=== PATIENT | male | born 1950 | race Caucasian/White ===

== ENCOUNTER 2017-08-06 08:04 | Day surgery (SDC) | payer MEDICARE, SELFPAY ==
[2017-08-06 08:20] VITALS: BP 118/75; PULSE 58; RESP 16; TEMP 36.1; O2SAT 99; BMI 25.1
--- NOTE | 2017-08-06 08:57 | PCM.HP.STD ---
Problem List (1) Colon cancer screening Status: Acute History of Present Illness Date of Admission: 08/06/17 The patient is a 67 year old M who presents for screening colonoscopy. Past Medical History Allergies No Known Allergies Allergy (Verified 07/30/17 11:16) Home Medications: Ambulatory Orders Medication Instructions Recorded Aspirin [Adult Low Dose Aspirin EC] 81 mg PO DAILY 03/15/15 Doxazosin Mesylate [Cardura] 1 mg PO QHS 03/15/15 Lisinopril [Zestril] 20 mg PO QHS 03/15/15 metoprolol succinate ER 25 mg 12.5 mg PO QHS 04/30/17 tablet,extended release 24 hr Smoking Status: Never smoker Tobacco Use: Non-smoker - *Family History Maternal History Items: No pertinent history Review of Systems Cardiovascular: Denies: Chest Pain, Chest Pressure, Chest Tightness, Palpitations Respiratory: Denies: Cough, Hemoptysis, Shortness of breath at rest, Shortness of breath upon exertion, Wheezing Gastrointestinal: Denies: Abdominal Pain, Constipation, Diarrhea, Hematemesis, Nausea, Melena, Vomiting VTE Information - Inpt Only VTE Present on Admission: No VTE Mechan Device Prophylaxis: None VTE Pharm Prophylaxis ordered?: No Reason prophylaxis not ordered:: Treatment Not Indicated Patient Problems: Active and Suspected Problems (Last Reviewed 04/30/17 @ 09:39 by Kylah Gallardo) Colon cancer screening (Acute) - Physical Exam Lungs: Clear to auscultation Cardiovascular: Regular rate, Regular Rhythm, No murmurs Abdomen: Bowel Sounds Present, Soft, Non Tender, Non-Distended Vital Signs Temp Pulse Resp BP Pulse Ox 97 F L 58 L 16 118/75 99 08/06/17 08:20 08/06/17 08:20 08/06/17 08:20 08/06/17 08:20 08/06/17 08:20 Oxygen Delivery Method Room Air Weight: 170 lb 3.15 oz Body Mass Index (BMI) 25.1 Assessment/Plan Active and Suspected Problems (Last Reviewed 04/30/17 @ 09:39 by Kylah Gallardo) Colon cancer screening (Acute) My plan is to perform a colonoscopy.
[2017-08-06 09:00] VITALS: BP 118/75; BP 96/41; PULSE 65; RESP 18; TEMP 36.3; O2SAT 96
--- NOTE | 2017-08-06 09:00 | OP.PCM_ITS ---
Problem List (1) Colon cancer screening Status: Acute Report of Operation Date of Procedure: 08/06/17 Pre-Operative Diagnosis: z12.11 screening colonoscopy Post-Operative Diagnosis: Same Surgery/Procedure Performed:: 43069 colonoscopy Type of Anesthesia:: MAC Anesthesiologist: Herbert Garg Description of Procedure: Patient was brought into the endoscopy suite. Placed on the left lateral decubitus position. Was given graded anesthesia. The scope was inserted into the rectum. The scope was directed through the sigmoid colon, descending colon , transverse colon, ascending colon, and into the cecum. Operative findings: 1. Cecum: Normal appearance no mass lesions normal ileocecal valve. 2. Ascending colon: Normal appearance no mass lesions. 3. Transverse colon: Normal appearance no mass lesions. 4. Descending colon: Normal appearance no mass lesions. 5. Sigmoid colon: Normal appearance no mass lesions a few scattered diverticuli were seen all small mouth. 6. Rectum: Normal appearance no mass lesions she had a moderate amount internal hemorrhoids identified. Scope was withdrawn digital rectal exam was performed showing no masses within the anus. Digital rectal exam was performed showing a smooth prostate with no nodules Patient had an excellent bowel prep the mucosal all look normal he has a stable colonoscopy and will not need to have a repeat colonoscopy for 10 years. - Admit VTE Documentation VTE Present on Admission: No VTE Mechan Device Prophylaxis: None VTE Pharm Prophylaxis ordered?: No Reason prophylaxis not ordered:: Treatment Not Indicated
[2017-08-06 09:05] VITALS: BP 118/75; BP 85/49; PULSE 63; RESP 18; O2SAT 94
[2017-08-06 09:10] VITALS: BP 118/75; BP 121/48; PULSE 65; RESP 18; O2SAT 98
[2017-08-06 09:15] VITALS: BP 103/56; BP 118/75; PULSE 62; RESP 18; TEMP 36.4; O2SAT 96
[2017-08-06 09:37] VITALS: BP 118/75
== END 2017-08-06 09:40 | disposition home or self-care (01) ==
LOC: EN 08:07 → AC 08:08
PROVIDERS: Family Provider Family Medicine; PCP Family Medicine; Visit Provider Surgery
PROC: 0DJD8ZZ Inspection of Lower Intestinal Tract, Via Natural or Artificial Opening Endoscopic (ICD-10-PCS; CPT 45378; principal; 2017-08-06 08:55)
DX: Z12.11 Encounter for screening for malignant neoplasm of colon (principal); K64.8 Other hemorrhoids; I10 Essential (primary) hypertension
CPT/HCPCS: G0121; J7120; J1610

== ENCOUNTER → 2017-09-08 13:05 | Outpatient (CLI) | payer MEDICARE, SELFPAY ==
--- NOTE | 2017-09-08 13:05 | DT_ITS ---
This patient was seen during an EMR downtime September 08, 2017 - September 15, 2017. This patient may have a combination of paper and electronic documentation or all paper documentation. All documentation is viewable within the e-chart portion of [employer] for each patient visit.
--- NOTE | 2017-09-10 14:56 | MRI_ITS ---
STUDY: MRI RIGHT KNEE REASON FOR EXAM: Medial knee pain, medial meniscal repair in 2013. TECHNIQUE: Standardized fat and water weighted pulse sequences were obtained in all 3 orthogonal planes. COMPARISON: MRI images 01/06/2015 and radiographs 03/08/2016. FINDINGS: There is a partial medial meniscectomy. There is a complex signal alteration of the posterior horn/posterior body of the medial meniscus (proton-density sagittal images 27-33; proton density coronal images 15-17), more suggestive of recurrent medial meniscal tear rather than scarring since there is a parameniscal cyst (T2 coronal images 13-17). There is peripheral subluxation of the medial meniscus. There is arthrosis of the medial femorotibial compartment with chondral thinning (T2 sagittal image 17). There is mild subchondral bone edema of the medial femoral condyle and tibial plateau (T2 coronal images 13-18), a stress phenomenon. Normal medial collateral ligamentous complex (MCL). Normal distal semimembranosus, gracilis and semitendinosus tendons. There is mild intrasubstance myxoid degeneration of the anterior horn of the lateral meniscus without discrete lateral meniscal tear. There is arthrosis of the lateral femorotibial compartment with partial-thickness chondral loss (T2 sagittal image 7). There is mild bone edema of the lateral femoral condyle and tibial plateau (T2 coronal images 15-18), a stress phenomenon. Normal proximal tibiofibular articulation. Normal lateral collateral (fibular) ligament. Normal popliteus tendon. Normal biceps femoris tendon. There is a chronic tear of the anterior cruciate ligament, likely a partial tear (T2 sagittal image 11; series 7 images 8, 9). Normal posterior cruciate ligament (PCL). Normal congruent patellofemoral articulation. There is mild arthrosis of the patellofemoral compartment with mild partial-thickness chondral loss (T2 sagittal image 11). Normal medial and lateral patellar retinaculum. Normal visualized quadriceps tendon. Normal patellar tendon. There is postoperative scarring in Hoffa's fat pad. There is a beotj-zt-jpkitrum sized joint effusion. There is a small popliteal cyst with mild extravasation of fluid (T2 sagittal images 15-22). The otherwise visualized osseous structures are unremarkable. MRI/Lower Ext Joint Only (Routine) IMPRESSION: Partial medial meniscectomy with signal alteration of the posterior horn/posterior body of the medial meniscus, more suggestive of recurrent medial meniscal tear rather than scarring since there is a parameniscal cyst. 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 Tricompartmental arthrosis. Mild subchondral bone edema of the medial and lateral femoral condyles, and medial and lateral tibial plateau, a stress phenomenon. Joint effusion. Small popliteal cyst with mild extravasation of fluid. Electronically Signed: Francois Downey MD at 9:26 EDT Tel , Service support ,
[2017-09-12 21:53] LABS: BUN 15 mg/dL (7-18); BUN/Creat Ratio 14.7 RATIO (10-20); Creatinine, Serum 1.02 mg/dL (0.70-1.30); EST Glomerular Filtration Rate 78 mL/min (>60); Est Glom Filt Rate - Afr Amer 95 mL/min (>60); Glucose 108 mg/dL (74-106)
[2017-09-12 21:54] LABS: ALB/GLOB Ratio 1.2 RATIO (0.9-2.4); AST(SGOT) 13 U/L (15-37); Alanine Aminotransfer ALT/SGPT 20 U/L (16-61); Albumin, Serum 3.5 g/dL (3.2-5.0); Alkaline Phosphatase 70 U/L (45-117); Anion Gap 8 (5-15); Calcium,Total 8.4 mg/dL (8.5-10.1); Chloride 107 mmol/L (98-107); Potassium 3.7 mmol/L (3.5-5.1); Protein, Total 6.5 g/dL (6.4-8.2); Sodium Level 140 mmol/L (136-145); Thyroid Stim Hormone (TSH) 0.95 uIU/mL (0.358-3.74)
[2017-09-12 22:01] LABS: International Normalized Ratio 1.1; Partial Thromboplast Time 29.2 Seconds (24.1-36.2); Prothrombin Time (Protime)PT. 13.8 SECONDS (11.7-14.9)
== END ==
PROVIDERS: Family Provider Family Medicine; PCP Family Medicine; Visit Provider Orthopaedic Surgery
DX: M23.91 Unspecified internal derangement of right knee (principal); R23.3 Spontaneous ecchymoses
CPT/HCPCS: 36415; 73721; 80053; 84443; 85610; 85730

== ENCOUNTER → 2017-09-23 09:42 | Outpatient (CLI) | payer MEDICARE, SELFPAY ==
[2017-09-23 10:44] LABS: Absolute Lymphocyte Count 1.94 X10^3/ul (0.83-4.51); Absolute Neutrophil Count 5.8 X10^3/uL (2.0-7.7); Basophil# 0.02 X10^3/uL; Basophil% 0.2 % (0-1); Eosinophil# 0.11 X10^3/uL; Eosinophils% 1.4 % (0-5); Lymphocyte # 1.94 X10^3/ul (4.0); Lymphocyte % 23.9 % (19-41); Mean Corp Hgb Conc 33.3 g/gl (32-36); Mean Corpuscular Hgb 31.4 pg (27.0-32.0); Mean Corpuscular Volume 94.3 fL (80-94); Mean Platelet Vol. 10.9 fl (6.2-12.0); Monocyte# 0.26 X10^3/uL; Monocyte% 3.2 % (0-10); Neutrophil # 5.79 X10^3/uL (2.7-7.7); Neutrophil % 71.2 % (47-70); Platelet Count 157 K/mm3 (150-450); RBC Distribution Width CV 13.1 % (11.6-14.6); RBC Distribution Width SD 45.2 fl (35.1-43.9); Red Blood Count 4.77 M/mm3 (4.6-6.2); White Blood Count 8.1 K/mm3 (4.4-11.0)
[2017-09-23 10:46] LABS: POSITIVE COUNT NO; POSITIVE DIFFERENTIAL NO; POSITIVE MORPHOLOGY NO
== END ==
PROVIDERS: Family Provider Family Medicine; PCP Family Medicine; Visit Provider Family Medicine
DX: R23.8 Other skin changes (principal)
CPT/HCPCS: 36415; 85025

== ENCOUNTER → 2017-09-24 09:43 | Outpatient (CLI) | payer MEDICARE, SELFPAY ==
--- NOTE | 2017-09-24 09:46 | RAD_ITS ---
STUDY: X-RAY - RIGHT KNEE REASON FOR EXAM: Male, 67 years old. Chronic pain TECHNIQUE: 4 view(s) of the knee. COMPARISON: None. FINDINGS: Normal visualized distal femur. Normal visualized proximal tibia and fibula. Normal proximal tibiofibular articulation. There is mild degenerative arthrosis of the medial femorotibial compartment. Normal lateral femorotibial compartment. Normal patellofemoral articulation. There is a soft tissue prominence in the suprapatellar region suggesting a small volume joint effusion. The soft tissue structures are unremarkable. RAD/Knee 4 or More Views IMPRESSION: There is mild degenerative arthrosis of the medial femorotibial compartment. There is a soft tissue prominence in the suprapatellar region suggesting a small volume joint effusion. Electronically Signed: Noel Gonzalez MD at 17:15 EDT , Service support ,
[2017-09-24 10:20] LABS: Lyme Ab Screen Interpretation REF LAB
[2017-09-25 13:38] LABS: Lyme Scn Total Ab w/Rflx <0.91 ISR (0.00-0.90)
== END ==
PROVIDERS: Family Provider Family Medicine; PCP Family Medicine; Visit Provider Orthopaedic Surgery
DX: M25.561 Pain in right knee (principal)
CPT/HCPCS: 36415; 73564; 86618

== ENCOUNTER → 2017-10-23 15:18 | Outpatient (CLI) | payer MEDICARE, SELFPAY ==
--- NOTE | 2017-10-23 15:20 | RAD_ITS ---
STUDY: X-RAY - LEFT HAND, ATTENTION MIDDLE FINGER REASON FOR EXAM: Male, 67 years old. Pain TECHNIQUE: 3 view(s) of the finger were obtained. COMPARISON: None. FINDINGS: Normal metacarpal head. Normal metacarpophalangeal joint. Normal proximal phalanx. Normal middle phalanx. Normal distal phalanx. Normal proximal interphalangeal joint. Normal distal interphalangeal joint. There is no soft tissue swelling. RAD/Finger(s) Min 2 Views IMPRESSION: Normal x-ray examination of the finger. Electronically Signed: Arthur Johnson MD at 16:01 EDT , Service support ,
== END ==
PROVIDERS: Family Provider Family Medicine; PCP Family Medicine; Visit Provider Surgery
DX: M67.442 Ganglion, left hand (principal); L60.8 Other nail disorders
CPT/HCPCS: 73140

== ENCOUNTER → 2017-10-30 12:36 | Outpatient (CLI) | payer MEDICARE, SELFPAY ==
[2017-10-30 12:41] LABS: Red Blood Cells-Urine 0 SEEN /hpf (0-5); Squamous Epithelial Cells - UA 0 SEEN /hpf (0-5)
[2017-10-30 13:39] LABS: Color, Urine Yellow (Yellow); Glucose, Dipstick Normal (Normal); Ketone-Dipstick 50 mg/dl (Negative); Leukocyte Esterase-Dipstick 25 /ul (Negative); Nitrite-Dipstick Negative (Negative); Occult Blood-Urine 10 /ul (Negative); Protein-Dipstick 15 mg/dl (Negative); Specific Gravity, Urine 1.015 (1.002-1.030); Urine Bilirubin Dipstick Negative (Negative); Urine Clarity Clear (Clear); Urine Urobilinogen Normal (Normal)
[2017-10-30 13:48] LABS: Bacteria 1+ /hpf (None Seen); Mucous, Urine 2+ /hpf (<or=2+); White Blood Cells 0-5 SEEN /hpf (0-5)
== END ==
PROVIDERS: Family Provider Family Medicine; PCP Family Medicine; Visit Provider Specialist
DX: G89.18 Other acute postprocedural pain (principal)
CPT/HCPCS: 81001

== ENCOUNTER 2017-11-02 13:48 | Emergency (ER) | payer MEDICARE, SELFPAY ==
[2017-11-02 13:49] VITALS: BP 124/64; PULSE 87; RESP 16; TEMP 36.6; O2SAT 98; BMI 27.3
--- NOTE | 2017-11-02 13:59 | ED.DCSUM_ITS ---
- ER Visit Summary Date of Service: 11/02/17 Chief Complaint: Chest pain History of Present Illness: The patient is a 67 M with one episode of sharp stabbing chest pain started an hour prior to arrival lasted about 20 minutes. No radiation. No tearing pain. No fever chills. No PE risk factors, no back pain. No pleuritic component. Physical Examination: Not appear in acute distress. Moist mucous membranes, no obvious facial deformity No C-spine tenderness supple neck. Regular rate and rhythm without any obvious murmurs Clear lungs bilaterally speaking in full sentences without any obvious respiratory distress Abdomen soft and nontender no guarding or rebound Moves all extremities without any difficulty or pain. Skin does not show any obvious rashes or lesions, no trauma. Alert oriented ?3 with no gross focal deficit Emergency Department Course and Treatment: Patient had an unremarkable workup, however he has a history of cardiomyopathy, hypertension, hypercholesterolemia and is a heavy smoker therefore I will admit him. Impression: Chest pain This note was generated with [employer] dictation software. It may contain incorrect words, spelling, and punctuation that were not noted in review of the chart prior to signing ED Disposition - Plan for ED Patient: Chief Complaint: Lower Extremity Injury Referrals: Hammad Burr MD [Primary Care Provider] -
--- NOTE | 2017-11-02 14:09 | RAD_ITS ---
STUDY: X-RAY - RIGHT KNEE REASON FOR EXAM: Male, 67 years old. Pain and swelling. TECHNIQUE: For view(s) of the knee. COMPARISON: February 21, 2014 radiograph FINDINGS: Right-sided hip arthroplasty. No evidence for periprosthetic fractures. Joint effusion. Subcutaneous emphysema. Subtle lucency in the distal right femur noted which was not seen on previous examination IMPRESSION: Status post right-sided knee arthroplasty. No evidence for acute fractures. Subtle lucency in the distal right femur noted not seen on previous examination. Differential considerations include intraosseous abscess however nonspecific in appearance Electronically Signed: Vinod Brown, at 15:09 EDT Tel , Service support , RAD/Knee 4 or More Views
[2017-11-02 15:19] LABS: Anion Gap 4 (5-15); BUN 15 mg/dL (7-18); BUN/Creat Ratio 12.2 RATIO (10-20); Calcium,Total 9.1 mg/dL (8.5-10.1); Chloride 101 mmol/L (98-107); Creatinine, Serum 1.23 mg/dL (0.70-1.30); EST Glomerular Filtration Rate 63 mL/min (>60); Est Glom Filt Rate - Afr Amer 76 mL/min (>60); Estimated Creatinine Clearance 55.98 ml/min; Glucose 128 mg/dL (74-106); Potassium 4.3 mmol/L (3.5-5.1); Sodium Level 134 mmol/L (136-145)
--- NOTE | 2017-11-02 15:34 | ED.DCSUM_ITS ---
- ER Visit Summary Date of Service: 11/02/17 Prior Chest pain chart dictated in error, please disregard Chief Complaint: Knee pain History of Present Illness: The patient is a 67 M presents with right knee pain. He had a right total knee augmentation 5 days ago. He concurrently developed a catheter associated urinary tract infection and he is on Bactrim he had high fevers, however they are improving. His issue today with edema of the right knee region there is some more erythema today. He does not have significant pain when sitting down this is baseline since the surgery. Physical Examination: Not appear in acute distress. Moist mucous membranes, no obvious facial deformity No C-spine tenderness supple neck. Regular rate and rhythm without any obvious murmurs Clear lungs bilaterally speaking in full sentences without any obvious respiratory distress Abdomen soft and nontender no guarding or rebound Knee evaluation reveals diffuse edema some ecchymoses. Very slight erythema is present around the staple site, no pallor. Leonel are clean dry and intact I cannot expectorate any discharge. Skin does not show any obvious rashes or lesions, no trauma. Alert oriented ?3 with no gross focal deficit Emergency Department Course and Treatment: X-rays unremarkable his workup in the emergency department is unremarkable all discussed with Dr. Myers, per his request I added a an ESR and CRP, he will follow these up tomorrow morning in the office in less than 24 hours. He does not wish any further antibiotics. He told patient to see him in the office tomorrow morning. I discussed with the patient. He will be discharged in stable condition. Impression: Postop knee pain This note was generated with [employer] dictation software. It may contain incorrect words, spelling, and punctuation that were not noted in review of the chart prior to signing ED Disposition - Plan for ED Patient: Disposition: Home or Assisted Living Chief Complaint: Lower Extremity Injury Instructions: ED Effusion Knee Referrals: Thanh Myers MD [STAFF PHYSICIAN] - 2 Days
[2017-11-02 15:35] LABS: Absolute Lymphocyte Count 0.52 X10^3/ul (0.83-4.51); Absolute Neutrophil Count 6.4 X10^3/uL (2.0-7.7); Basophil# 0.02 X10^3/uL; Basophil% 0.3 % (0-1); Eosinophil# 0.07 X10^3/uL; Eosinophils% 0.9 % (0-5); Hematocrit 37.2 % (40-54); Hemoglobin 12.4 g/dl (13.0-16.5); Lymphocyte # 0.52 X10^3/ul (4.0); Mean Corp Hgb Conc 33.3 g/gl (32-36); Mean Corpuscular Hgb 31.6 pg (27.0-32.0); Mean Corpuscular Volume 94.7 fL (80-94); Mean Platelet Vol. 9.6 fl (6.2-12.0); Monocyte# 0.45 X10^3/uL; Neutrophil # 6.39 X10^3/uL (2.7-7.7); Neutrophil % 85.7 % (47-70); Platelet Count 176 K/mm3 (150-450); RBC Distribution Width CV 12.4 % (11.6-14.6); RBC Distribution Width SD 42.1 fl (35.1-43.9); Red Blood Count 3.93 M/mm3 (4.6-6.2); White Blood Count 7.5 K/mm3 (4.4-11.0)
[2017-11-02 15:36] LABS: Differential Indicated SCAN CRITERIA MET; POSITIVE COUNT NO; POSITIVE DIFFERENTIAL YES; POSITIVE MORPHOLOGY NO
[2017-11-02 16:00] VITALS: BP 138/72; PULSE 72; RESP 16; O2SAT 94
[2017-11-02 16:05] LABS: Differential Comment SCANNED
[2017-11-02 16:08] LABS: Erythrocyte Sedimentation Rate 30 mm/hr (0-20)
== END 2017-11-02 16:01 | disposition home or self-care (01) ==
PROVIDERS: Emergency Provider Emergency Medicine; Family Provider Family Medicine; PCP Family Medicine
DX: G89.18 Other acute postprocedural pain (principal); M25.569 Pain in unspecified knee; R07.9 Chest pain, unspecified; R21 Rash and other nonspecific skin eruption; I10 Essential (primary) hypertension; E78.00 Pure hypercholesterolemia, unspecified; F17.200 Nicotine dependence, unspecified, uncomplicated; T83.518A Infection and inflammatory reaction due to other urinary catheter, initial encounter
CPT/HCPCS: 73564; 80048; 85025; 85652; 86140; 99282; A4216

== ENCOUNTER 2017-12-02 06:33 | Day surgery (SDC) | payer MEDICARE, SELFPAY ==
--- NOTE | 2017-12-01 23:41 | PCM.HP.BLA ---
History and Physical Date of Admission: 12/02/17 HISTORY OF PRESENT ILLNESS 67 year old man presents with a soft tissue mass on dorsum left long finger on the radial aspect at the DIP joint. It is clinically consistent with a mucous cyst. It has enlarged over the last several months. He denies any trauma. He denies any fever. He denies any numbness. He has also noted some nail grooving over the last couple of months. He has noted occasional small amounts of drainage from the finger nail. There has been no odor. He states it doesn't affect his activities of daily living. He is right hand dominant. Preop he had an Xray which was normal. PAST MEDICAL HISTORY Cataracts, bilateral Hearing problem Heart murmur Hypertension PAST SURGICAL HISTORY lateral meniscus repair of right knee cataract extraction gynecomastia surgery hydrocelectomy inguinal herniorrhaphy shoulder surgery tonsillectomy and adenoidectomy colonoscopy right knee arthroscopy right total knee surgery ALLERGIES morphine MEDICATIONS Aspirin [Adult Low Dose Aspirin EC] 81 mg PO DAILY 03/15/15 [History Confirmed 10/23/17] Doxazosin Mesylate [Cardura] 1 mg PO QHS 03/15/15 [History Confirmed 10/23/17] Lisinopril [Zestril] 20 mg PO QHS 03/15/15 [History Confirmed 10/23/17] metoprolol succinate ER 25 mg tablet,extended release 24 hr 12.5 mg PO QHS 04/30/17 [History Confirmed 10/23/17] FAMILY HISTORY Father - Diabetes, Heart disease, Hypertension, CVA (cerebral vascular accident) Mother - Hypertension, Cancer, Alzheimer's dementia, Anesthesia complication, Breast cancer SOCIAL HISTORY Smoking Status: Never smoker alcohol intake: never substance use type: does not use REVIEW OF SYSTEMS General - Denies fever, fatigue, and weight loss. Eyes - Denies cataracts and glaucoma. ENT - Denies nasal congestion and sore throat. Endocrine - Denies excessive thirst and urination. Skin - Denies suspicious lesions and skin cancer. Musculoskeletal - Denies joint pain, joint stiffness, weakness of muscles and joints, back pain, and arthritis. On the dorsum left long finger on the radial aspect at the DIP joint is a mucous cyst with nail grooving. Neuro - Denies headaches. Cardiovascular - Denies chest pain, fatigue, and shortness of breath with exertion. Psych - Denies anxiety and depression. Respiratory - Denies chronic cough and shortness of breath. Gastrointestinal - Denies nausea, vomiting, diarrhea, and constipation. Hematologic - Denies abnormal bruising and bleeding. Genitourinary - Denies hematuria and urinary frequency. PHYSICAL EXAMINATION General - Alert and Oriented HEENT - PERRL. EOMI. Throat is clear. Neck - Supple and nontender. No cervical adenopathy. Lungs - Clear to auscultation. Heart - Regular rate and rhythm. Abdomen - Soft and nondistended. Extremities - FROM. No axillary adenopathy. Radial pulses are palpable. On the dorsum left long finger on the radial aspect at the DIP joint is a soft tissue mass consistent with a mucous cyst. Measures 1 cm. Overlying skin is a little thin. No evidence of infection. There is nail grooving. Flexion and extension are intact. No sensory deficits. Fingers are warm with good capillary refill. No axillary adenopathy. Patient is right hand dominant. Neuro - CN II-XII grossly intact. Psych - Normal mood and affect. ASSESSMENT 1. 1 cm mucous cyst left long finger on the radial aspect at the DIP joint. 2. Nail grooving. PLAN Patient has a soft tissue mass left long finger that is clinically consistent with a mucous cyst. He has been developing nail grooving. Recommend excision of this mass and send it to Pathology for analysis to rule out carcinoma. Will need to excise any osteophytes to minimize recurrence. Sometimes these cysts extend underneath the extensor tendon. Postoperatively may need an extension splint for a few weeks to allow the weakened tendon to strengthen. Excising this mass should take pressure off the growth center of the nail complex and improve the nail grooving. Because the overlying skin is a little thin, will probably remove it. Since the dissection extends down to the tendon and bone, a skin graft would not be adequate for wound closure. He would need a dorsal skin advancement flap for reconstruction. Preop he had an Xray which was normal. Patient was informed of the risks and complications of the procedure including alternatives to surgery. These were discussed with the patient personally. Patient voices understanding and wishes to proceed. Some of the risks and complications were included in a form from the [employer]. Some of the risks and complications that were discussed included but were not inclusive of failure to diagnose including symptom relief, pain, infection, numbness, stiffness, loss of digit, RSD (CRPS), need for further surgery, contracture, nail deformity and wound healing problems.
[2017-12-02] VITALS (7 sets, daily range): BP systolic 104–135; BP diastolic 62–80; PULSE 65–75; RESP 16–18; TEMP 36.4–36.6; O2SAT 91–94; BMI 26.7
--- NOTE | 2017-12-02 08:00 | CYST_PTH ---
PATIENT: CUAUHTEMOC FUCHS LOC: [facility] [place] U#:[id number] AGE/SX: 67/M ROOM: RE12/02/[address]: Dr. Gunner Ball MD : 1950 BED: DIS: 12/02/2017 SPEC #: [id number] RECD: 12/02/17 13:50 STATUS: MOHIT SHERIDAN #: [id number] KATELYN: 12/02/17 08:[address]: Gunner Ball DEPT: SURGICAL PATHOLOGY RECD BY: Jl Marie ENTERED: 12/02/17 13:50 SP TYPE: Cyst OTHR DR: Dr. Hammad Burr MD Tissues: CYST Procedures: Surgery Specimen Level IV HEADER OPERATION: Excision mucous cyst, left long finger with skin flap PRE-OP DIAGNOSIS: Mucous cyst left long finger TISSUE SUBMITTED: Mucous cyst left long finger MICROSCOPIC DIAGNOSIS Mucous cyst of left long finger, biopsy: Fibrous walled cyst fragments consistent with mucous cyst. Fragments of hyaline cartilage and bone with mild reactive change. AM:kade 12/04/17 MICROSCOPIC DESCRIPTION Slides are reviewed. GROSS DESCRIPTION Received in fixative is one container labeled with the patient's name and designated mucous cyst left long finger. The specimen consists of multiple irregular fragments of light fatima-white soft tissue that in aggregate measure 2.5 x 1 x 0.1 cm. The specimen is totally submitted in one cassette. / AM:kade 12/02/17 TC:5 CPT: 29168
[2017-12-02] MEDS: Cefazolin 2 GM in 0.9% Normal Saline 100 ML IV (08:10)
[2017-12-02] MEDS: Mupirocin Ointment 22gm Tube 1 APPLIC (08:40)
--- NOTE | 2017-12-02 09:20 | PCM.IMDPSTOP ---
Immediate Post-Op Note Date of Procedure: 12/02/17 Primary Surgeon/Physician: Gunner Ball costume maker: None Pre-Operative Diagnosis: 1. 1 cm mucous cyst left long finger on the radial aspect at the DIP joint. 2. Nail grooving. Post-Operative Diagnosis: Same. Surgery/Procedure Performed:: Excision 1 cm mucous cyst left long finger on the radial aspect at the DIP joint. Description of Surgical Findings:: 67 year old man presents with a soft tissue mass on dorsum left long finger on the radial aspect at the DIP joint. It is clinically consistent with a mucous cyst. It has enlarged over the last several months. He denies any trauma. He denies any fever. He denies any numbness. He has also noted some nail grooving over the last couple of months. He has noted occasional small amounts of drainage from the finger nail. There has been no odor. He states it doesn't affect his activities of daily living. He is right hand dominant. Today the patient underwent excision 1 cm mucous cyst left long finger on the radial aspect at the DIP joint. Total tourniquet time - 50 minutes. Estimated Blood Loss: 2 ml. Specimen's removed: Mucous cyst and bony spur left long finger to Pathology. Drains: None. Type of Anesthesia:: Local MAC - xylocaine with epinephrine digital metacarpal block and IV sedation. - Admit VTE Documentation VTE Present on Admission: No VTE Mechan Device Prophylaxis: SCD's VTE Pharm Prophylaxis ordered?: No
--- NOTE | 2017-12-02 09:35 | PCM.DC ---
You will use the following diet at home:: No restrictions Discharge Activity: May not drive while taking narcotic pain medications., May Shower - place plastic bag over left hand when showering., - - keep left hand elevated. no heavy lifting. May shower in (days): 1 - place plastic bag over left hand when showering. May resume sexual activity in: No Restrictions Weight Bearing Status: Weight bearing as tolerated Lifting Restrictions: 20 lbs. Keep extremity elevated above heart level: Left Arm Call your doctor if your incision/area has: Continuous Slow Oozing, Sudden Increased Bleeding, Increased Pain/ Swelling, Increased Redness, Foul Smelling Discharge, Swelling at the incision site Call your doctor if you observe: Fever of 101 or Higher, Coldness, Increased Pain, Shortness of breath, Chest pain, Calf discomfort, Uncontrolled pain Change Dressing in (Days):: 7 - will change dressing in office. Cleanse incision/area with: - - wear plastic bag over left hand when showering. Allergies/Adverse Reactions: Allergies morphine Adverse Reaction (Verified 12/02/17 06:52) Nausea Medications to take at Discharge Aspirin [Adult Low Dose Aspirin EC] 81 mg PO DAILY 03/15/15 Doxazosin Mesylate [Cardura] 1 mg PO QHS 03/15/15 Lisinopril [Zestril] 20 mg PO QHS 03/15/15 metoprolol succinate ER 25 mg tablet,extended release 24 hr 12.5 mg PO QHS 04/30/17 Cefadroxil [Duricef] 500 mg PO BID #10 cap 12/02/17 Lactobacillus Acidophilus/Fos [Acidophilus Probiotic Tablet] 1 ea PO BID #10 tab 12/02/17 Oxycodone HCl/Acetaminophen [Percocet 5/325] 1 - 2 tab PO 4X/DAY PRN PRN 4 Days #30 tab 12/02/17 The following prescriptions were given: Oxycodone HCl/Acetaminophen [Percocet 5/325] 1 - 2 tab PO 4X/DAY PRN PRN 4 Days #30 tab PRN Reason: Pain Cefadroxil [Duricef] 500 mg PO BID #10 cap Lactobacillus Acidophilus/Fos [Acidophilus Probiotic Tablet] 1 ea PO BID #10 tab Primary Care Physician: Hammad Burr MD [Primary Care Provider] - Test Results: Test results from this visit will be discussed in further detail at your follow-up appointment, if applicable. Please Follow Up With: Gunner Ball MD When: one week. call [phone] for appt. Proposed Discharge Date: 12/02/17
--- NOTE | 2017-12-02 17:23 | PCM.OPRPT ---
Report of Operation Date of Procedure: 12/02/17 Pre-Operative Diagnosis: 1. 1 cm mucous cyst left long finger on the radial aspect at the DIP joint. 2. Nail grooving. Post-Operative Diagnosis: Same. Surgery/Procedure Performed:: Excision 1 cm mucous cyst left long finger on the radial aspect at the DIP joint. Description of Surgical Findings:: 67 year old man presents with a soft tissue mass on dorsum left long finger on the radial aspect at the DIP joint. It is clinically consistent with a mucous cyst. It has enlarged over the last several months. He denies any trauma. He denies any fever. He denies any numbness. He has also noted some nail grooving over the last couple of months. He has noted occasional small amounts of drainage from the finger nail. There has been no odor. He states it doesn't affect his activities of daily living. He is right hand dominant. Patient was informed of the risks and complications of the procedure including alternatives to surgery. These were discussed with the patient personally. Patient voices understanding and wishes to proceed. Some of the risks and complications were included in a form from the [employer]. Some of the risks and complications that were discussed included but were not inclusive of failure to diagnose including symptom relief, pain, infection, numbness, stiffness, loss of digit, RSD (CRPS), need for further surgery, contracture, nail deformity and wound healing problems. Total tourniquet time - 50 minutes. 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 Specimen's removed: Mucous cyst and bony spur left long finger to Pathology. Drains: None. Estimated Blood Loss (mL): 2 ml. Description of Procedure: Patient was taken to OR in supine position and was given IV sedation. The left long finger was prepped and draped in the usual fashion. SCD's were placed for DVT prophylaxis. Perioperative antibiotics were given intravenously. The base of the left long finger at the metacarpal level was infiltrated with xylocaine and epinephrine. After waiting 5 minutes for the anesthetic to take effect, I placed a tourniquet at the base of the left long finger. I made a horizontal incision just proximal to the eponychial fold and extended the incision vertically on the radial aspect. I dissected down to the extensor tendon. The mucous cyst was seen. It was located radial to the extensor tendon. It was excised down to the bone. There was some osteophytic spurs at the level of the DIP joint and they were excised with rongeurs to minimize recurrence. Further exploration showed there was no cyst extension underneath the tendon and there was no cyst seen on the ulnar aspect of the tendon. There was some capsular tissue extending to the eponychial fold which is where there was some drainage of the cyst preoperatively. Because the drainage came out of the eponychial fold, there was no pressure on the distal skin. Therefore no skin needed to be excised. So I should be able to close the wound primarily without needing a dorsal advancement skin flap. I excised this capsular tissue to minimize recurrence. The wound was irrigated with saline. I closed the wound in multiple layers with 5-0 Monocryl interrupted sutures for the deep dermis and subcutaneous tissue. The skin was approximated with 5-0 Prolene simple interrupted sutures. The tourniquet was released after 70 minutes. Hemostasis was obtained with gentle pressure and elevation. Antibiotic ointment was applied to the suture line followed by xeroform gauze and 2x2 gauze and 2 inch noemy wrap. Patient tolerated the procedure well and was sent to PACU in satisfactory condition. Patient will be sent home on antibiotics and pain medication. Patient will followup in a week for a wound check and for discussion of the pathology report. The sutures will be removed in two weeks. Will encourage range of motion exercises for the proximal finger. Can start bending the DIP joint after the sutures are removed. The tendon will have some swelling from the dissection, so it is a little weaker than usual. Will rest the distal tendon for a couple of weeks until the sutures are removed, and then encourage range of motion of the DIP joint as well. Any stiffness issues will necessitate evaluation by OT for range of motion exercises, strengthening, and edema management. Grafts/Implants Used: None. - Complications None. - Admit VTE Documentation VTE Present on Admission: No VTE Mechan Device Prophylaxis: SCD's VTE Pharm Prophylaxis ordered?: No Code Visit Surgery Charges CPT - 72710 ICD-10 - M67.442, L60.8
== END 2017-12-02 11:35 | disposition home or self-care (01) ==
LOC: SDC 06:33 → AC 06:34
PROVIDERS: Family Provider Family Medicine; PCP Family Medicine; Visit Provider Surgery
PROC: (CPT 26160; principal; 2017-12-02 07:50)
DX: M67.442 Ganglion, left hand (principal); L60.8 Other nail disorders; M67.844 Other specified disorders of tendon, left hand; I10 Essential (primary) hypertension
CPT/HCPCS: 26160; 88304; 88305; J7120

== ENCOUNTER → 2018-01-14 10:52 | Outpatient (CLI) | payer MEDICARE, SELFPAY ==
[2018-01-14 12:30] LABS: Erythrocyte Sedimentation Rate 9 mm/hr (0-20)
[2018-01-14 12:41] LABS: Absolute Lymphocyte Count 1.37 X10^3/ul (0.83-4.51); Absolute Neutrophil Count 4.4 X10^3/uL (2.0-7.7); Basophil# 0.02 X10^3/uL; Basophil% 0.3 % (0-1); Eosinophil# 0.09 X10^3/uL; Eosinophils% 1.4 % (0-5); Hematocrit 45.6 % (40-54); Hemoglobin 15.2 g/dl (13.0-16.5); Lymphocyte # 1.37 X10^3/ul (4.0); Lymphocyte % 21.9 % (19-41); Mean Corp Hgb Conc 33.3 g/gl (32-36); Mean Corpuscular Hgb 31.1 pg (27.0-32.0); Mean Corpuscular Volume 93.4 fL (80-94); Monocyte% 6.4 % (0-10); Neutrophil # 4.36 X10^3/uL (2.7-7.7); Neutrophil % 69.8 % (47-70); Platelet Count 154 K/mm3 (150-450); RBC Distribution Width CV 12.9 % (11.6-14.6); RBC Distribution Width SD 43.5 fl (35.1-43.9); Red Blood Count 4.88 M/mm3 (4.6-6.2); White Blood Count 6.3 K/mm3 (4.4-11.0)
[2018-01-14 12:45] LABS: ALB/GLOB Ratio 1.1 RATIO (0.9-2.4); AST(SGOT) 15 U/L (15-37); Alanine Aminotransfer ALT/SGPT 28 U/L (16-61); Albumin, Serum 3.7 g/dL (3.2-5.0); Alkaline Phosphatase 89 U/L (45-117); Anion Gap 6 (5-15); BUN 16 mg/dL (7-18); BUN/Creat Ratio 15.7 RATIO (10-20); CRP < 2.90 mg/L (0.0-3.0); Calcium,Total 8.7 mg/dL (8.5-10.1); Chloride 107 mmol/L (98-107); Creatinine, Serum 1.02 mg/dL (0.70-1.30); EST Glomerular Filtration Rate 78 mL/min (>60); Est Glom Filt Rate - Afr Amer 94 mL/min (>60); Globulin 3.3 g/dL (2.2-4.2); Glucose 110 mg/dL (74-106); Potassium 4.1 mmol/L (3.5-5.1); Sodium Level 139 mmol/L (136-145)
[2018-01-14 12:50] LABS: POSITIVE COUNT NO; POSITIVE DIFFERENTIAL NO; POSITIVE MORPHOLOGY NO
== END ==
PROVIDERS: Family Provider Family Medicine; PCP Family Medicine; Visit Provider Family Medicine
DX: R70.0 Elevated erythrocyte sedimentation rate (principal)
CPT/HCPCS: 36415; 80053; 85025; 85652; 86140

== ENCOUNTER → 2018-02-25 10:48 | Outpatient (CLI) | payer MEDICARE, SELFPAY ==
[2017-12-02 06:57] VITALS: BMI 26.7
--- NOTE | 2018-02-25 11:05 | EKG12_ITS ---
Test Reason : PRE-OP Blood Pressure : / mmHG Vent. Rate : 055 BPM Atrial Rate : 055 BPM P-R Int : 156 ms QRS Dur : 086 ms QT Int : 382 ms P-R-T Axes : 006 000 -07 degrees QTc Int : 365 ms Sinus bradycardia Otherwise normal ECG Confirmed by KEHINDE KENDRICK ([id number]), deputy editor in chief LUISA SOLIS ([id number]) on 02/25/2018 2:35:54 PM Referred By: Zackery Spicer Confirmed By:KEHINDE KENDRICK
[2018-02-25 11:20] LABS: Hematocrit 47.2 % (40-54); Hemoglobin 15.7 g/dl (13.0-16.5); Mean Corp Hgb Conc 33.3 g/gl (32-36); Mean Corpuscular Hgb 30.9 pg (27.0-32.0); Mean Corpuscular Volume 92.9 fL (80-94); Mean Platelet Vol. 10.8 fl (6.2-12.0); Platelet Count 163 K/mm3 (150-450); Red Blood Count 5.08 M/mm3 (4.6-6.2); White Blood Count 6.2 K/mm3 (4.4-11.0)
[2018-02-25 11:30] LABS: Scan Indicated on CBC? Y/N NO
[2018-02-25 11:43] LABS: Anion Gap 7 (5-15); BUN 15 mg/dL (7-18); BUN/Creat Ratio 13.6 RATIO (10-20); Chloride 106 mmol/L (98-107); EST Glomerular Filtration Rate 71 mL/min (>60); Est Glom Filt Rate - Afr Amer 86 mL/min (>60); Glucose 84 mg/dL (74-106); Potassium 4.6 mmol/L (3.5-5.1); Sodium Level 141 mmol/L (136-145)
== END ==
PROVIDERS: Family Provider Family Medicine; PCP Family Medicine; Referring Provider Otolaryngology; Visit Provider Otolaryngology
DX: Z01.818 Encounter for other preprocedural examination (principal)
CPT/HCPCS: 36415; 80048; 85027; 93005

== ENCOUNTER → 2018-03-02 16:57 | Outpatient (CLI) | payer MEDICARE, SELFPAY ==
[2017-12-02 06:57] VITALS: BMI 26.7
--- NOTE | 2018-03-02 11:45 | LES_PTH ---
PATIENT: CUAUHTEMOC FUCHS LOC: [facility] U#:[id number] AGE/SX: 74/M ROOM: RE03/02/[address]: Dr. Zackery Spicer MD : [id number] BED: DIS: SPEC #: [id number] RECD: 03/02/18 16:10 STATUS: MOHIT SHERIDAN #: [id number] KATELYN: 03/02/18 11:[address]: Zackery Spicer DEPT: SURGICAL PATHOLOGY RECD BY: Divine Pelaez ENTERED: 03/03/18 10:05 SP TYPE: Lesion OTHR DR: Dr. Hammad Burr MD Tissues: A - Skin of external ear, NOS B - Skin of external ear, NOS Procedures: Surgery Specimen Level IV HEADER OPERATION: Excision right ear mass PRE-OP DIAGNOSIS: Benign neoplasm, right ear TISSUE SUBMITTED: A. Right external ear neoplasm, B. Additional tissue MICROSCOPIC DIAGNOSIS A. Right external ear neoplasm, biopsy: Seborrheic keratosis, inflamed. Solar elastosis. See comment. B. Right external ear lesion, additional tissue, biopsy: Skin and soft tissue with solar elastosis. Fragments of hyaline cartilage with no pathologic change. See comment. AM:kade 03/04/18 COMMENT A & B. There is no evidence of malignancy. MICROSCOPIC DESCRIPTION Slides are reviewed. GROSS DESCRIPTION A - Received in fixative is one container labeled with the patient's name and designated right external ear neoplasm. The specimen consists of a piece of fatima-white skin ellipse measuring 2.3 x 0.9 cm and up to 0.2 cm in thickness. There is a brownish, raised lesion on the surface measuring 2 x 0.7 cm. The specimen is inked and submitted entirely in one cassette. It will be serially sectioned at the time of embedding. B - Received in fixative is one container labeled with the patient's name and designated additional tissue. The specimen consists of a piece of skin with underlying tissue and cartilage measuring 2.5 x 0.5 cm and up to 0.4 cm in thickness. The specimen is inked and submitted entirely in one cassette. It will be serially sectioned at the time of embedding. / TEREZA:kade 03/03/18 TC:5 CPT: 39888 x2
--- OUTSIDE RECORDS SUMMARY | 2018-04-14 16:17 | XMS RPT_ITS ---
:1950 Author Organization OHIP Support Name Relationship Address Phone SHILA JOSEPHGUIDO Unavailable [address] + [place] [address] R Unavailable Unavailable Unavailable LITO FUCHS Unavailable [address] + [place] [address] R Unavailable Unavailable Unavailable LITO FUCHS Unavailable [address] + [place] [address] R Unavailable Unavailable Unavailable LITO FUCHS Unavailable [address] + [place] [address] R Unavailable Unavailable Unavailable LITO FUCHS Unavailable [address] + [place] [address] R Unavailable Unavailable Unavailable LITO FUCHS Unavailable [address] + [place] [address] R Unavailable Unavailable Unavailable LITO FUCHS Unavailable [address] + [place] [address] R Unavailable Unavailable Unavailable LITO FUCHS Unavailable [address] + [place] [address] R Unavailable Unavailable Unavailable LITO FUCHS Unavailable [address] + [place] [address] R Unavailable Unavailable Unavailable LITO FUCHS Unavailable [address] + [place] [address] R Unavailable Unavailable Unavailable LITO FUCHS Unavailable [address] + [place] [address] R Unavailable Unavailable Unavailable LITO FUCHS Unavailable [address] + [place] [address] R Unavailable Unavailable Unavailable LITO FUCHS Unavailable [address] + [place] [address] R Unavailable Unavailable Unavailable LITO FUCHS Unavailable Unavailable + ~(330 LITO FUCHS Unavailable Unavailable + ~(330 LITO FUCHS Unavailable [address] + [place] [address] R Unavailable Unavailable Unavailable LITO FUCHS Unavailable [address] + [place] [address] R Unavailable Unavailable Unavailable LITO FUCHS Unavailable Unavailable + ~(330 LITO FUCHS Unavailable [address] + [place] [address] R Unavailable Unavailable Unavailable LITO FUCHS Unavailable [address] + [place] [address] R Unavailable Unavailable Unavailable LITO FUCHS Unavailable [address] + [place] [address] R Unavailable Unavailable Unavailable LITO FUCHS Unavailable [address] [phone] [place] [address] R Unavailable Unavailable Unavailable LITO FUCHS Unavailable [address] [phone] [place] [address] R Unavailable Unavailable Unavailable LITO FUCHS Unavailable [address] + [place] [address] R Unavailable Unavailable Unavailable LITO FUCHS Unavailable [address] [phone] [place] [address] R Unavailable Unavailable Unavailable LITO FUCHS Unavailable [address] [phone] [place] [address] R Unavailable Unavailable Unavailable LITO FUCHS Unavailable [address] [phone] [place] [address] R Unavailable Unavailable Unavailable LITO FUCHS Unavailable [address] [phone] [place] [address] R Unavailable Unavailable Unavailable LITO FUCHS Unavailable [address] [phone] [place] [address] R Unavailable Unavailable Unavailable LITO FUCHS Unavailable [address] [phone] [place] [address] R Unavailable Unavailable Unavailable Care Team Providers Name Role Phone MD. CITLALY ROMANO MD. Consulting Unavailable MICKEY MALIK, THANH Mayen Admitting Unavailable LENO FLETCHER, DAMIAN A Primary Care Unavailable MICKEY MALIK, THANH Mayen Attending Unavailable LENO FLETCHER, DAMIAN A Primary Care Unavailable THANH AREVALO MD Attending Unavailable Connor Mcclendon Attending Unavailable Burr, Damian Referring Unavailable Burr, Damian Primary Care Unavailable Nurse, Surgery Attending Unavailable Burr, Damian Referring Unavailable Jerson Buckley Attending Unavailable Burr, Damian Primary Care Unavailable Blanco, Jerson Referring Unavailable Jerson Buckley Attending Unavailable Marcio, Jerson Referring Unavailable Burr, Damian Primary Care Unavailable Jerson Buckley Consulting Unavailable Connor Mcclendon Attending Unavailable Burr, Damian Referring Unavailable Burr, Damian Primary Care Unavailable Jerson Buckley Attending Unavailable Burr, Damian Referring Unavailable Burr, Damian Primary Care Unavailable Connor Mcclendon Attending Unavailable Hakan, Connor Referring Unavailable Burr, Damian Primary Care Unavailable Yakelin Lee Attending Unavailable Connor Mcclendon Attending Unavailable Burr, Damian Referring Unavailable Burr, Damian Attending Unavailable Burr, Damian Referring Unavailable Burr, Damian Primary Care Unavailable Connor Mcclendon Attending Unavailable Burr, Damian Referring Unavailable Burr, Damian Primary Care Unavailable Connor Mcclendon Attending Unavailable Connor Mcclendon Referring Unavailable Burr, Damian Primary Care Unavailable Gunner Ball Attending Unavailable Burr, Damian Referring Unavailable Burr, Damian Primary Care Unavailable Gunner Ball Attending Unavailable Gunner Ball Referring Unavailable Burr, Damian Primary Care Unavailable Thanh Arevalo Attending Unavailable Burr, Damian Primary Care Unavailable Mickey Thanh Referring Unavailable Burr, Damian Primary Care Unavailable Deon Moore Attending Unavailable Gunner Ball Attending Unavailable Gunner Ball Referring Unavailable Burr, Damian Primary Care Unavailable Gunner Ball Attending Unavailable Gunner Ball Referring Unavailable Burr, Damian Primary Care Unavailable Gunner Ball Consulting Unavailable Gunner Ball Attending Unavailable Gunner Ball Referring Unavailable Burr, Damian Primary Care Unavailable Gunner Ball Consulting Unavailable Gunner Ball Attending Unavailable Burr, Damian Referring Unavailable Burr, Damian Primary Care Unavailable Gunner Ball Attending Unavailable Burr, Damian Referring Unavailable Burr, Damian Primary Care Unavailable Arcelia August Attending Unavailable Burr, Damian Referring Unavailable Burr, Damian Attending Unavailable Burr, Damian Primary Care Unavailable Nayan, Zackery Attending Unavailable Nayan, Zackery Referring Unavailable Burr, Damian Primary Care Unavailable Nayan, Zackery Attending Unavailable Nayan, Zackery Referring Unavailable Burr, Damian Primary Care Unavailable Gunner Ball Attending Unavailable Burr, Damian Referring Unavailable Jerson Kendrick Attending Unavailable Nayan, Zackeyr Referring Unavailable PROBLEMS PROBLEMS DATE TYPE CONDITION / CODE ATTENDING STATUS SOURCE 03/11/2018 Unknown R00.1 - Bradycardia, Kendrick Jerson Active [place] unspecified / Community R00.1(ICD-10) Hospital Repository 12/05/2017 Unknown G89.18 - Other acute Gunner Ball Active [place] post[facility]cedural pain [facility] / G89.18(ICD-10) Hospital Repository 10/23/2017 Unknown L60.8 - Other nail Gunner Ball Active [place] disorders / Community L60.8(ICD-10) Hospital Repository 09/24/2017 Unknown M25.561 - Pain in Connor Mcclendon Active [place] right knee / Community M25.561(ICD-10) Hospital Repository 09/24/2017 Unknown M25.461 - Effusion, Connor Mcclendon Active [place] right knee / Community M25.461(ICD-10) Hospital Repository 10/01/2017 Unknown M23.91 - Unspecified Connor Mcclendon Active [place] internal derangement [facility] of right knee / Hospital M23.91(ICD-10) Repository PROCEDURES PROCEDURES No Procedure Records FoundRESULTS RESULTS PLASTIC SURGERY Observed: 03/20/2018 Status: F Source: [place] VISIT REPORT 6:42 PM [facility] REPOSITORY [facility] [address] [place] [address] OFFICE VISIT Date of Service: 03/11/18 MR#: [id number] Acct: [id number] Name: CUAUHTEMOC FUCHS Rep #: [id number] : 1950 Provider: Gunner Ball MD Age/Sex: 67/M Location: [facility] Status: Signed Intake Vital Signs03/11/18 Height 5 ft 9 in 03/11/18 Weight: 184 lb 4 oz Intake Visit Reasons: postop surgery 12/02/17 Surg Nurse Required: No Accompanied by: None Is patient in pain?: No Allergies morphine Adverse Reaction (Verified 03/11/18 11:08) Nausea Medications Aspirin [Adult Low Dose Aspirin EC] 81 mg PO DAILY 03/15/15 [History Confirmed 12/02/17] Doxazosin Mesylate [Cardura] 1 mg PO QHS 03/15/15 [History Confirmed 12/02/17] Lisinopril [Zestril] 20 mg PO QHS 03/15/15 [History Confirmed 12/02/17] metoprolol succinate ER 25 mg tablet,extended release 24 hr 12.5 mg PO QHS 04/30/17 [History Confirmed 12/02/17] Cefadroxil [Duricef] 500 mg PO BID #10 cap 12/02/17 [Rx] Lactobacillus Acidophilus/Fos [Acidophilus Probiotic Tablet] 1 ea PO BID #10 tab 12/02/17 [Rx] Oxycodone HCl/Acetaminophen [Percocet 5/325] 1 - 2 tab PO 4X/DAY PRN PRN 4 Days #30 tab 12/02/17 [Rx] PFSH Medical History Cataracts, bilateral (Acute) Hearing problem (Acute) Heart murmur (Acute) Hypertension (Chronic) Surgical History H/O lateral meniscus repair of right knee (Acute) History of cataract extraction (Acute) History of gynecomastia (Acute) History of hydrocelectomy (Acute) History of inguinal herniorrhaphy (Acute) History of shoulder surgery (Acute) History of tonsillectomy and adenoidectomy (Acute) S/P colonoscopy (Acute) Cataract extraction status (Inactive) Gynecomastia (Inactive) H/O hernia repair (Inactive) History of tonsillectomy (Inactive) S/P right knee arthroscopy (Inactive) S/P shoulder surgery (Inactive) Family History Father Diabetes Heart disease Hypertension CVA (cerebral vascular accident) Mother Hypertension Cancer Alzheimer's dementia Anesthesia complication Breast cancer Social History Smoking Status: Never smoker alcohol intake: never substance use type: does not use additional social history: DOES USE ASPIRIN DOES USE IBUPROFEN HPI postop surgery 12/02/17: Details: Postop visit from his surgery on 12/02/17 where he underwent excision 1 cm mucous cyst left long finger on the radial aspect at the DIP joint. He comes in today with less some discomfort in his nail. He states his previous tingling has resolved. He does ok at work. He has noticed that right where the nail is the most sensitive, it feels thin. He has been wearing his extension splint at night. In the morning, the finger is straight. After taking the splint off, about an hour later, he has noticed a slight extension lag of about [address] stays that way the rest of the day. On exam, his incision is healed. Swelling has resolved. He states the finger doesn't feel tight anymore. He has good flexion. He can make a fist and has good palliative care specialist strength. He has good range of motion of his left hand. There is a slight extension lag at the DIP joint left long finger of about 5 degrees. Less than at his last visit. He states he has been wearing the extension splint at night and he has noticed a difference. There is proximal nail growth and it appears smoother with less grooving at this time. On the proximal radial aspect of the nail is some evidence of a thinner nail. This is where the most discomfort is located. The nail should toughen with time. The eponychial fold is slightly deformed from scarring. It is not bothersome to him at this time. He will continue the extension splint to keep the DIP joint extended which he will wear at night and also wear the extension splint on an as needed basis. Pathology showed the lesion was a fibrous walled cyst fragments consistent with mucous cyst, fragments of hyaline cartilage and bone with mild reactive change. No carcinoma was seen. Encouraged range of motion exercises to minimize stiffness. Massage incision with skin lotion daily to help with lymphatic drainage and to minimize swelling. If there is persistent pain in the nail bed complex, he may need complete removal of the nail complex and then reconstruct with a skin graft or a skin flap. The skin flap may require two stages. Follow up on an as needed basis if symptomatic. It should resolve with time. Assessment AND Plan Problems 1. Mucous cyst of digit of left hand M67.442 2. 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 03/14/18 182 <Electronically signed by Gunner Ball MD> Date Gunner Ball MD 03/20/18 1842<Electronically signed by Arcelia RODRIGUEZC> Cosigner Signature: Date (if applicable) Arcelia AugustC CC: 12 LEAD ELECTROCARDIOGRAM Observed: 03/06/2018 Status: F Source: [place] 9:15 AM [facility] REPOSITORY [facility] Cardiovascular Services [address] [place] [address] 12 Lead EKG 02/25/18 1115 MR#: [id number] Acct: [id number] Name: CUAUHTEMOC FUCHS Rep #: [id number] : 1950 67 From: Jerson Kendrick MD Attending Dr: Zackery Spicer MD Status: REG CLI Ordering Dr: Zackery Spicer MD Date: 02/25/18 Location: LAB Sex: M C Admitted: Test Reason : PRE-OP Blood Pressure : / mmHG Vent. Rate : 055 BPM Atrial Rate : 055 BPM P-R Int : 156 ms QRS Dur : 086 ms QT Int : 382 ms P-R-T Axes : 006 000 -07 degrees QTc Int : 365 ms Sinus bradycardia Otherwise normal ECG Confirmed by JERSON KENDRICK ([id number]), manuscript editor LUISA SOLIS ([id number]) on 02/25/2018 2:35:54 PM Referred By: Zackery Spicer Confirmed By:JERSON KENDRICK 02/25/18 1435 Date Jerson Kendrick MD CC: Damian Burr MD; Zackery Spicer MD Signed LESION (CHOOSE SITE) Observed: 03/02/2018 Status: F Source: [place] 11:45 AM [facility] REPOSITORY Patient: CUAUHTEMOC FUCHS : 1950 (67/M) Acct Num: [id number] Phys: Zackery Spicer MD Unit Num: [id number] Loc: [facility]SPEC Specimen: [id number] Received: 03/02/18 - 1609 Spec Type: Lesion TISSUES 1 TISSUES: A. Skin of external ear, NOS B. Skin of external ear, NOS COMMENT A AND B. There is no evidence of malignancy. GROSS DESCRIPTION A - Received in fixative is one container labeled with the patient's name and designated right external ear neoplasm. The specimen consists of a piece of fatima-white skin ellipse measuring 2.3 x 0.9 cm and up to 0.2 cm in thickness. There is a brownish, raised lesion on the surface measuring 2 x 0.7 cm. The specimen is inked and submitted entirely in one cassette. It will be serially sectioned at the time of embedding. B - Received in fixative is one container labeled with the patient's name and designated additional tissue. The specimen consists of a piece of skin with underlying tissue and cartilage measuring 2.5 x 0.5 cm and up to 0.4 cm in thickness. The specimen is inked and submitted entirely in one cassette. It will be serially sectioned at the time of embedding. / SJ:kade 03/03/18 TC:5 CPT: 24685 x2 HEADER OPERATION: Excision right ear mass PRE-OP DIAGNOSIS: Benign neoplasm, right ear TISSUE SUBMITTED: A. Right external ear neoplasm, B. Additional tissue MICROSCOPIC DESCRIPTION Slides are reviewed. MICROSCOPIC DIAGNOSIS A. Right external ear neoplasm, biopsy: Seborrheic keratosis, inflamed. Solar elastosis. See comment. B. Right external ear lesion, additional tissue, biopsy: Skin and soft tissue with solar elastosis. Fragments of hyaline cartilage with no pathologic change. See comment. AM:kade 03/04/18 Signed Ted Huff 03/04/18 <signature on file> Performed By: #### PLES #### [facility] [address] [place], [place], [id number] CBC-COMPLETE BLOOD CNT Collected: 02/25/2018 Status: F Source: [place] NO DIFF 10:57 AM [facility] REPOSITORY TYPE CODE TESTS RESULT OUT OF RANGE REFERENCE UNITS LAB L100.1000 4.4-11.0 K/mm3 Normal WBC 6.2 LAB L100.1200 4.6-6.2 M/mm3 Normal RBC 5.08 LAB L100.1300 13.0-16.5 g/dl Normal HGB 15.7 LAB L100.1400 40-54 % Normal HCT 47.2 LAB L100.1500 80-94 fL Normal MCV 92.9 LAB L100.1600 27.0-32.0 pg Normal MCH 30.9 LAB L100.1700 32-36 g/gl Normal MCHC 33.3 LAB L100.1810 11.6-14.6 % Normal RDW CV 13.0 LAB L100.1820 35.1-43.9 fl Normal RDW SD 43.0 LAB L100.1900 150-450 K/mm3 Normal PLT 163 LAB L100.2000 6.2-12.0 fl Normal MPV 10.8 Performed By: #### L100.0500 #### [facility] [place], [address] BASIC METABOLIC Collected: 02/25/2018 Status: F Source: [place] PROFILE (BMP) 10:57 AM [facility] REPOSITORY TYPE CODE TESTS RESULT OUT OF RANGE REFERENCE UNITS LAB L501.0100 74-106 mg/dL Normal GLU 84 Result Comment: Please note revised GLUCOSE reference range effective 2017. LAB L501.1000 7-18 mg/dL Normal BUN 15 LAB L501.1100 0.70-1.30 mg/dL Normal CREAT,SERUM 1.10 Result Comment: The validity of the calculated GFR AND GFRAA in patients over 70 years has not been determined. Clinical correlation is essential. LAB L501.1110 >60 mL/min Normal EST GFR 71 Result Comment: Non- GFR Calc LAB L501.1115 >60 mL/min Normal EST GFR - AA 86 Result Comment: GFR Calc LAB L501.1300 10-20 RATIO Normal BUN/CRE 13.6 LAB L501.2200 8.5-10.1 mg/dL CA Normal 9.0 LAB L501.5300 136-145 mmol/L NA Normal 141 LAB L501.5600 3.5-5.1 mmol/L K Normal 4.6 LAB L501.5900 98-107 mmol/L CL Normal 106 LAB L501.6100 21.0-32.0 mmol/L Normal CO2 28.0 LAB L501.6200 5-15 Normal GAP 7 Performed By: #### L500.2500 #### [facility] [address], [address] PLASTIC SURGERY Observed: 01/15/2018 Status: F Source: [place] VISIT REPORT 3:54 PM [facility] REPOSITORY [facility] [address] [place] [address] OFFICE VISIT Date of Service: 01/08/18 MR#: [id number] Acct: [id number] Name: CUAUHTEMOC FUCHS Roni Rep #: [id number] : 1950 Provider: JUAN August Age/Sex: 67/M Location: [facility] Status: Signed Intake Intake Visit Reasons: postop surgery 12/02/17 Allergies morphine Adverse Reaction (Verified 12/10/17 08:46) Nausea Medications Aspirin [Adult Low Dose Aspirin EC] 81 mg PO DAILY 03/15/15 [History Confirmed 12/02/17] Doxazosin Mesylate [Cardura] 1 mg PO QHS 03/15/15 [History Confirmed 12/02/17] Lisinopril [Zestril] 20 mg PO QHS 03/15/15 [History Confirmed 12/02/17] metoprolol succinate ER 25 mg tablet,extended release 24 hr 12.5 mg PO QHS 04/30/17 [History Confirmed 12/02/17] Cefadroxil [Duricef] 500 mg PO BID #10 cap 12/02/17 [Rx] Lactobacillus Acidophilus/Fos [Acidophilus Probiotic Tablet] 1 ea PO BID #10 tab 12/02/17 [Rx] Oxycodone HCl/Acetaminophen [Percocet 5/325] 1 - 2 tab PO 4X/DAY PRN PRN 4 Days #30 tab 12/02/17 [Rx] PFSH Medical History Cataracts, bilateral (Acute) Hearing problem (Acute) Heart murmur (Acute) Hypertension (Chronic) Surgical History H/O lateral meniscus repair of right knee (Acute) History of cataract extraction (Acute) History of gynecomastia (Acute) History of hydrocelectomy (Acute) History of inguinal herniorrhaphy (Acute) History of shoulder surgery (Acute) History of tonsillectomy and adenoidectomy (Acute) S/P colonoscopy (Acute) Cataract extraction status (Inactive) Gynecomastia (Inactive) H/O hernia repair (Inactive) History of tonsillectomy (Inactive) S/P right knee arthroscopy (Inactive) S/P shoulder surgery (Inactive) Family History Father Diabetes Heart disease Hypertension CVA (cerebral vascular accident) Mother Hypertension Cancer Alzheimer's dementia Anesthesia complication Breast cancer Social History Smoking Status: Never smoker alcohol intake: never substance use type: does not use additional social history: DOES USE ASPIRIN DOES USE IBUPROFEN HPI postop surgery 12/02/17: Details: Postop visit from his recent surgery on 12/02/17 where he underwent excision 1 cm mucous cyst left long finger on the radial aspect at the DIP joint. He comes in today with less tingling of left long finger. He has concerns that he saw some clearish drainage from the eponychial fold. He denies fever. He has been working a lot with his hands. Sometimes he will wear gloves at work. On exam, his incision is healed. Swelling has resolved. He has good flexion. He can make a fist and has good palliative care specialist strength. There is a slight extension lag at the DIP joint left long finger. Less than at his last visit. He states he has been wearing the extension splint at night and he has noticed a difference. During the day he can also wear it but may have to wait until he comes home from work. There is proximal nail growth and it appears smoother without evidence of grooving at this time. Reassured the patient that the clearish drainage was probably residual swelling from the surgery. The eponychial fold is an area of weakness that can allow some post-op edema to leak through. He will continue the extension splint to keep the DIP joint extended which he will wear at night. Pathology showed the lesion was a fibrous walled cyst fragments consistent with mucous cyst, fragments of hyaline cartilage and bone with mild reactive change. No carcinoma was seen. Encouraged range of motion exercises to minimize stiffness. Massage incision with skin lotion daily to help with lymphatic drainage and to minimize swelling. Follow up on an as needed basis if symptomatic from extension lag. It should resolve with time. Also if there is continued clearish drainage from his nail fold, then return for further evaluation. I anticipate it will be a self-limiting process. Assessment AND Plan Problems 1. Mucous cyst of digit of left hand M67.442 2. 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, [address] CBC W/DIFF, AUTOMATED Collected: 01/14/2018 Status: F Source: [place] 10:54 AM [facility] REPOSITORY TYPE CODE TESTS RESULT OUT OF RANGE REFERENCE UNITS LAB L100.1000 4.4-11.0 K/mm3 Normal WBC 6.3 LAB L100.1200 4.6-6.2 M/mm3 Normal RBC 4.88 LAB L100.1300 13.0-16.5 g/dl Normal HGB 15.2 LAB L100.1400 40-54 % Normal HCT 45.6 LAB L100.1500 80-94 fL Normal MCV 93.4 LAB L100.1600 27.0-32.0 pg Normal MCH 31.1 LAB L100.1700 32-36 g/gl Normal MCHC 33.3 LAB L100.1810 11.6-14.6 % Normal RDW CV 12.9 LAB L100.1820 35.1-43.9 fl Normal RDW SD 43.5 LAB L100.1900 150-450 K/mm3 Normal PLT 154 LAB L100.2000 6.2-12.0 fl Normal MPV 11.0 LAB L100.2100 47-70 % Normal NEUT% 69.8 LAB L100.2200 19-41 % Normal LY% 21.9 LAB L100.2300 0-10 % Normal MONO% 6.4 LAB L100.2400 0-5 % Normal EO% 1.4 LAB L100.2500 0-1 % Normal BASO% 0.3 LAB L100.2550 0.0-0.9 % Normal IM GRAN % 0.200 Result Comment: IG% - Immature Granulocytes (promyelocytes, myelocytes and metamyelocytes) > 1% indicates that a LEFT SHIFT is Present. LAB L100.2620 2.0-7.7 X10 3/uL Normal Absolute Neut 4.4 LAB L100.2720 0.83-4.51 X10 3/ul Normal Absolute Lymph 1.37 Performed By: #### L101.9900, L100.0100 #### [facility] [address] [place], [place], [address] COMPREHENSIVE METABOLIC Collected: 01/14/2018 Status: F Source: [facility] 10:54 AM [facility] REPOSITORY TYPE CODE TESTS RESULT OUT OF RANGE REFERENCE UNITS LAB L501.0100 74-106 mg/dL High GLU 110 Result Comment: Fasting Glucose result from 100 to 125 mg/dL suggests IMPAIRED HOMEOSTASIS per A.D.A. criteria. Please note revised GLUCOSE reference range effective 2017. LAB L501.1000 7-18 mg/dL Normal BUN 16 LAB L501.1100 0.70-1.30 mg/dL Normal CREAT,SERUM 1.02 Result Comment: The validity of the calculated GFR AND GFRAA in patients over 70 years has not been determined. Clinical correlation is essential. LAB L501.1110 >60 mL/min Normal EST GFR 78 Result Comment: Non- GFR Calc LAB L501.1115 >60 mL/min Normal EST GFR - AA 94 Result Comment: GFR Calc LAB L501.1300 10-20 RATIO Normal BUN/CRE 15.7 LAB L501.1500 6.4-8.2 g/dL T Normal PROT 7.0 LAB L501.1800 3.2-5.0 g/dL Normal ALB 3.7 LAB L501.1950 2.2-4.2 g/dL Normal GLOB 3.3 LAB L501.2000 0.9-2.4 RATIO Normal A/G 1.1 LAB L501.2200 8.5-10.1 mg/dL CA Normal 8.7 LAB L501.4100 15-37 U/L Normal AST 15 LAB L501.4305 45-117 U/L Normal ALK P 89 LAB L501.4405 16-61 U/L Normal ALT 28 LAB L501.4600 0.20-1.00 mg/dL T Normal BILI 0.80 LAB L501.5300 136-145 mmol/L NA Normal 139 LAB L501.5600 3.5-5.1 mmol/L K Normal 4.1 LAB L501.5900 98-107 mmol/L CL Normal 107 LAB L501.6100 21.0-32.0 mmol/L Normal CO2 26.0 LAB L501.6200 5-15 Normal GAP 6 Performed By: #### L500.4050, L501.6710 #### [facility] [address] [place], [place], [address] CRP Collected: 01/14/2018 Status: F Source: [place] 10:54 AM [facility] REPOSITORY TYPE CODE TESTS RESULT OUT OF RANGE REFERENCE UNITS LAB L501.6710 0.0-3.0 mg/L Normal < 2.90 C-REACTIVE PROT Result Comment: C-Reactive Protein (CRP) provides useful information for the diagnosis, therapy and monitoring of inflammatory processes and associated diseases. For the evaluation of Relative Risk for Cardiovascular Disease, a High Sensitivity CRP (HSCRP) should be ordered. Performed By: #### L500.4050, L501.6710 #### [facility] [address] [place], [address] PLASTIC SURGERY Observed: 12/24/2017 Status: F Source: [place] VISIT REPORT 10:39 AM [facility] REPOSITORY [facility] [address] [place] [address] OFFICE VISIT Date of Service: 12/17/17 MR#: [id number] Acct: [id number] Name: CUAUHTEMOC FUCHS Rep #: [id number] : 1950 Provider: Gunner Ball MD Age/Sex: 67/M Location: [facility] Status: Signed Intake Vital Signs12/17/17 Weight: 179 lb 12/17/17 Blood Pressure 130/81 12/17/17 Blood Pressure Location Lt brachial 12/17/17 Blood Pressure Position Sitting Intake Visit Reasons: post op surgery 12/02/17 Surg Nurse Required: No Accompanied by: Is patient in pain?: Yes (finger) Pain scale (1-10): 3 Allergies morphine Adverse Reaction (Verified 12/10/17 08:46) Nausea Medications Aspirin [Adult Low Dose Aspirin EC] 81 mg PO DAILY 03/15/15 [History Confirmed 12/02/17] Doxazosin Mesylate [Cardura] 1 mg PO QHS 03/15/15 [History Confirmed 12/02/17] Lisinopril [Zestril] 20 mg PO QHS 03/15/15 [History Confirmed 12/02/17] metoprolol succinate ER 25 mg tablet,extended release 24 hr 12.5 mg PO QHS 04/30/17 [History Confirmed 12/02/17] Cefadroxil [Duricef] 500 mg PO BID #10 cap 12/02/17 [Rx] Lactobacillus Acidophilus/Fos [Acidophilus Probiotic Tablet] 1 ea PO BID #10 tab 12/02/17 [Rx] Oxycodone HCl/Acetaminophen [Percocet 5/325] 1 - 2 tab PO 4X/DAY PRN PRN 4 Days #30 tab 12/02/17 [Rx] PFSH Medical History Cataracts, bilateral (Acute) Hearing problem (Acute) Heart murmur (Acute) Hypertension (Chronic) Surgical History H/O lateral meniscus repair of right knee (Acute) History of cataract extraction (Acute) History of gynecomastia (Acute) History of hydrocelectomy (Acute) History of inguinal herniorrhaphy (Acute) History of shoulder surgery (Acute) History of tonsillectomy and adenoidectomy (Acute) S/P colonoscopy (Acute) Cataract extraction status (Inactive) Gynecomastia (Inactive) H/O hernia repair (Inactive) History of tonsillectomy (Inactive) S/P right knee arthroscopy (Inactive) S/P shoulder surgery (Inactive) Family History Father Diabetes Heart disease Hypertension CVA (cerebral vascular accident) Mother Hypertension Cancer Alzheimer's dementia Anesthesia complication Breast cancer Social History Smoking Status: Never smoker alcohol intake: never substance use type: does not use additional social history: DOES USE ASPIRIN DOES USE IBUPROFEN HPI post op surgery 12/02/17: Details: Postop visit from his recent surgery on 12/02/17 where he underwent excision 1 cm mucous cyst left long finger on the radial aspect at the DIP joint. He comes in today with less tingling of left long finger. His incision is healed. Swelling has resolved. Sutures were removed today without difficulty. He states his finger feels tight and difficult to move. There was buildup of skin from the surgery and the compression dressing. The skin was removed. There was good skin underneath. The skin underneath was soft, and it was easier to move his finger once the extra skin was removed. It also didn't feel tight anymore. He has good flexion. There is a slight extension lag at the DIP joint left long finger. I placed an extension splint to keep the DIP joint extended which he will wear at night. Pathology showed the lesion was a fibrous walled cyst fragments consistent with mucous cyst, fragments of hyaline cartilage and bone with mild reactive change. No carcinoma was seen. Encouraged range of motion exercises to minimize stiffness. He can get his left hand wet in the shower. Encouraged daily massage to help with lymphatic drainage and to minimize swelling. Follow up as needed if symptomatic from extension lag. It should resolve with time. Assessment AND Plan Problems 1. Mucous cyst of digit of left hand M67.442 2. 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 12/23/17 2223 <Electronically signed by Gunner Ball MD> Date Gunner Ball MD 12/24/17 1039<Electronically signed by Arcelia RODRIGUEZC> Cosigner Signature: Date (if applicable) Arcelia August CC: PLASTIC SURGERY Observed: 12/16/2017 Status: F Source: [place] VISIT REPORT 2:29 PM [facility] REPOSITORY [facility] [address] [place] [address] OFFICE VISIT Date of Service: 12/10/17 MR#: [id number] Acct: [id number] Name: SHILACUAUHTEMOC L Rep #: [id number] : 1950 Provider: Gunner Ball MD Age/Sex: 67/M Location: [facility] Status: Signed Intake Vital Signs12/10/17 Blood Pressure 144/86 12/10/17 Blood Pressure Location Lt brachial 12/10/17 Blood Pressure Position Sitting 12/10/17 Respiratory Rate 18 Intake Visit Reasons: post op surgery 12/02/17 Surg Nurse Required: No Accompanied by: None Is patient in pain?: Yes (LEFT HAND LONG FINGER SHARP AND BURNING NOT ALL OF THE TIME OFF AND ON) Pain scale (1-10): 2 Allergies morphine Adverse Reaction (Verified 12/10/17 08:46) Nausea Medications Aspirin [Adult Low Dose Aspirin EC] 81 mg PO DAILY 03/15/15 [History Confirmed 12/02/17] Doxazosin Mesylate [Cardura] 1 mg PO QHS 03/15/15 [History Confirmed 12/02/17] Lisinopril [Zestril] 20 mg PO QHS 03/15/15 [History Confirmed 12/02/17] metoprolol succinate ER 25 mg tablet,extended release 24 hr 12.5 mg PO QHS 04/30/17 [History Confirmed 12/02/17] Cefadroxil [Duricef] 500 mg PO BID #10 cap 12/02/17 [Rx] Lactobacillus Acidophilus/Fos [Acidophilus Probiotic Tablet] 1 ea PO BID #10 tab 12/02/17 [Rx] Oxycodone HCl/Acetaminophen [Percocet 5/325] 1 - 2 tab PO 4X/DAY PRN PRN 4 Days #30 tab 12/02/17 [Rx] PFSH Medical History Cataracts, bilateral (Acute) Hearing problem (Acute) Heart murmur (Acute) Hypertension (Chronic) Surgical History H/O lateral meniscus repair of right knee (Acute) History of cataract extraction (Acute) History of gynecomastia (Acute) History of hydrocelectomy (Acute) History of inguinal herniorrhaphy (Acute) History of shoulder surgery (Acute) History of tonsillectomy and adenoidectomy (Acute) S/P colonoscopy (Acute) Cataract extraction status (Inactive) Gynecomastia (Inactive) H/O hernia repair (Inactive) History of tonsillectomy (Inactive) S/P right knee arthroscopy (Inactive) S/P shoulder surgery (Inactive) Family History Father Diabetes Heart disease Hypertension CVA (cerebral vascular accident) Mother Hypertension Cancer Alzheimer's dementia Anesthesia complication Breast cancer Social History Smoking Status: Never smoker alcohol intake: never substance use type: does not use additional social history: DOES USE ASPIRIN DOES USE IBUPROFEN HPI post op surgery 12/02/17: Details: Postop visit from his recent surgery on 12/02/17 where he underwent excision 1 cm mucous cyst left long finger on the radial aspect at the DIP joint. He comes into day with complaint of numbness and tingling of left long finger. He states his pain has been controlled with Tylenol. His incision is dry and intact. Mild swelling seen. Discussed Pathology results with the patient. The lesion was a fibrous walled cyst fragments consistent with mucous cyst, fragments of hyaline cartilage and bone with mild reactive change. No carcinoma was seen. Encouraged range of motion exercises to minimize stiffness. He can get his incision wet when showering or washing hands. Apply antibiotic ointment daily to the suture line. Encouraged daily massage to help with lymphatic drainage and to minimize swelling. Follow up one week to have some of his sutures removed. Assessment AND Plan Problems 1. Mucous cyst of digit of left hand M67.442 2. 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 12/13/17 1854 <Electronically signed by Gunner Ball MD> Date Gunner Ball MD 12/16/17 1429<Electronically signed by Arcelia MARTINEZ> Cosigner Signature: Date (if applicable) Arcelia August CC: OPERATIVE REPORT Observed: 12/05/2017 Status: F Source: [place] 2:30 PM [facility] REPOSITORY [facility] Medical Records Department [address] [place] [address] Operative Report 12/02/17 1723 MR#: [id number] Acct: [id number] Name: CUAUHTEMOC FUCHS Rep #: [id number] : 1950 67 From: Gunner Ball MD PCP: Damian Burr MD Status: [facility] [place] [facility] [place] of Operation Date of Procedure: 12/02/17 Pre-Operative Diagnosis: 1. 1 cm mucous cyst left long finger on the radial aspect at the DIP joint. 2. Nail grooving. Post-Operative Diagnosis: Same. Surgery/Procedure Performed:: Excision 1 cm mucous cyst left long finger on the radial aspect at the DIP joint. Description of Surgical Findings:: 67 year old man presents with a soft tissue mass on dorsum left long finger on the radial aspect at the DIP joint. It is clinically consistent with a mucous cyst. It has enlarged over the last several months. He denies any trauma. He denies any fever. He denies any numbness. He has also noted some nail grooving over the last couple of months. He has noted occasional small amounts of drainage from the finger nail. There has been no odor. He states it doesn't affect his activities of daily living. He is right hand dominant. Patient was informed of the risks and complications of the procedure including alternatives to surgery. These were discussed with the patient personally. Patient voices understanding and wishes to proceed. Some of the risks and complications were included in a form from the [employer]. Some of the risks and complications that were discussed included but were not inclusive of failure to diagnose including symptom relief, pain, infection, numbness, stiffness, loss of digit, RSD (CRPS), need for further surgery, contracture, nail deformity and wound healing problems. Total tourniquet time - 50 minutes. stage hand: None Type of Anesthesia:: Local MAC - xylocaine with epinephrine digital metacarpal block and IV sedation. Specimen's removed: Mucous cyst and bony spur left long finger to Pathology. Drains: None. Estimated Blood Loss (mL): 2 ml. Description of Procedure: Patient was taken to OR in supine position and was given IV sedation. The left long finger was prepped and draped in the usual fashion. SCD's were placed for DVT prophylaxis. Perioperative antibiotics were given intravenously. The base of the left long finger at the metacarpal level was infiltrated with xylocaine and epinephrine. After waiting 5 minutes for the anesthetic to take effect, I placed a tourniquet at the base of the left long finger. I made a horizontal incision just proximal to the eponychial fold and extended the incision vertically on the radial aspect. I dissected down to the extensor tendon. The mucous cyst was seen. It was located radial to the extensor tendon. It was excised down to the bone. There was some osteophytic spurs at the level of the DIP joint and they were excised with rongeurs to minimize recurrence. Further exploration showed there was no cyst extension underneath the tendon and there was no cyst seen on the ulnar aspect of the tendon. There was some capsular tissue extending to the eponychial fold which is where there was some drainage of the cyst preoperatively. Because the drainage came out of the eponychial fold, there was no pressure on the distal skin. Therefore no skin needed to be excised. So I should be able to close the wound primarily without needing a dorsal advancement skin flap. I excised this capsular tissue to minimize recurrence. The wound was irrigated with saline. I closed the wound in multiple layers with 5-0 Monocryl interrupted sutures for the deep dermis and subcutaneous tissue. The skin was approximated with 5-0 Prolene simple interrupted sutures. The tourniquet was released after 70 minutes. Hemostasis was obtained with gentle pressure and elevation. Antibiotic ointment was applied to the suture line followed by xeroform gauze and 2x2 gauze and 2 inch noemy wrap. Patient tolerated the procedure well and was sent to PACU in satisfactory condition. Patient will be sent home on antibiotics and pain medication. Patient will followup in a week for a wound check and for discussion of the pathology report. The sutures will be removed in two weeks. Will encourage range of motion exercises for the proximal finger. Can start bending the DIP joint after the sutures are removed. The tendon will have some swelling from the dissection, so it is a little weaker than usual. Will rest the distal tendon for a couple of weeks until the sutures are removed, and then encourage range of motion of the DIP joint as well. Any stiffness issues will necessitate evaluation by OT for range of motion exercises, strengthening, and edema management. Grafts/Implants Used: None. - Complications None. - Admit VTE Documentation VTE Present on Admission: No VTE Mechan Device Prophylaxis: SCD's VTE Pharm Prophylaxis ordered?: No Code Visit Surgery Charges CPT - 97537 ICD-10 - M67.442, L60.8 12/05/17 1430 <Electronically signed by Gunner Ball MD> Date Gunner Ball MD CC: Damian Burr MD; Gunner Ball MD Signed HISTORY AND PHYSICAL Observed: 12/03/2017 Status: F Source: [place] EXAM 11:44 PM [facility] REPOSITORY [facility] Medical Records Department [address] [place] [address] History and Physical 12/01/17 2341 MR#: [id number] Acct: [id number] Name: CUAUHTEMOC FUCHS Rep #: [id number] : 1950 67 From: Gunner Ball MD PCP: Damian Burr MD Status[place] [facility] [place] [facility] [place] and Physical Date of Admission: 12/02/17 HISTORY OF PRESENT ILLNESS 67 year old man presents with a soft tissue mass on dorsum left long finger on the radial aspect at the DIP joint. It is clinically consistent with a mucous cyst. It has enlarged over the last several months. He denies any trauma. He denies any fever. He denies any numbness. He has also noted some nail grooving over the last couple of months. He has noted occasional small amounts of drainage from the finger nail. There has been no odor. He states it doesn't affect his activities of daily living. He is right hand dominant. Preop he had an Xray which was normal. PAST MEDICAL HISTORY Cataracts, bilateral Hearing problem Heart murmur Hypertension PAST SURGICAL HISTORY lateral meniscus repair of right knee cataract extraction gynecomastia surgery hydrocelectomy inguinal herniorrhaphy shoulder surgery tonsillectomy and adenoidectomy colonoscopy right knee arthroscopy right total knee surgery ALLERGIES morphine MEDICATIONS Aspirin [Adult Low Dose Aspirin EC] 81 mg PO DAILY 03/15/15 [History Confirmed 10/23/17] Doxazosin Mesylate [Cardura] 1 mg PO QHS 03/15/15 [History Confirmed 10/23/17] Lisinopril [Zestril] 20 mg PO QHS 03/15/15 [History Confirmed 10/23/17] metoprolol succinate ER 25 mg tablet,extended release 24 hr 12.5 mg PO QHS 04/30/17 [History Confirmed 10/23/17] FAMILY HISTORY Father - Diabetes, Heart disease, Hypertension, CVA (cerebral vascular accident) Mother - Hypertension, Cancer, Alzheimer's dementia, Anesthesia complication, Breast cancer SOCIAL HISTORY Smoking Status: Never smoker alcohol intake: never substance use type: does not use REVIEW OF SYSTEMS General - Denies fever, fatigue, and weight loss. Eyes - Denies cataracts and glaucoma. ENT - Denies nasal congestion and sore throat. Endocrine - Denies excessive thirst and urination. Skin - Denies suspicious lesions and skin cancer. Musculoskeletal - Denies joint pain, joint stiffness, weakness of muscles and joints, back pain, and arthritis. On the dorsum left long finger on the radial aspect at the DIP joint is a mucous cyst with nail grooving. Neuro - Denies headaches. Cardiovascular - Denies chest pain, fatigue, and shortness of breath with exertion. Psych - Denies anxiety and depression. Respiratory - Denies chronic cough and shortness of breath. Gastrointestinal - Denies nausea, vomiting, diarrhea, and constipation. Hematologic - Denies abnormal bruising and bleeding. Genitourinary - Denies hematuria and urinary frequency. PHYSICAL EXAMINATION General - Alert and Oriented HEENT - PERRL. EOMI. Throat is clear. Neck - Supple and nontender. No cervical adenopathy. Lungs - Clear to auscultation. Heart - Regular rate and rhythm. Abdomen - Soft and nondistended. Extremities - FROM. No axillary adenopathy. Radial pulses are palpable. On the dorsum left long finger on the radial aspect at the DIP joint is a soft tissue mass consistent with a mucous cyst. Measures 1 cm. Overlying skin is a little thin. No evidence of infection. There is nail grooving. Flexion and extension are intact. No sensory deficits. Fingers are warm with good capillary refill. No axillary adenopathy. Patient is right hand dominant. Neuro - CN II-XII grossly intact. Psych - Normal mood and affect. ASSESSMENT 1. 1 cm mucous cyst left long finger on the radial aspect at the DIP joint. 2. Nail grooving. PLAN Patient has a soft tissue mass left long finger that is clinically consistent with a mucous cyst. He has been developing nail grooving. Recommend excision of this mass and send it to Pathology for analysis to rule out carcinoma. Will need to excise any osteophytes to minimize recurrence. Sometimes these cysts extend underneath the extensor tendon. Postoperatively may need an extension splint for a few weeks to allow the weakened tendon to strengthen. Excising this mass should take pressure off the growth center of the nail complex and improve the nail grooving. Because the overlying skin is a little thin, will probably remove it. Since the dissection extends down to the tendon and bone, a skin graft would not be adequate for wound closure. He would need a dorsal skin advancement flap for reconstruction. Preop he had an Xray which was normal. Patient was informed of the risks and complications of the procedure including alternatives to surgery. These were discussed with the patient personally. Patient voices understanding and wishes to proceed. Some of the risks and complications were included in a form from the [employer]. Some of the risks and complications that were discussed included but were not inclusive of failure to diagnose including symptom relief, pain, infection, numbness, stiffness, loss of digit, RSD (CRPS), need for further surgery, contracture, nail deformity and wound healing problems. 12/03/17 2344 <Electronically signed by Gunner Ball MD> Date Gunner Ball MD Cosigner Signature: Date (if applicable) CC: Damian Burr MD; Gunner Ball MD Signed DISCHARGE INSTRUCTION Observed: 12/02/2017 Status: F Source: [place] 9:38 AM [facility] REPOSITORY [facility] Medical Records Department [address] [place] [address] Instructions for Home/Discharge Instructions 12/02/17 0935 MR#: [id number] Acct: [id number] Name: CUAUHTEMOC FUCHS Rep #: [id number] : 1950 67 From: Gunner Ball MD PCP: Damian Burr MD Status[place] [facility] [place] will use the following diet at home:: No restrictions Discharge Activity: May not drive while taking narcotic pain medications., May Shower - place plastic bag over left hand when showering., - - keep left hand elevated. no heavy lifting. May shower in (days): 1 - place plastic bag over left hand when showering. May resume sexual activity in: No Restrictions Weight Bearing Status: Weight bearing as tolerated Lifting Restrictions: 20 lbs. Keep extremity elevated above heart level: Left Arm Call your doctor if your incision/area has: Continuous Slow Oozing, Sudden Increased Bleeding, Increased Pain/ Swelling, Increased Redness, Foul Smelling Discharge, Swelling at the incision site Call your doctor if you observe: Fever of 101 or Higher, Coldness, Increased Pain, Shortness of breath, Chest pain, Calf discomfort, Uncontrolled pain Change Dressing in (Days):: 7 - will change dressing in office. Cleanse incision/area with: - - wear plastic bag over left hand when showering. Allergies/Adverse Reactions: Allergies morphine Adverse Reaction (Verified 12/02/17 06:52) Nausea Medications to take at Discharge Aspirin [Adult Low Dose Aspirin EC] 81 mg PO DAILY 03/15/15 Doxazosin Mesylate [Cardura] 1 mg PO QHS 03/15/15 Lisinopril [Zestril] 20 mg PO QHS 03/15/15 metoprolol succinate ER 25 mg tablet,extended release 24 hr 12.5 mg PO QHS 04/30/17 Cefadroxil [Duricef] 500 mg PO BID #10 cap 12/02/17 Lactobacillus Acidophilus/Fos [Acidophilus Probiotic Tablet] 1 ea PO BID #10 tab 12/02/17 Oxycodone HCl/Acetaminophen [Percocet 5/325] 1 - 2 tab PO 4X/DAY PRN PRN 4 Days #30 tab 12/02/17 The following prescriptions were given: Oxycodone HCl/Acetaminophen [Percocet 5/325] 1 - 2 tab PO 4X/DAY PRN PRN 4 Days #30 tab PRN Reason: Pain Cefadroxil [Duricef] 500 mg PO BID #10 cap Lactobacillus Acidophilus/Fos [Acidophilus Probiotic Tablet] 1 ea PO BID #10 tab Primary Care Physician: Damian Burr MD [Primary Care Provider] - Test Results: Test results from this visit will be discussed in further detail at your follow-up appointment, if applicable. Please Follow Up With: Gunner Ball MD When: one week. call [phone] for appt. Proposed Discharge Date: 12/02/17 12/02/17 0938 <Electronically signed by Gunner Ball MD> Date Gunner Ball MD CC: Damian Burr MD CYST Observed: 12/02/2017 Status: F Source: [place] 8:00 AM [facility] REPOSITORY Patient: CUAUHTEMOC FUCHS : 1950 (67/M) Acct Num: [id number] Phys: Gunner Ball MD Unit Num: [id number] [place] [facility] [place]imen: [id number] Received: 12/02/17 - 1350 Spec Type: Cyst TISSUES TISSUES: CYST GROSS DESCRIPTION Received in fixative is one container labeled with the patient's name and designated mucous cyst left long finger. The specimen consists of multiple irregular fragments of light fatima-white soft tissue that in aggregate measure 2.5 x 1 x 0.1 cm. The specimen is totally submitted in one cassette. / AM:kade 12/02 TC:5 CPT: 53323 HEADER OPERATION: Excision mucous cyst, left long finger with skin flap PRE-OP DIAGNOSIS: Mucous cyst left long finger TISSUE SUBMITTED: Mucous cyst left long finger MICROSCOPIC DESCRIPTION Slides are reviewed. MICROSCOPIC DIAGNOSIS Mucous cyst of left long finger, biopsy: Fibrous walled cyst fragments consistent with mucous cyst. Fragments of hyaline cartilage and bone with mild reactive change. AM:kade 12/04/17 Signed [facility] 12/04/17 <signature on file> Performed By: #### PCYST #### [facility] [address] [place] [address]. [place], [place], [id number] PLASTIC SURGERY Observed: 11/26/2017 Status: F Source: [place] VISIT REPORT 2:22 PM [facility] REPOSITORY [facility] [address] [place] [address] OFFICE VISIT Date of Service: 10/23/17 MR#: [id number] Acct: [id number] Name: CUAUHTEMOC FUCHS Rep #: [id number] : 1950 Provider: Gunner Ball MD Age/Sex: 67/M Location: [facility] [place] Status: Signed Intake Vital Signs10/23/17 Height 5 ft 9 in 10/23/17 Weight: 177 lb 4 oz Intake Visit Reasons: evaluation mucous cyst left long finger Surg Nurse Required: No Accompanied by: Is patient in pain?: Yes (LEFT HAND LONG FINGER PAIN WHEN HE BUMPS OR TOUCHES IT SHARP) Pain scale (1-10): 4 Allergies morphine Adverse Reaction (Verified 11/02/17 13:51) Nausea Medications Aspirin [Adult Low Dose Aspirin EC] 81 mg PO DAILY 03/15/15 [History Confirmed 10/23/17] Doxazosin Mesylate [Cardura] 1 mg PO QHS 03/15/15 [History Confirmed 10/23/17] Lisinopril [Zestril] 20 mg PO QHS 03/15/15 [History Confirmed 10/23/17] metoprolol succinate ER 25 mg tablet,extended release 24 hr 12.5 mg PO QHS 04/30/17 [History Confirmed 10/23/17] [facility] Medical History Cataracts, bilateral (Acute) Hearing problem (Acute) Heart murmur (Acute) Hypertension (Chronic) Surgical History H/O lateral meniscus repair of right knee (Acute) History of cataract extraction (Acute) History of gynecomastia (Acute) History of hydrocelectomy (Acute) History of inguinal herniorrhaphy (Acute) History of shoulder surgery (Acute) History of tonsillectomy and adenoidectomy (Acute) S/P colonoscopy (Acute) Cataract extraction status (Inactive) Gynecomastia (Inactive) H/O hernia repair (Inactive) History of tonsillectomy (Inactive) S/P right knee arthroscopy (Inactive) S/P shoulder surgery (Inactive) Family History Father Diabetes Heart disease Hypertension CVA (cerebral vascular accident) Mother Hypertension Cancer Alzheimer's dementia Anesthesia complication Breast cancer Social History Smoking Status: Never smoker alcohol intake: never substance use type: does not use additional social history: DOES USE ASPIRIN DOES USE IBUPROFEN HPI evaluation mucous cyst left long finger: Details: HISTORY OF PRESENT ILLNESS 67 year old man presents with a soft tissue mass on dorsum left long finger on the radial aspect at the DIP joint. It is clinically consistent with a mucous cyst. It has enlarged over the last several months. He denies any trauma. He denies any fever. He denies any numbness. He has also noted some nail grooving over the last couple of months. He has noted occasional small amounts of drainage from the finger nail. There has been no odor. He states it doesn't affect his activities of daily living. He is right hand dominant. He states he is scheduled to have a right total knee procedure by Dr. Arevalo in [place] on 10/28/17. REVIEW OF SYSTEMS General - Denies fever, fatigue, and weight loss. Eyes - Denies cataracts and glaucoma. ENT - Denies nasal congestion and sore throat. Endocrine - Denies excessive thirst and urination. Skin - Denies suspicious lesions and skin cancer. Musculoskeletal - Denies joint pain, joint stiffness, weakness of muscles and joints, back pain, and arthritis. On the dorsum left long finger on the radial aspect at the DIP joint is a mucous cyst with nail grooving. Neuro - Denies headaches. Cardiovascular - Denies chest pain, fatigue, and shortness of breath with exertion. Psych - Denies anxiety and depression. Respiratory - Denies chronic cough and shortness of breath. Gastrointestinal - Denies nausea, vomiting, diarrhea, and constipation. Hematologic - Denies abnormal bruising and bleeding. Genitourinary - Denies hematuria and urinary frequency. PHYSICAL EXAMINATION General - Alert and Oriented HEENT - PERRL. EOMI. Throat is clear. Neck - Supple and nontender. No cervical adenopathy. Lungs - Clear to auscultation. Heart - Regular rate and rhythm. Abdomen - Soft and nondistended. Extremities - FROM. No axillary adenopathy. Radial pulses are palpable. On the dorsum left long finger on the radial aspect at the DIP joint is a soft tissue mass consistent with a mucous cyst. Measures 1 cm. Overlying skin is a little thin. No evidence of infection. There is nail grooving. Flexion and extension are intact. No sensory deficits. Fingers are warm with good capillary refill. No axillary adenopathy. Patient is right hand dominant. Neuro - CN II-XII grossly intact. Psych - Normal mood and affect. ASSESSMENT 1. 1 cm mucous cyst left long finger on the radial aspect at the DIP joint. 2. Nail grooving. PLAN Patient has a soft tissue mass left long finger that is clinically consistent with a mucous cyst. He has been developing nail grooving. Recommend excision of this mass and send it to Pathology for analysis to rule out carcinoma. Will need to excise any osteophytes to minimize recurrence. Sometimes these cysts extend underneath the extensor tendon. Postoperatively may need an extension splint for a few weeks to allow the weakened tendon to strengthen. Excising this mass should take pressure off the growth center of the nail complex and improve the nail grooving. Because the overlying skin is a little thin, will probably remove it. Since the dissection extends down to the tendon and bone, a skin graft would not be adequate for wound closure. He would need a dorsal skin advancement flap for reconstruction. Preop he will need an Xray to look for any bony abnormalities. He states he is having an orthopedic procedure by Dr. Arevalo in [place] on 10/28/17. Will schedule the excision of this mucous cyst after he has recovered from his orthopedic procedure. Patient was informed of the risks and complications of the procedure including alternatives to surgery. These were discussed with the patient personally. Patient voices understanding and wishes to proceed. Some of the risks and complications were included in a form from the [employer]. Some of the risks and complications that were discussed included but were not inclusive of failure to diagnose including symptom relief, pain, infection, numbness, stiffness, loss of digit, RSD (CRPS), need for further surgery, contracture, and wound healing problems. Assessment AND Plan 1. 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 2. 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 Mucous cyst of digit of left hand M67.442 11/23/17 0001 <Electronically signed by Gunner Ball MD> Date Gunner Ball MD 11/26/17 1422<Electronically signed by Arcelia MARTINEZ> Cosigner Signature: Date (if applicable) Arcelia August CC: Damian Burr MD EMERGENCY DEPARTMENT Observed: 11/02/2017 Status: F Source: [place] SUMMARY 3:35 PM [facility] REPOSITORY [facility] Medical Records Department [address] [place] [address] Emergency Department Summary 11/02/17 1526 MR#: [id number] Acct: [id number] Name: CUAUHTEMOC FUCHS Rep #: [id number] : 1950 67 From: Deon Moore MD PCP: Leno MALIK,Damian Status: REG ER - ER Visit Summary Date of Service: 11/02/17 Prior Chest pain chart dictated in error, please disregard Chief Complaint: Knee pain History of Present Illness: The patient is a 67 M presents with right knee pain. He had a right total knee augmentation 5 days ago. He concurrently developed a catheter associated urinary tract infection and he is on Bactrim he had high fevers, however they are improving. His issue today with edema of the right knee region there is some more erythema today. He does not have significant pain when sitting down this is baseline since the surgery. Physical Examination: Not appear in acute distress. Moist mucous membranes, no obvious facial deformity No C-spine tenderness supple neck. Regular rate and rhythm without any obvious murmurs Clear lungs bilaterally speaking in full sentences without any obvious respiratory distress Abdomen soft and nontender no guarding or rebound Knee evaluation reveals diffuse edema some ecchymoses. Very slight erythema is present around the staple site, no pallor. Leonel are clean dry and intact I cannot expectorate any discharge. Skin does not show any obvious rashes or lesions, no trauma. Alert oriented 3 with no gross focal deficit Emergency Department Course and Treatment: X-rays unremarkable his workup in the emergency department is unremarkable all discussed with Dr. Arevalo, per his request I added a an ESR and CRP, he will follow these up tomorrow morning in the office in less than 24 hours. He does not wish any further antibiotics. He told patient to see him in the office tomorrow morning. I discussed with the patient. He will be discharged in stable condition. Impression: Postop knee pain This note was generated with Yong[employer] dictation software. It may contain incorrect words, spelling, and punctuation that were not noted in review of the chart prior to signing ED Disposition - Plan for ED Patient: Disposition: Home or Assisted Living Chief Complaint: Lower Extremity Injury Instructions: ED Effusion Knee Referrals: Thanh Arevalo MD [STAFF PHYSICIAN] - 2 Days What to do if you have Problems For any increased pain, shortness of breath, bleeding, nausea or vomiting, chest pain, or any unexpected problems, contact your Primary Care Provider. Call [facility] ([phone]) or report to the closest Emergency Room. Call 911 if necessary. 11/02/17 1535 <Electronically signed by Deon Moore MD> Date Deon Moore MD Cosigner Signature (If Indicated): Date CC: Damian Burr MD BASIC METABOLIC Collected: 11/02/2017 Status: F Source: [place] PROFILE ([facility]) 2:55 PM [facility] REPOSITORY TYPE CODE TESTS RESULT OUT OF RANGE REFERENCE UNITS LAB L501.0100 74-106 mg/dL High GLU 128 Result Comment: Fasting Glucose result greater than or equal to 126 mg/dL suggests DIABETES MELLITUS per A.D.A. criteria. Please note revised GLUCOSE reference range effective 2017. LAB L501.1000 7-18 mg/dL Normal BUN 15 LAB L501.1100 0.70-1.30 mg/dL Normal CREAT,SERUM 1.23 Result Comment: The validity of the calculated GFR AND GFRAA in patients over 70 years has not been determined. Clinical correlation is essential. LAB L501.1110 >60 mL/min Normal EST GFR 63 Result Comment: Non- GFR Calc LAB L501.1115 >60 mL/min Normal EST GFR - AA 76 Result Comment: GFR Calc LAB L501.1255 ml/min Normal Estimated CRCL 55.98 LAB L501.1300 10-20 RATIO Normal BUN/CRE 12.2 LAB L501.2200 8.5-10 mg/dL Normal .1 CA 9.1 LAB L501.5300 136-14 mmol/L Low 5 NA 134 LAB L501.5600 3.5-5. mmol/L Normal 1 K 4.3 LAB L501.5900 98-107 mmol/L Normal CL 101 LAB L501.6100 21.0-3 mmol/L Normal 2.0 CO2 29.0 LAB L501.6200 5-15 Low GAP 4 Performed By: #### L500.2500 #### [facility] [address] [place], [place], [address] CBC W/DIFF, AUTOMATED Collected: 11/02/2017 Status: F Source: [place] 2:55 PM [facility] REPOSITORY TYPE CODE TESTS RESULT OUT OF RANGE REFERENCE UNITS LAB L100.1000 4.4-11.0 K/mm3 Normal WBC 7.5 LAB L100.1200 4.6-6.2 M/mm3 Low RBC 3.93 LAB L100.1300 13.0-16.5 g/dl Low HGB 12.4 LAB L100.1400 40-54 % Low HCT 37.2 LAB L100.1500 80-94 fL High MCV 94.7 LAB L100.1600 27.0-32.0 pg Normal MCH 31.6 LAB L100.1700 32-36 g/gl Normal MCHC 33.3 LAB L100.1810 11.6-14.6 % Normal RDW CV 12.4 LAB L100.1820 35.1-43.9 fl Normal RDW SD 42.1 LAB L100.1900 150-450 K/mm3 Normal PLT 176 LAB L100.2000 6.2-12.0 fl Normal MPV 9.6 LAB L100.2100 47-70 % High NEUT% 85.7 LAB L100.2200 19-41 % Low LY% 7.0 LAB L100.2300 0-10 % Normal MONO% 6.0 LAB L100.2400 0-5 % Normal EO% 0.9 LAB L100.2500 0-1 % Normal BASO% 0.3 LAB L100.2550 0.0-0.9 % Normal IM GRAN % 0.100 Result Comment: IG% - Immature Granulocytes (promyelocytes, myelocytes and metamyelocytes) > 1% indicates that a LEFT SHIFT is Present. LAB L100.2620 2.0-7.7 X10 3/uL Normal Absolute Neut 6.4 LAB L100.2720 0.83-4.51 X10 3/ul Low Absolute Lymph 0.52 LAB L100.4500 Normal SMEAR COMMENT SCANNED Result Comment: LYMPHOPENIA NOTED Performed By: #### L100.0100 #### [facility] [address] [place], [address] CRP Collected: 11/02/2017 Status: F Source: [place] 2:55 PM [facility] REPOSITORY TYPE CODE TESTS RESULT OUT OF RANGE REFERENCE UNITS LAB L501.6710 0.0-3.0 mg/L High 135.00 C-REACTIVE PROT Result Comment: C-Reactive Protein (CRP) provides useful information for the diagnosis, therapy and monitoring of inflammatory processes and associated diseases. For the evaluation of Relative Risk for Cardiovascular Disease, a High Sensitivity CRP (HSCRP) should be ordered. Performed By: #### L501.6710 #### [facility] [address] [place], [address] ERYTHROCYTE SED RATE Collected: 11/02/2017 Status: F Source: [place] 2:55 PM [facility] REPOSITORY TYPE CODE TESTS RESULT OUT OF RANGE REFERENCE UNITS LAB L102.0000 0-20 mm/hr High SED RATE 30 Performed By: #### L101.9900 #### [facility] [address] [place], [address] KNEE 4 OR MORE Observed: 11/02/2017 Status: F Source: [place] VIEWS 2:09 PM [facility] REPOSITORY [facility] Imaging Services [address] [place] [address] Knee 4 or More Views MR#: [id number] Acct: [id number] Name: CUAUHTEMOC FUCHS Rep #: [id number] : 1950 M 67 From: Vinod Brown MD PCP: Damian Burr MD Status: [facility] ER Study: Knee 4 or More Views Date of Exam: 11/02/17 Exam# [id number] Ordering Dr: Deon Moore MD STUDY: X-RAY - RIGHT KNEE REASON FOR EXAM: Male, 67 years old. Pain and swelling. TECHNIQUE: For view(s) of the knee. COMPARISON: February 21, 2014 radiograph FINDINGS: Right-sided hip arthroplasty. No evidence for periprosthetic fractures. Joint effusion. Subcutaneous emphysema. Subtle lucency in the distal right femur noted which was not seen on previous examination IMPRESSION: Status post right-sided knee arthroplasty. No evidence for acute fractures. Subtle lucency in the distal right femur noted not seen on previous examination. Differential considerations include intraosseous abscess however nonspecific in appearance Electronically Signed: Vinod Brown, at 15:09 EDT Tel , Service support , RAD/Knee 4 or More Views CC: Damian Burr MD; Deon Moore MD Clinical Sciences Professor: Signed EMERGENCY DEPARTMENT Observed: 11/02/2017 Status: F Source: [place] SUMMARY 1:59 PM [facility] REPOSITORY [facility] Medical Records Department [address] [place] [address] Emergency Department Summary 11/02/17 1357 MR#: [id number] Acct: [id number] Name: CUAUHTEMOC FUCHS Rep #: [id number] : 1950 67 From: Deon Moore MD PCP: Damian Burr MD Status: PRE ER - ER Visit Summary Date of Service: 11/02/17 Chief Complaint: Chest pain History of Present Illness: The patient is a 67 M with one episode of sharp stabbing chest pain started an hour prior to arrival lasted about 20 minutes. No radiation. No tearing pain. No fever chills. No PE risk factors, no back pain. No pleuritic component. Physical Examination: Not appear in acute distress. Moist mucous membranes, no obvious facial deformity No C-spine tenderness supple neck. Regular rate and rhythm without any obvious murmurs Clear lungs bilaterally speaking in full sentences without any obvious respiratory distress Abdomen soft and nontender no guarding or rebound Moves all extremities without any difficulty or pain. Skin does not show any obvious rashes or lesions, no trauma. Alert oriented 3 with no gross focal deficit Emergency Department Course and Treatment: Patient had an unremarkable workup, however he has a history of cardiomyopathy, hypertension, hypercholesterolemia and is a heavy smoker therefore I will admit him. Impression: Chest pain This note was generated with YongChe dictation software. It may contain incorrect words, spelling, and punctuation that were not noted in review of the chart prior to signing ED Disposition - Plan for ED Patient: Chief Complaint: Lower Extremity Injury Referrals: Damian Burr MD [Primary Care Provider] - What to do if you have Problems For any increased pain, shortness of breath, bleeding, nausea or vomiting, chest pain, or any unexpected problems, contact your Primary Care Provider. Call [facility] ([phone]) or report to the closest Emergency Room. Call 911 if necessary. 11/02/17 2701 <Electronically signed by Deon Moore MD> Date Deon Moore MD Cosigner Signature (If Indicated): Date CC: Damian Burr MD URINALYSIS, COMPLETE Collected: 10/30/2017 Status: F Source: [facility]IO 12:41 PM [facility] REPOSITORY Order Comment: How was Urine Obtained? CLEAN CATCH TYPE CODE TESTS RESULT OUT OF RANGE REFERENCE UNITS LAB L400.3000 Yellow COLOR Normal Yellow LAB L400.3050 Clear Normal CLARITY Clear LAB L400.3200 Normal mg/dl Normal GLUCOSE, UR Normal LAB L400.3300 Negative mg/dL Normal BILIRUBIN URINE Negative LAB L400.3400 Negative mg/dl High 50 KETONE UR LAB L400.3465 1.002-1.030 Normal SP.GR. DIPSTX 1.015 LAB L400.3550 5.0 - 8.0 pH UR Normal 6.0 LAB L400.3600 Negative mg/dl High PROT 15 DIPSTX LAB L400.3700 Normal mg/dl Normal UROBILI Normal LAB L400.3750 Negative Normal NITRITE UR Negative LAB L400.3780 Negative /ul High 10 OCCULT BLOOD-UR LAB L400.3800 Negative /ul High LEUK 25 ESTERASE LAB L400.4050 0-5 /hpf WBC Normal 0-5 SEEN LAB L400.4100 0-5 /hpf 0 Normal RBC-UA SEEN LAB L400.4150 0-5 /hpf SQUAM 0 Normal EPI SEEN LAB L400.4300 None Seen /hpf 1+ Normal BACTERIA LAB L400.4350 <or=2+ /hpf 2+ Normal MUCUS, URINE Performed By: #### L400.0001 #### [facility] [address] [place], [place], [id number] CBC Collected: 10/29/2017 Status: F Source: [facility] 5:24 AM [facility] REPOSITORY TYPE CODE TESTS RESULT OUT OF REFERENCE UNITS RANGE LAB WBC(LOINC) 4.60-10.80 10 3/mcL High WBC 12.70 LAB RBCCT(LOINC 4.04-6.13 10 6/mcL ) RBC 4.20 LAB HGB(LOINC) 14.0-18.0 G/dL Low Hgb 13.2 LAB HCT(LOINC) 42.0-52.0 % Low Hct 38.4 LAB MCV(LOINC) 80.0-94.0 fL MCV 91.6 LAB MCH(LOINC) 27.0-31.2 pg High MCH 31.5 LAB MCHC(LOINC) 31.8-35.4 G/dL MCHC 34.4 LAB RDW(LOINC) 11.5-14.5 % RDW 13.0 LAB PLT(LOINC) 130-400 10 3/mcL Platelet 132 LAB MPV(LOINC) 7.4-10.4 fL MPV 9.0 Performed By: #### CBC, ADIFF, ANEU #### [address] [address] #### BMP, GFR #### [address] [address] .AUTO DIFF Collected: 10/29/2017 Status: F Source: [facility] 5:24 AM [facility] REPOSITORY TYPE CODE TESTS RESULT OUT OF REFERENCE UNITS RANGE LAB TARSHA(LOINC) 37.0-80.0 % High Neutrophil % 85.3 LAB LYM(LOINC) 10.0-50.0 % Low Lymphocyte % 8.3 LAB MON(LOINC) 1.7-13.0 % Monocyte % 6.1 LAB EO(LOINC) 0.0-7.0 % Eosinophil % 0.1 LAB BAS(LOINC) 0.0-2.5 % Basophil % 0.2 LAB ABLYM(LOIN 0.77-3.85 10 3/mcL C) Lymphocyte, 1.10 Absolute LAB DAVID(LOINC 0.15-1.00 10 3/mcL ) Monocyte, 0.80 Absolute LAB AEOS(LOINC 0.00-0.40 10 3/mcL ) Eosinophil, 0.00 Absolute LAB ABAS(LOINC 0.00-0.19 10 3/mcL ) Basophil, 0.00 Absolute Performed By: #### CBC, ADIFF, ANEU #### [address] [place], [place] [address] #### BMP, GFR #### [address] [address] .NEUABS Collected: 10/29/2017 Status: F Source: [facility] 5:24 AM [facility] REPOSITORY TYPE CODE TESTS RESULT OUT OF REFERENCE UNITS RANGE LAB ANEU(LOINC) 2.85-6.16 10 3/mcL High Neutrophil, 10.80 Absolute Performed By: #### CBC, ADIFF, ANEU #### [address] [address] #### BMP, GFR #### [address] [address] BMP Collected: 10/29/2017 Status: F Source: [facility] 5:24 AM [facility] REPOSITORY TYPE CODE TESTS RESULT OUT OF REFERENCE UNITS RANGE LAB GLU(LOINC) 80-115 mg/dL Glucose High Level 123 LAB NA(LOINC) 136-145 mmol/L Sodium Level 139 LAB K(LOINC) 3.5-5.1 mmol/L Potassium Level 4.0 LAB CL(LOINC) 98-107 mmol/L Chloride 104 LAB CO2(LOINC) 23-31 mmol/L CO2 30 LAB EBAL(LOINC mEq/L ) Electrolyte Balance 5.0 LAB BUN(LOINC) 7-18 mg/dL BUN 18 LAB CRE(LOINC) 0.70-1.30 mg/dL Creatinine Lvl (s) 1.04 LAB BC(LOINC) 7-27 ratio BUN/Creatinine 17 Ratio LAB CA(LOINC) 8.4-10.2 mg/dL Low Calcium Lvl 8.3 Performed By: #### CBC, ADIFF, ANEU #### [address] [address] #### BMP, GFR #### [address] [address] .GFR Collected: 10/29/2017 Status: F Source: [employer] [facility] 5:24 AM [facility] REPOSITORY TYPE CODE TESTS RESULT OUT OF REFERENCE UNITS RANGE LAB GFRAA(LOINC ml/min/1.73 ) sqm GFR 87 [place] Result Comment: GFR Population mean for , Non- Americans Ages 20-29 = 116 mL/min/1.73 sq.m. Ages 30-39 = 107 mL/min/1.73 sq.m. Ages 40-49 = 99 mL/min/1.73 sq.m. Ages 50-59 = 93 mL/min/1.73 sq.m. Ages 60-69 = 85 mL/min/1.73 sq.m. Ages 70+ = 75 mL/min/1.73 sq.m. Chronic Kidney Disease: Less than 60 mL/min/1.73 square meters End Stage Renal Disease: Less than 15 mL/min/1.73 square meters LAB GFRNO(LOINC) ml/min/1.73sqm GFR Non- 72 Result Comment: GFR Population mean for , Non- Americans Ages 20-29 = 116 mL/min/1.73 sq.m. Ages 30-39 = 107 mL/min/1.73 sq.m. Ages 40-49 = 99 mL/min/1.73 sq.m. Ages 50-59 = 93 mL/min/1.73 sq.m. Ages 60-69 = 85 mL/min/1.73 sq.m. Ages 70+ = 75 mL/min/1.73 sq.m. Chronic Kidney Disease: Less than 60 mL/min/1.73 square meters End Stage Renal Disease: Less than 15 mL/min/1.73 square meters Performed By: #### CBC, ADIFF, ANEU #### [address] [address] #### BMP, GFR #### [facility] [address] [place] [address] XR KNEE 1 OR 2 Observed: 10/28/2017 Status: F Source: [employer] VIEWS LEFT 10:03 AM [facility] REPOSITORY ORIGINAL XR KNEE 1 OR 2 VIEWS LEFT CLINICAL STATEMENT: Status Post Arthroplasty COMPARISON: None FINDINGS: Patient is status post total RIGHT knee arthroplasty. The alignment is anatomic. Air and fluid noted in the soft tissues and joint space. Skin leonel noted. IMPRESSION: Anatomic alignment of the new RIGHT knee prosthesis Interpreted By: Mal Starr MD Preliminary Report By: Mal Starr MD Electronically Signed By: Mal Starr MD Dictated Date: 10/28/2017 10:11:30 AM Prelim Date: 10/28/2017 10:11:30 AM Sign Date: 10/28/2017 10:12:18 AM FINGER(S) MIN 2 VIEWS Observed: 10/23/2017 Status: F Source: [place] 3:20 PM [facility] REPOSITORY [facility] Imaging Services [address] [place] [address] Finger(s) Min 2 Views MR#: [id number] Acct: [id number] Name: CUAUHTEMOC FUCHS Rep #: [id number] : 1950 M 67 From: Arthur Johnson MD PCP: Damian Burr MD Status: REG CLI Study: Finger(s) Min 2 Views Date of Exam: 10/23/17 Exam# [id number] Ordering Dr: Gunner Ball MD STUDY: X-RAY - LEFT HAND, ATTENTION MIDDLE FINGER REASON FOR EXAM: Male, 67 years old. Pain TECHNIQUE: 3 view(s) of the finger were obtained. COMPARISON: None. FINDINGS: Normal metacarpal head. Normal metacarpophalangeal joint. Normal proximal phalanx. Normal middle phalanx. Normal distal phalanx. Normal proximal interphalangeal joint. Normal distal interphalangeal joint. There is no soft tissue swelling. RAD/Finger(s) Min 2 Views IMPRESSION: Normal x-ray examination of the finger. Electronically Signed: Arthur Johnson MD at 16:01 EDT , Service support , CC: Damian Burr MD; Gunner Ball MD Clinical Sciences Professor: Signed CBC Collected: 10/20/2017 Status: F Source: [facility] 10:39 AM [facility] REPOSITORY Order Comment: Pre-Admission Testing TYPE CODE TESTS RESULT OUT OF REFERENCE UNITS RANGE LAB WBC(LOINC) 4.60-10.80 10 3/mcL WBC 7.00 LAB RBCCT(LOINC 4.04-6.13 10 6/mcL ) RBC 4.86 LAB HGB(LOINC) 14.0-18.0 G/dL Hgb 15.5 LAB HCT(LOINC) 42.0-52.0 % Hct 45.0 LAB MCV(LOINC) 80.0-94.0 fL MCV 92.5 LAB MCH(LOINC) 27.0-31.2 pg High MCH 32.0 LAB MCHC(LOINC) 31.8-35.4 G/dL MCHC 34.6 LAB RDW(LOINC) 11.5-14.5 % RDW 13.2 LAB PLT(LOINC) 130-400 10 3/mcL Platelet 174 LAB MPV(LOINC) 7.4-10.4 fL MPV 9.4 Performed By: #### CBC, ADIFF, ANEU, BMP, GFR #### [facility] [place] [address] .AUTO DIFF Collected: 10/20/2017 Status: F Source: [facility] 10:39 AM [facility] REPOSITORY TYPE CODE TESTS RESULT OUT OF REFERENCE UNITS RANGE LAB TARSHA(LOINC) 37.0-80.0 % Neutrophil % 68.9 LAB LYM(LOINC) 10.0-50.0 % Lymphocyte % 21.4 LAB MON(LOINC) 1.7-13.0 % Monocyte % 6.1 LAB EO(LOINC) 0.0-7.0 % Eosinophil % 2.9 LAB BAS(LOINC) 0.0-2.5 % Basophil % 0.7 LAB ABLYM(LOIN 0.77-3.85 10 3/mcL C) Lymphocyte, 1.50 Absolute LAB DAVID(LOINC 0.15-1.00 10 3/mcL ) Monocyte, 0.40 Absolute LAB AEOS(LOINC 0.00-0.40 10 3/mcL ) Eosinophil, 0.20 Absolute LAB ABAS(LOINC 0.00-0.19 10 3/mcL ) Basophil, 0.00 Absolute Performed By: #### CBC, ADIFF, ANEU, BMP, GFR #### [address] [address] .NEUABS Collected: 10/20/2017 Status: F Source: [employer] 10:39 AM [facility] REPOSITORY TYPE CODE TESTS RESULT OUT OF REFERENCE UNITS RANGE LAB ANEU(LOINC) 2.85-6.16 10 3/mcL Neutrophil, 4.80 Absolute Performed By: #### CBC, ADIFF, ANEU, BMP, GFR #### [address] [address] BMP Collected: 10/20/2017 Status: F Source: [facility] 10:39 AM [facility] REPOSITORY TYPE CODE TESTS RESULT OUT OF REFERENCE UNITS RANGE LAB GLU(LOINC) 80-115 mg/dL Glucose Level 107 LAB NA(LOINC) 136-146 mEq/L Sodium Level 139 LAB K(LOINC) 3.5-5.1 mEq/L Potassium Level 4.4 LAB CL(LOINC) 98-107 mEq/L Chloride 105 LAB CO2(LOINC) 23-31 mEq/L CO2 26 LAB EBAL(LOINC mEq/L ) Electrolyte Balance 8.0 LAB BUN(LOINC) 7.0-18.0 mg/dL BUN High 20.2 LAB CRE(LOINC) 0.6-1.2 mg/dL Creatinine Lvl (s) 0.9 LAB BC(LOINC) 7-27 ratio BUN/Creatinine 22 Ratio LAB CA(LOINC) 8.4-10.2 mg/dL Calcium Lvl 9.1 Performed By: #### CBC, ADIFF, ANEU, BMP, GFR #### [address] [address] .GFR Collected: 10/20/2017 Status: F Source: [employer] 10:39 AM [facility] REPOSITORY TYPE CODE TESTS RESULT OUT OF REFERENCE UNITS RANGE LAB GFRAA(LOINC ml/min/1.73 ) sqm GFR >60 Fijian Result Comment: GFR Population mean for , Non- Americans Ages 20-29 = 116 mL/min/1.73 sq.m. Ages 30-39 = 107 mL/min/1.73 sq.m. Ages 40-49 = 99 mL/min/1.73 sq.m. Ages 50-59 = 93 mL/min/1.73 sq.m. Ages 60-69 = 85 mL/min/1.73 sq.m. Ages 70+ = 75 mL/min/1.73 sq.m. Chronic Kidney Disease: Less than 60 mL/min/1.73 square meters End Stage Renal Disease: Less than 15 mL/min/1.73 square meters LAB GFRNO(LOINC) ml/min/1.73sqm GFR Non- >60 Result Comment: GFR Population mean for , Non- Americans Ages 20-29 = 116 mL/min/1.73 sq.m. Ages 30-39 = 107 mL/min/1.73 sq.m. Ages 40-49 = 99 mL/min/1.73 sq.m. Ages 50-59 = 93 mL/min/1.73 sq.m. Ages 60-69 = 85 mL/min/1.73 sq.m. Ages 70+ = 75 mL/min/1.73 sq.m. Chronic Kidney Disease: Less than 60 mL/min/1.73 square meters End Stage Renal Disease: Less than 15 mL/min/1.73 square meters Performed By: #### CBC, ADIFF, ANEU, BMP, GFR #### [place] [address] [address] ORTHOPEDIC VISIT Observed: 10/03/2017 Status: F Source: [facility] REPORT 11:29 AM [facility] Orthopaedics AND Sports Medicine [address] [place] [address] OFFICE VISIT Date of Service: 09/24/17 MR#: [id number] Acct: [id number] Name: CUAUHTEMOC FUCHS Roni Rep #: [id number] : 1950 Provider: Connor Mcclendon DO Age/Sex: 67/M Location: [facility] Status: Signed Intake Intake Visit Reasons: RIGHT KNEE Is patient in pain?: Yes Allergies No Known Allergies Allergy (Verified 09/24/17 09:35) Medications Aspirin [Adult Low Dose Aspirin EC] 81 mg PO DAILY 03/15/15 [History Confirmed 08/18/17] Doxazosin Mesylate [Cardura] 1 mg PO QHS 03/15/15 [History Confirmed 08/18/17] Lisinopril [Zestril] 20 mg PO QHS 03/15/15 [History Confirmed 08/18/17] metoprolol succinate ER 25 mg tablet,extended release 24 hr 12.5 mg PO QHS 04/30/17 [History Confirmed 08/18/17] PFSH Medical History Cataracts, bilateral (Acute) Hearing problem (Acute) Heart murmur (Acute) Hypertension (Chronic) Surgical History H/O lateral meniscus repair of right knee (Acute) History of cataract extraction (Acute) History of gynecomastia (Acute) History of hydrocelectomy (Acute) History of inguinal herniorrhaphy (Acute) History of shoulder surgery (Acute) History of tonsillectomy and adenoidectomy (Acute) S/P colonoscopy (Acute) Cataract extraction status (Inactive) Gynecomastia (Inactive) H/O hernia repair (Inactive) History of tonsillectomy (Inactive) S/P right knee arthroscopy (Inactive) S/P shoulder surgery (Inactive) Family History Father Diabetes Heart disease Hypertension CVA (cerebral vascular accident) Mother Hypertension Cancer Alzheimer's dementia Anesthesia complication Breast cancer Social History Smoking Status: Never smoker alcohol intake: never substance use type: does not use additional social history: DOES USE ASPIRIN DOES USE IBUPROFEN HPI RIGHT KNEE: Details: CUAUHTEMOC FUCHS is a 67 year old M here today for a followup after his right knee MRI. Patient states that he continues to have knee pain especially while ambulating stairs. He had an injection on 08/13/17 which was helpful for about 3-4 weeks. His pain is over his posterior knee . His MRI is here for review. ROS Const Reports system reviewed and no additional complaints, except as docu Eyes Reports system reviewed and no additional complaints, except as docu ENT Reports system reviewed and no additional complaints, except as docu Card Reports system reviewed and no additional complaints, except as docu Resp Reports system reviewed and no additional complaints, except as docu GI Reports system reviewed and no additional complaints, except as docu Reports system reviewed and no additional complaints, except as docu Musc Reports joint pain Skin/Breast Reports system reviewed and no additional complaints, except as docu Neuro Yes system reviewed and no additional complaints, except as docu Psych Reports system reviewed and no additional complaints, except as docu Endo Reports system reviewed and no additional complaints, except as docu Ortho Exam Right Knee Contralateral Normal: Yes Swelling: Yes Homans Sign: No 1+: Effusion Knee ROM: Yes ROM-Extension -20 to 0, Yes ROM-Flexion 0-140, Yes ROM-Passive Extension -10 to 0, Yes ROM-Passive Flexion 0-140 Examination: Yes Med jt line tenderness, Yes Lat jt line tenderness, Yes Pain with flexion, Yes Pain with extention, Yes Crepitus, Yes Smooth's Test Quad Atrophy: No Stability: NML: Posterior Drawer, NML: Valgus 30, NML: Varus 0, NML: Varus 30, NML: Dial 90, NML: Dial 30, 1+: Valgus 0, 2+: Edna (2a) Popliteal Adenopathy: No Patella Translation: 1 Apprehension with Lateral Translation: No Patellar Tilt Normal: Yes Patella Grind: No KNEE: Alert and oriented 3 no acute distress. Appropriate eye contact and affect. Otherwise intact from L1-S1 distributions. He has positive pulses. EHL anterior gastrocsoleus peroneals quads hamstrings are 5 out of 5. Patient has an obvious varus knee. He has a grade 1 MCL opening at 30 of valgus load. He stable at 0 and 30 of varus. Patient has a 2A Lockman. He has an obvious Smooth's and Apley's maneuver medially. He has a recurrent effusion as expected. No obvious popliteal masses. MRI: Evaluated by myself with the patient-MRI shows a partial patient to have medial compartment arthrosis and degenerative changes across patellofemoral joint. Lateral compartment is relatively preserved secondary to the varus nature of his knee. He shows increased Winthrop changes with subchondral edema to the tibia and femur. He has an extruded meniscus with minimal remnant body of the medial meniscus. He has a ACL partial disruption. PCL is intact. Knee effusion noted. X-rays: Evaluated by myself the patient-standing weightbearing views of the knee show the patient to be in varus with medial compartment collapse indicative of his findings on MRI. Left Knee Patella Translation: 1 Assessment AND Plan Problems 1. Knee effusion, right M25.461 2. Chronic pain of right knee M25.561; G89.29 3. Other internal derangements of right knee M23.8X1 4. Complex tear of medial meniscus of right knee as current injury, subsequent encounter S83.231D 5. Primary osteoarthritis of right knee M17.11 Plan Assessment: Right knee pain right knee effusion right knee internal derangement associated osteoarthritis a acute on chronic medial meniscus tear with extrusion. Patient shows stress reaction medial tibial plateau and femoral condyles. Plan: This point time after review of the MRI with patient I really told him that I think his best option for improved overall knee function in the face of recurrent knee effusions not responding well to injections or prior prior synovectomy would be total knee arthroplasty. Patient may be a candidate for a uni-however if his ACL is truly disrupted and showing laxity a mobile bearing prosthesis would not be warranted. He may be event may be able to benefit from a fixed-bearing unicompartmental arthroplasty however intraoperative evaluation of the patellofemoral joint lateral compartments would be needed. For now we will refer the patient to the [place] [facility] and Dr. Arevalo for follow- up care and probable surgical intervention with the patient is ready. Patient agrees with the plan. I did send the patient for Lyme titers just to check and they were negative. Any major issues return. Orders Orders: Coding Level of Care Code Off vis,est,level 4 Diagnoses Knee effusion, right M25.461 Chronic pain of right knee M25.561; G89.29 Chronicity: chronic Other internal derangements of right knee M23.8X1 Complex tear of medial meniscus of right knee as current injury, subsequent encounter S83.231D Tear current or old: current Encounter type: subsequent encounter Meniscus tear of knee type: complex Laterality: right Primary osteoarthritis of right knee M17.11 Osteoarthritis type: primary 10/03/17 1129 <Electronically signed by Connor Mcclendon DO> Date Connor Vaughnignmayank Signature: Date (if applicable) CC: DOWNTIME REPORT Observed: 09/25/2017 Status: F Source: [place] 12:06 PM [facility] REPOSITORY [facility] Medical Records Department [address] [place] [address] Downtime Report MR#: [id number] Acct: [id number] Name: CUUAHTEMOC FUCHS Rep #: [id number] : 1950 67 From: Darrell Solis PCP: Damian Burr MD Status: REG CLI This patient was seen during an EMR downtime September 08, 2017 - September 15, 2017. This patient may have a combination of paper and electronic documentation or all paper documentation. All documentation is viewable within the e-chart portion of [facility] for each patient visit. LYME SCREEN W/REFLEX Collected: 09/24/2017 Status: F Source: [place] WB 10:19 AM [facility] REPOSITORY TYPE CODE TESTS RESULT OUT OF RANGE REFERENCE UNITS LAB L7000.5400 0.00-0.90 ISR Normal LYME SCN <0.91 AB Result Comment: Negative <0.91 Equivocal 0.91 - 1.09 Positive >1.09 Performed at: - [facility] [address] [id number] Logistics Coordinator: Roddy Soliman PhD, Phone: [phone] LAB L7093.6495 Normal LYME SCN REF INTERP LAB Performed By: #### L7000.5300 #### [facility] (refer to report for specific site) refer to report for address and phone number KNEE 4 OR MORE Observed: 09/24/2017 Status: F Source: [place] VIEWS 9:46 AM [facility] REPOSITORY [facility] Imaging Services [address] [place] [address] Knee 4 or More Views MR#: [id number] Acct: [id number] Name: CUAUHTEMOC FUCHS Rep #: [id number] : 1950 M 67 From: Noel Gonzalez MD PCP: Damian Burr MD Status: REG CLI Study: Knee 4 or More Views Date of Exam: 09/24/17 Exam# [id number] Ordering Dr: Connor Mcclendon DO STUDY: X-RAY - RIGHT KNEE REASON FOR EXAM: Male, 67 years old. Chronic pain TECHNIQUE: 4 view(s) of the knee. COMPARISON: None. FINDINGS: Normal visualized distal femur. Normal visualized proximal tibia and fibula. Normal proximal tibiofibular articulation. There is mild degenerative arthrosis of the medial femorotibial compartment. Normal lateral femorotibial compartment. Normal patellofemoral articulation. There is a soft tissue prominence in the suprapatellar region suggesting a small volume joint effusion. The soft tissue structures are unremarkable. RAD/Knee 4 or More Views IMPRESSION: There is mild degenerative arthrosis of the medial femorotibial compartment. There is a soft tissue prominence in the suprapatellar region suggesting a small volume joint effusion. Electronically Signed: Noel Gonzalez MD at 17:15 EDT , Service support , CC: Damian Burr MD; Connor Mcclendon DO Clinical Sciences Professor: Signed CBC W/DIFF, AUTOMATED Collected: 09/23/2017 Status: F Source: [facility] 9:46 AM [facility] REPOSITORY Order Comment: REDRAW FROM DOWNTIME TYPE CODE TESTS RESULT OUT OF RANGE REFERENCE UNITS LAB L100.1000 4.4-11.0 K/mm3 Normal WBC 8.1 LAB L100.1200 4.6-6.2 M/mm3 Normal RBC 4.77 LAB L100.1300 13.0-16.5 g/dl Normal HGB 15.0 LAB L100.1400 40-54 % Normal HCT 45.0 LAB L100.1500 80-94 fL High MCV 94.3 LAB L100.1600 27.0-32.0 pg Normal MCH 31.4 LAB L100.1700 32-36 g/gl Normal MCHC 33.3 LAB L100.1810 11.6-14.6 % Normal RDW CV 13.1 LAB L100.1820 35.1-43.9 fl High RDW SD 45.2 LAB L100.1900 150-450 K/mm3 Normal PLT 157 LAB L100.2000 6.2-12.0 fl Normal MPV 10.9 LAB L100.2100 47-70 % High NEUT% 71.2 LAB L100.2200 19-41 % Normal LY% 23.9 LAB L100.2300 0-10 % Normal MONO% 3.2 LAB L100.2400 0-5 % Normal EO% 1.4 LAB L100.2500 0-1 % Normal BASO% 0.2 LAB L100.2550 0.0-0.9 % Normal IM GRAN % 0.100 Result Comment: IG% - Immature Granulocytes (promyelocytes, myelocytes and metamyelocytes) > 1% indicates that a LEFT SHIFT is Present. LAB L100.2620 2.0-7.7 X10 3/uL Normal Absolute Neut 5.8 LAB L100.2720 0.83-4.51 X10 3/ul Normal Absolute Lymph 1.94 Performed By: #### L100.0100 #### [facility] [address] [place], [address] LOWER EXT JOINT ONLY Observed: 09/10/2017 Status: F Source: [place] (ROUTINE) 2:56 PM [facility] REPOSITORY [facility] Imaging Services [address] [place] [address] Lower Ext Joint Only (Routine) MR#: [id number] Acct: [id number] Name: CUAUHTEMCO FUCHS Roni Rep #: [id number] : 1950 M 67 From: Francois Downey MD PCP: Damian Burr MD Status: REG CLI Study: Lower Ext Joint Only (Routine) Date of Exam: 09/10/17 Exam# [id number] Ordering Dr: Connor Mcclendon DO STUDY: MRI RIGHT KNEE REASON FOR EXAM: Medial knee pain, medial meniscal repair in 2013. TECHNIQUE: Standardized fat and water weighted pulse sequences were obtained in all 3 orthogonal planes. COMPARISON: MRI images 01/06/2015 and radiographs 03/08/2016. FINDINGS: There is a partial medial meniscectomy. There is a complex signal alteration of the posterior horn/posterior body of the medial meniscus (proton-density sagittal images 27-33; proton density coronal images 15-17), more suggestive of recurrent medial meniscal tear rather than scarring since there is a parameniscal cyst (T2 coronal images 13-17). There is peripheral subluxation of the medial meniscus. There is arthrosis of the medial femorotibial compartment with chondral thinning (T2 sagittal image 17). There is mild subchondral bone edema of the medial femoral condyle and tibial plateau (T2 coronal images 13-18), a stress phenomenon. Normal medial collateral ligamentous complex (MCL). Normal distal semimembranosus, gracilis and semitendinosus tendons. There is mild intrasubstance myxoid degeneration of the anterior horn of the lateral meniscus without discrete lateral meniscal tear. There is arthrosis of the lateral femorotibial compartment with partial-thickness chondral loss (T2 sagittal image 7). There is mild bone edema of the lateral femoral condyle and tibial plateau (T2 coronal images 15-18), a stress phenomenon. Normal proximal tibiofibular articulation. Normal lateral collateral (fibular) ligament. Normal popliteus tendon. Normal biceps femoris tendon. There is a chronic tear of the anterior cruciate ligament, likely a partial tear (T2 sagittal image 11; series 7 images 8, 9). Normal posterior cruciate ligament (PCL). Normal congruent patellofemoral articulation. There is mild arthrosis of the patellofemoral compartment with mild partial-thickness chondral loss (T2 sagittal image 11). Normal medial and lateral patellar retinaculum. Normal visualized quadriceps tendon. Normal patellar tendon. There is postoperative scarring in Hoffa's fat pad. There is a psbsu-sw-essbjcia sized joint effusion. There is a small popliteal cyst with mild extravasation of fluid (T2 sagittal images 15-22). The otherwise visualized osseous structures are unremarkable. MRI/Lower Ext Joint Only (Routine) IMPRESSION: Partial medial meniscectomy with signal alteration of the posterior horn/posterior body of the medial meniscus, more suggestive of recurrent medial meniscal tear rather than scarring since there is a parameniscal cyst. 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 Tricompartmental arthrosis. Mild subchondral bone edema of the medial and lateral femoral condyles, and medial and lateral tibial plateau, a stress phenomenon. Joint effusion. Small popliteal cyst with mild extravasation of fluid. Electronically Signed: Francois Downey MD at 9:26 EDT Tel , Service support , CC: Damian Burr MD; Connor Mcclendon DO Clinical Sciences Professor: Signed COMPREHENSIVE METABOLIC Collected: 09/08/2017 Status: F Source: [facility] PROFIL 1:15 PM [facility] REPOSITORY Order Comment: RESULT(S) PREVIOUSLY REPORTED ON MANUAL REQUISITION DURING DOWNTIME. TYPE CODE TESTS RESULT OUT OF RANGE REFERENCE UNITS LAB L501.0100 74-106 mg/dL High GLU 108 Result Comment: Fasting Glucose result from 100 to 125 mg/dL suggests IMPAIRED HOMEOSTASIS per A.D.A. criteria. Please note revised GLUCOSE reference range effective 2017. LAB L501.1000 7-18 mg/dL Normal BUN 15 LAB L501.1100 0.70-1.30 mg/dL Normal CREAT,SERUM 1.02 Result Comment: The validity of the calculated GFR AND GFRAA in patients over 70 years has not been determined. Clinical correlation is essential. LAB L501.1110 >60 mL/min Normal EST GFR 78 LAB L501.1115 >60 mL/min Normal EST GFR - AA 95 LAB L501.1300 10-20 RATIO Normal BUN/CRE 14.7 LAB L501.1500 6.4-8.2 g/dL Normal T PROT 6.5 LAB L501.1800 3.2-5.0 g/dL Normal ALB 3.5 LAB L501.1950 2.2-4.2 g/dL Normal GLOB 3.0 LAB L501.2000 0.9-2.4 RATIO Normal A/G 1.2 LAB L501.2200 8.5-10.1 mg/dL Low CA 8.4 LAB L501.4100 15-37 U/L Low AST 13 LAB L501.4305 45-117 U/L Normal ALK P 70 LAB L501.4405 16-61 U/L Normal ALT 20 LAB L501.4600 0.20-1.00 mg/dL Normal T BILI 0.80 LAB L501.5300 136-145 mmol/L Normal NA 140 LAB L501.5600 3.5-5.1 mmol/L Normal K 3.7 LAB L501.5900 98-107 mmol/L Normal CL 107 LAB L501.6100 21.0-32.0 mmol/L Normal CO2 25.0 LAB L501.6200 5-15 Normal GAP 8 Performed By: #### L500.4050, L501.9520 #### [facility] [address] [place], [address] THYROID STIM HORMONE Collected: 09/08/2017 Status: F Source: [place] (TSH) 1:15 PM [facility] REPOSITORY Order Comment: RESULT(S) PREVIOUSLY REPORTED ON MANUAL REQUISITION DURING DOWNTIME. TYPE CODE TESTS RESULT OUT OF RANGE REFERENCE UNITS LAB L501.9520 0.358-3.74 uIU/mL Normal TSH 0.95 Performed By: #### L500.4050, L501.9520 #### [facility] [address] [place], [address] PROTHROMBIN TIME W/INR Collected: 09/08/2017 Status: F Source: [place] 1:15 PM [facility] REPOSITORY Order Comment: RESULT(S) PREVIOUSLY REPORTED ON MANUAL REQUISITION DURING DOWNTIME. TYPE CODE TESTS RESULT OUT OF RANGE REFERENCE UNITS LAB L300.4150 11.7-14.9 SECONDS Normal PROTIME 13.8 LAB L300.4200 Normal INR 1.1 Performed By: #### L300.3900, L300.4310 #### [facility] [address] [place], [address] PARTIAL THROMBOPLAST Collected: 09/08/2017 Status: F Source: [place] TIME 1:15 PM [facility] REPOSITORY Order Comment: RESULT(S) PREVIOUSLY REPORTED ON MANUAL REQUISITION DURING DOWNTIME. TYPE CODE TESTS RESULT OUT OF RANGE REFERENCE UNITS LAB L300.4310 24.1-36.2 Seconds Normal PTT 29.2 Performed By: #### L300.3900, L300.4310 #### [facility] [address] [place], [address] ORTHOPEDIC VISIT Observed: 08/25/2017 Status: F Source: [place] REPORT 8:07 AM [facility] REPOSITORY [facility] Orthopaedics AND Sports Medicine [address] [place] [address] OFFICE VISIT Date of Service: 08/13/17 MR#: [id number] Acct: [id number] Name: CUAUHTEMOC FUCHS Rep #: [id number] : 1950 Provider: Connor Mcclendon DO Age/Sex: 67/M Location: [facility] [place] Status: Signed Intake Intake Visit Reasons: RIGHT KNEE Is patient in pain?: Yes Allergies No Known Allergies Allergy (Verified 08/18/17 09:16) Medications Aspirin [Adult Low Dose Aspirin EC] 81 mg PO DAILY 03/15/15 [History Confirmed 08/18/17] Doxazosin Mesylate [Cardura] 1 mg PO QHS 03/15/15 [History Confirmed 08/18/17] Lisinopril [Zestril] 20 mg PO QHS 03/15/15 [History Confirmed 08/18/17] metoprolol succinate ER 25 mg tablet,extended release 24 hr 12.5 mg PO QHS 04/30/17 [History Confirmed 08/18/17] PFSH Medical History Hypertension (Chronic) Surgical History Cataract extraction status (Inactive) Gynecomastia (Inactive) H/O hernia repair (Inactive) History of tonsillectomy (Inactive) S/P right knee arthroscopy (Inactive) S/P shoulder surgery (Inactive) Family History Father Diabetes Heart disease Hypertension CVA (cerebral vascular accident) Mother Hypertension Cancer Alzheimer's dementia Social History Smoking Status: Never smoker HPI RIGHT KNEE: Details: CUAUHTEMOC FUCHS is a 67 year old M here today for increased right knee pain. He states that since moving he has had increased posterior knee pain and he can no longer do stairs except one at a time. He also complains of proximal tibia pain and decreased rom. There is return of fluid today but he states the last injection from april was helpful to dull the pain and reduce the swelling. Denies numbness, tingling or other associated symptoms. Ortho Exam Right Knee Contralateral Normal: Yes Homans Sign: No 1+: Effusion Knee ROM: Yes ROM-Extension -20 to 0, Yes ROM-Flexion 0-140, Yes ROM-Passive Extension -10 to 0, Yes ROM-Passive Flexion 0-140 Examination: Yes Med jt line tenderness, Yes Crepitus, Yes Pain with flexion, Yes Pain with extention, Yes TTP inf pole patella Quad Atrophy: No Stability: NML: Anterior Drawer, NML: Edna, NML: Posterior Drawer, NML: Valgus 0, NML: Varus 0, NML: Varus 30, NML: Dial 90, NML: Dial 30 Popliteal Adenopathy: No Patella Translation: 1 Apprehension with Lateral Translation: No Patellar Tilt Normal: Yes Patella Grind: Yes KNEE: Patient is a sebacic intact from the L1-S1 distributions. He has positive pulses. No obvious adenopathy L at times he has had some mass-effect posteriorly probably consistent with popliteal cyst. Otherwise no calf pain. Range of motion is otherwise always maintained. However he is tender palpation across medial joint line pain with Smooth's and Apley's maneuver tender palpation across the patellofemoral joint and with recurrent knee effusions. Previous radiographs are reviewed and show the patient's joint space otherwise be well-maintained Left Knee Patella Translation: 1 Office Procedures Ortho Injections Injections Yes Knee Right Details: Obtained consent for injection. Under sterile conditions, injected the patients right knee with a 10cc cocktail of 8cc bupivacaine and 2cc kenalog. The patient tolerated the injection well without any noted complication. Patient should call our office if redness develops, pain worsens or if they have any concerns. Office Meds Kenalog Performing Provider: Connor Mcclendon DO Administered by: Connor Mcclendon DO on 08/13/17 10:10 Dose Route Admin Location Lot Number Expiration DateNDC [employer] 2 mg Intra-Articularright knee [id number] 08/05/17 6337-2369-41 [employer] Assessment AND Plan Problems 1. Other internal derangements of right knee M23.8X1 2. Chronic pain of right knee M25.561; G89.29 3. Knee effusion, right M25.461 Plan Assessment: Right knee internal derangement with recurrent knee effusions and right knee pain. Plan: At this point time the patient continues have recurrent effusions despite the fact he has had a synovectomy in the distant past. He continues return for aspirations and subsequent injections. Radiographically the patient's knee has remained normal. I recommendation at this point time is a reevaluation of his knee secondary patellofemoral crepitus and pain across the medial joint line to evaluate for other changes and internal derangement. This will determine whether or not the next course of operative intervention would be warranted. In the meantime we will go ahead and proceed with a repeat aspiration and injection of his knee. Patient was also counseled consented for right knee injection after aspiration. She was prepped and draped in usual fashion. Placed the patient into the supine position with the knee hyperextended be entered into the suprapatellar pouch and aspirated off work roughly 20 cc of normal-appearing joint fluid. We then injected 10 cc cocktail of 8 cc of ropivacaine 2 cc of Kenalog through the previously placed a needle. Patient tolerated procedure well he was placed a compressive wrap. Patient will follow-up after MRI completed. Any major issues return. 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 [place] [address] OFFICE VISIT Date of Service: 08/18/17 MR#: [id number] Acct: [id number] Name: CUAUHTEMOC FUCHS Rep #: [id number] : 1950 Provider: Jerson Buckley MD Age/Sex: 67/M Location: [facility] Status: Signed Intake Intake Visit Reasons: C-Scope DP 08/06 Chief Complaint: colonoscopy 5- Surg Nurse Required: No Is patient in pain?: No Allergies No Known Allergies Allergy (Verified 08/18/17 09:16) Medications Aspirin [Adult Low Dose Aspirin EC] 81 mg PO DAILY 03/15/15 [History Confirmed 08/18/17] Doxazosin Mesylate [Cardura] 1 mg PO QHS 03/15/15 [History Confirmed 08/18/17] Lisinopril [Zestril] 20 mg PO QHS 03/15/15 [History Confirmed 08/18/17] metoprolol succinate ER 25 mg tablet,extended release 24 hr 12.5 mg PO QHS 04/30/17 [History Confirmed 08/18/17] [facility] Medical History Hypertension (Chronic) Surgical History S/P colonoscopy (Acute) Cataract extraction status (Inactive) Gynecomastia (Inactive) H/O hernia repair (Inactive) History of tonsillectomy (Inactive) S/P right knee arthroscopy (Inactive) S/P shoulder surgery (Inactive) Family History Father Diabetes Heart disease Hypertension CVA (cerebral vascular accident) Mother Hypertension Cancer Alzheimer's dementia Social History Smoking Status: Never smoker HPI HPI HPI: CUAUHTEMOC FUCHS, is a 67 M who presents to the office today for follow-up from a colonoscopy which was completed at [facility] on 08/06/2017. Patient underwent a screening colonoscopy at this time he was noted to have an entirely normal colonoscopy there were no masses within his anus. And I recommended at that time that he have a repeat colonoscopy in 10 years. Since his colonoscopy he has been moving his bowels regularly he is not complaining of any abdominal pain. Exam GI Other: Patient's abdomen is soft and nontender normal active bowel sounds Assessment AND Plan Problems 1. Screening for colon cancer Z12.11 Plan Patient will need to have another colonoscopy in 10 years. Coding Level of Care Code Off vis,est,level 2 Diagnoses Screening for colon cancer Z12.11 08/22/17 1437 <Electronically signed by Jerson Buckley MD> Date Jerson Buckley MD Cosigner Signature: Date (if applicable) CC: Damian Burr MD OPERATIVE REPORT Observed: 08/06/2017 Status: F Source: [place] 9:01 AM [facility] REPOSITORY [facility] Medical Records Department [address] [place] [address] Operative Report 08/06/17 0859 MR#: [id number] Acct: [id number] Name: CUAUHTEMOC FUCHS Rep #: [id number] : 1950 67 From: Jerson Buckley MD PCP: Damian Burr MD Status: [facility] Y Location: [place] [address] Problem List (1) Colon cancer screening Status: Acute Report of Operation Date of Procedure: 08/06/17 Pre-Operative Diagnosis: z12.11 screening colonoscopy Post-Operative Diagnosis: Same Surgery/Procedure Performed:: 88781 colonoscopy Type of Anesthesia:: MAC Anesthesiologist: Herbert Garg Description of Procedure: Patient was brought into the endoscopy suite. Placed on the left lateral decubitus position. Was given graded anesthesia. The scope was inserted into the rectum. The scope was directed through the sigmoid colon, descending colon, transverse colon, ascending colon, and into the cecum. Operative findings: 1. Cecum: Normal appearance no mass lesions normal ileocecal valve. 2. Ascending colon: Normal appearance no mass lesions. 3. Transverse colon: Normal appearance no mass lesions. 4. Descending colon: Normal appearance no mass lesions. 5. Sigmoid colon: Normal appearance no mass lesions a few scattered diverticuli were seen all small mouth. 6. Rectum: Normal appearance no mass lesions she had a moderate amount internal hemorrhoids identified. Scope was withdrawn digital rectal exam was performed showing no masses within the anus. Digital rectal exam was performed showing a smooth prostate with no nodules Patient had an excellent bowel prep the mucosal all look normal he has a stable colonoscopy and will not need to have a repeat colonoscopy for 10 years. - Admit VTE Documentation VTE Present on Admission: No VTE Mechan Device Prophylaxis: None VTE Pharm Prophylaxis ordered?: No Reason prophylaxis not ordered:: Treatment Not Indicated 08/06/17 0901 <Electronically signed by Jerson Buckley MD> Date Jerson Buckley MD CC: Jerson Buckley MD; Damian Burr MD Signed HISTORY AND PHYSICAL Observed: 08/06/2017 Status: F Source: [place] EXAM 8:59 AM [facility] REPOSITORY [facility] Medical Records Department [address] [place] [address] History and Physical 08/06/17 0857 MR#: [id number] Acct: [id number] Name: CUAUHTEMOC FUCHS Rep #: [id number] : 1950 67 From: Jerson Buckley MD PCP: Damian Burr MD Status: [facility] Location: [place] [address] Problem List (1) Colon cancer screening Status: Acute History of Present Illness Date of Admission: 08/06/17 The patient is a 67 year old M who presents for screening colonoscopy. Past Medical History Allergies No Known Allergies Allergy (Verified 07/30/17 11:16) Home Medications: Ambulatory Orders Medication Instructions Recorded Aspirin [Adult Low Dose Aspirin EC] 81 mg PO DAILY 03/15/15 Smoking Status: Never smoker Tobacco Use: Non-smoker - *Family History Maternal History Items: No pertinent history Review of Systems Cardiovascular: Denies: Chest Pain, Chest Pressure, Chest Tightness, Palpitations Respiratory: Denies: Cough, Hemoptysis, Shortness of breath at rest, Shortness of breath upon exertion, Wheezing Gastrointestinal: Denies: Abdominal Pain, Constipation, Diarrhea, Hematemesis, Nausea, Melena, Vomiting VTE Information - Inpt Only VTE Present on Admission: No VTE Mechan Device Prophylaxis: None VTE Pharm Prophylaxis ordered?: No Reason prophylaxis not ordered:: Treatment Not Indicated Patient Problems: Active and Suspected Problems (Last Reviewed 04/30/17 @ 09:39 by Kylah Gallardo) Colon cancer screening (Acute) - Physical Exam Lungs: Clear to auscultation Cardiovascular: Regular rate, Regular Rhythm, No murmurs Abdomen: Bowel Sounds Present, Soft, Non Tender, Non-Distended Vital Signs Temp Pulse Resp BP Pulse Ox 97 F L 58 L 16 118/75 99 08/06/17 08:20 08/06/17 08:20 08/06/17 08:20 08/06/17 08:20 08/06/17 08:20 Oxygen Delivery Method Room Air Weight: 170 lb 3.15 oz Body Mass Index (BMI) 25.1 Assessment/Plan Active and Suspected Problems (Last Reviewed 04/30/17 @ 09:39 by Kylah Gallardo) Colon cancer screening (Acute) My plan is to perform a colonoscopy. 08/06/17858 <Electronically signed by Jerson Buckley MD> Date Jerson Buckley MD [facility] Signature: Date (if applicable) CC: Jerson Buckley MD; Damian Burr MD Signed ORTHOPEDIC VISIT Observed: 05/01/2017 Status: F Source: EZIO REPORT 7:37 AM [facility] [address] [place] [address] [id number] OFFICE VISIT Date of Service: 04/30/17 MR#: [id number] Acct: [id number] Name: CUAUHTEMOC FUCHS Rep #: [id number] : 1950 Provider: Connor Mcclendon DO Age/Sex: 66/M Location: [facility] Status: Signed Intake Vital Signs01/24/18 Height 5 ft 8 in Intake Visit Reasons: Right knee Is patient in pain?: Yes Pain scale (1-10): 8 Allergies No Known Allergies Allergy (Verified 04/30/17 09:25) Medications Aspirin [Adult Low Dose Aspirin EC] 81 mg PO DAILY 03/15/15 [History Confirmed 04/30/17] Baicalin/Catechin [Limbrel 250 mg Capsule] 250 mg PO BID 03/15/15 [History Confirmed 04/30/17] Doxazosin Mesylate [Cardura] 1 mg PO QHS 03/15/15 [History Confirmed 04/30/17] Lisinopril [Zestril] 20 mg PO QHS 03/15/15 [History Confirmed 04/30/17] metoprolol succinate ER 25 mg tablet,extended release 24 hr 25 mg PO QHS 04/30/17 [History Confirmed 04/30/17] [facility] Medical History Hypertension (Chronic) Surgical History Cataract extraction status (Inactive) Gynecomastia (Inactive) H/O hernia repair (Inactive) History of tonsillectomy (Inactive) S/P right knee arthroscopy (Inactive) S/P shoulder surgery (Inactive) Family History Father Diabetes Heart disease Hypertension CVA (cerebral vascular accident) Mother Hypertension Cancer Alzheimer's dementia Social History Smoking Status: Never smoker HPI Right knee: Details: CUAUHTEMOC UFCHS is a 66 year old M here today for right knee pain. He received injection and aspiration on 07/08/16 but feels the injection didn't help but aspiration seemed to help with the swelling. He states in November he fell off the ladder and landed on his feet but his right knee went outward as he landed. He complains of constant anterior knee pain with intermittent posterior knee pain. He states when he walks up or down stairs he has to do one step at a time. He denies radiation of pain. No tingling/numbness. He does have swelling. He states he can tell the right leg feels heavier. He denies locking. Denies giving out. Frequently has a grinding in the knee. He generally doesn't take anything for pain. He does wear a knee brace occasionally which does seem to help. ROS Const Reports system reviewed and no additional complaints, except as docu Eyes Reports system reviewed and no additional complaints, except as docu ENT Reports system reviewed and no additional complaints, except as docu Card Reports system reviewed and no additional complaints, except as docu Resp Reports system reviewed and no additional complaints, except as docu GI Reports system reviewed and no additional complaints, except as docu Reports system reviewed and no additional complaints, except as docu Musc Reports joint pain, Reports joint swelling Skin/Breast Reports system reviewed and no additional complaints, except as docu Neuro Yes system reviewed and no additional complaints, except as docu Psych Reports system reviewed and no additional complaints, except as docu Endo Reports system reviewed and no additional complaints, except as docu Benjamín/Lymph Reports system reviewed and no additional complaints, except as docu Aller/Immun Reports system reviewed and no additional complaints, except as docu Ortho Exam Right Knee Contralateral Normal: Yes Swelling: Yes Homans Sign: No 2+: Effusion Knee ROM: Yes ROM-Extension -20 to 0, Yes ROM-Flexion 0-140, Yes ROM-Passive Extension -10 to 0, Yes ROM-Passive Flexion 0-140 Quad Atrophy: No Examination: Med jt line tenderness, Pain with flexion, Pain with extension, Crepitus Stability: NML: Anterior Drawer, NML: Edna, NML: Posterior Drawer, NML: Valgus 0, NML: Valgus 30, NML: Varus 0, NML: Varus 30 Popliteal Adenopathy: No Patella Translation: 1 Apprehension with Lateral Translation: No Patellar Tilt Normal: Yes Patella Grind: No KNEE: Alert and oriented 3 in no acute distress. Appropriate eye contact and affect. Intact from L1-S1 distributions. He has +2 pulses. He continues have a +2 effusion to the knee. Otherwise medically stable. He has a varus deformity. No adenopathy. No popliteal masses. Left Knee Patella Translation: 1 Office Procedures Ortho Aspiration Ortho Injections/Aspirations Yes Knee Right Details: Obtained consent for aspiration. Under sterile conditions, aspirated 30 cc from the patients right knee. The patient tolerated the aspiration well without any noted complications. Patient should call our office if redness develops, pain worsens or if they have any concerns. Ortho Injections Injections Yes Knee Right Details: Obtained consent for injection. Under sterile conditions, injected the patients right knee with a 10cc cocktail of 8cc bupivacaine and 2cc kenalog. The patient tolerated the injection well without any noted complication. Patient should call our office if redness develops, pain worsens or if they have any concerns. Office Meds Diana Performing Provider: Connor Mcclendon DO Administered by: Connor Mcclendon DO on 04/30/17 11:18 Dose Route Admin Location Lot Number Expiration DateND [employer] 2 mg Intra-Articularright knee [id number] 08/04/18 0831-2756-22 iCracked Assessment AND Plan Problems 1. Chronic pain of right knee M25.561; G89.29 2. Other internal derangements of right knee M23.8X1 3. Knee effusion, right M25.461 Plan Assessment: Right knee internal derangement right knee pain right knee effusions recurrent. Plan: At this time patient is requesting aspiration and injection he had 2 weeks of pain after his injection but is willing to try it again. I am not really sure why he had pain after the injection but will follow that. Perhaps he is allergic to the were developed an allergy to some of preservative in the injection material. I think the patient could need a new MRI to evaluate the intra-articular space. He may require new knee scope and synovectomy and/or ultimately a total knee arthroplasty if he has recurrent effusions. He can walk worked up by rheumatology to continue to have recurrent effusions into his knee. I am not really sure how to make that better of an orthopedic standpoint. I think a new MRI to determine if there is any cartilage changes is noted be the next imaging modality. Surgical intervention was planned based off that MRI. For now proceed with injection. Obtained consent for injection. Under sterile conditions, injected the patients right knee with a 10cc cocktail of 8cc bupivacaine and 2cc kenalog. The patient tolerated the injection well without any noted complication. Patient should call our office if redness develops, pain worsens or if they have any concerns. Patient's needle was placed in the superolateral aspect of the knee and the aspirated off roughly 3 36 cc of straw- colored fluid. Appeared simply inflammatory no signs of acute infection. Through that same needle site and injected the cocktail. Compressive wrap applied. Patient will follow- up me in 3 months as needed. Major issues return. Continues to be symptomatic MRI. 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 () 05/01/17 0737 <Electronically signed by Connor Mcclendon DO> Date Connor Mcclendon DO Cosigner Signature: Date (if applicable) CC: ALLERGIES ALLERGIES DATE TYPE / CODE NAME / CODE REACTION SEVERITY SOURCE 03/11/2018 Drug morphine/F006 Nausea Unknown [facility] Allergy/4160 879073([facility]RM Hospital 60687(SNOMED ) Repository CT) 10/23/2017 Drug No Known Unknown [facility] Allergy/4160 Allergies/F00 [facility] 63594(SNOMED 1171875(RXNOR Repository CT) M) ENCOUNTERS ENCOUNTERS ADMIT/DISCHARGE ACCOUNT NUMBER ADMITTING ENCOUNTER LOCATION SOURCE CLASS 03/11/2018/03/11/20 [id number] Ambulatory BMSBuilding: [place] 18 BMS.[facility] Repository 03/02/2018 [id number] Ambulatory [facility] ding:LABSPEC Repository 02/25/2018 [id number] Ambulatory [facility] ding:LAB Repository 02/25/2018 [id number] Ambulatory BMSBuilding: [facility] Repository 01/14/2018 [id number] Ambulatory [facility] ding:MFPLAB Repository 01/08/2018/01/09/20 [id number] Ambulatory BMSBuilding: [place] 18 BMS.[facility] Repository 12/17/2017/12/18/19 [id number] Ambulatory BMSBuilding: [place] 18 BMS.[facility] Repository 12/10/2017/12/11/19 [id number] Ambulatory BMSBuilding: [place] 18 BMS.[facility] Repository 12/02/2017/12/03/19 [id number] Ambulatory [address] ding:SDCRoom Repository : AC06 12/02/2017 [id number] Ambulatory BMSBuilding: [place] BMS.CF.[facility] Repository 12/01/2017 [id number] Ambulatory BMSBuilding: [place] BMS.[facility]. [facility] Repository 11/02/2017/11/03/19 [id number] Emergency [address] ding:ED Repository 10/30/2017 [id number] Ambulatory [facility] ding:LAB.FUT Repository URE 10/28/2017/10/30/19 [id number] MICKEY MALIK, Ambulatory BBuilding:MS WittCatherine 18 THANH [address] URRoom: Health 022Bed: [facility] Repository 10/23/2017 [id number] Ambulatory [facility] ding:MTRAD Repository 10/23/2017/10/24/19 [id number] Ambulatory BMSBuilding: [place] 18 BMS.[facility] Repository 10/20/2017/10/21/19 [id number] Ambulatory CATHERINE [address] ding:OPRS [facility] Repository 09/24/2017 [id number] Ambulatory [facility] ding:HPRAD Repository 09/24/2017/09/25/19 [id number] Ambulatory BMSBuilding: [place] 18 BMS.[facility] Repository 09/23/2017 [id number] Ambulatory [facility] ding:LAB Repository 09/16/2017 [id number] Ambulatory [facility] Repository 09/12/2017 [id number] Ambulatory BMSBuilding: [place] BMS.[facility] Repository 09/08/2017 [id number] Ambulatory [facility] ding:MRI Repository 08/18/2017/08/19/19 [id number] Ambulatory BMSBuilding: [place] 18 BMS.[facility] Repository 08/13/2017/08/14/19 [id number] Ambulatory BMSBuilding: [place] 18 BMS.[facility] Repository 08/06/2017/08/07/19 [id number] Ambulatory [place] [facility] ding:EN Repository 08/06/2017 [id number] Ambulatory BMSBuilding: [place] BMS.CF.[facility] Repository 07/21/2017/07/22/19 [id number] Ambulatory BMSBuilding: [place] 18 BMS.[facility] Repository 04/30/2017/04/30/19 [id number] Ambulatory BMSBuilding: [place] 18 BMS.[facility] Repository PAYERS PAYERS ENCOUNTER GUARANTOR PAYER SUBSCRIBER SOURCE 03/11/2018 CUAUHTEMOC L Primary CUAUHTEMOC L [place] [id number] N Insurance:JACOBO MURPHY: [facility] [place]: [id number] [id number] Repository [address]Mee: (330) Date:8344-29-47[phone] () [place], [place] [address]ZB: 03/11/2018 Secondary NOT GIVENUNK [place] Insurance:SELF PAY [facility] Number: Effective Repository Date:2018-03-11 03/02/2018 CUAUHTEMOC L Primary CUAUHTEMOC L [place] [id number] N Insurance:JACOBO HAGEN: [facility] Number: [id number] [id number] Repository [address]Hwh: 330) Date:7584-34-18TZ [phone] () [place], [place] [address]OM: 03/02/2018 Secondary NOT GIVENUNK [place] Insurance:SELF PAY [facility] Number: Effective Repository Date:2018-03-02 02/25/2018 CUAUHTEMOC L Primary CUAUHTEMOC L [place] [id number] N Insurance:JACOBO HAGEN: [facility] Number: [id number] [id number] Repository [address]Nhm: (330) Date:9364-99-20TG [phone] (HP) [id number] MEL ASKEW [phone]: 02/25/2018 Secondary NOT GIVENUNK [place] Insurance:SELF PAY [facility]: Effective Repository Date:2018-02-25 02/25/2018 CUAUHTEMOC L Primary CUAUHTEMOC L [place] [id number] N Insurance:AETNA CHRISTMANDOB: Community [employer] [facility] [place]: [id number] [id number] Repository [address]Quh: (330) Date:0813-23-71QJ [phone] (HP) [id number] [place] [address]EA: 02/25/2018 Secondary NOT GIVENUNK [place] Insurance:SELF PAY [facility] Number: Effective Repository Date:2018-02-25 01/14/2018 CUAUHTEMOC L Primary CUAUHTEMOC L [place] [id number] N Insurance:AETNA CHRISTMANDOB: Community [employer] [facility] Number: [id number] [id number] Repository [address]Ovp: (330) Date:9649-89-44[phone] (HP) [id number] [place] [address]IF: 01/14/2018 Secondary NOT GIVENUNK [place] Insurance:SELF PAY [facility] Number: Effective Repository Date:2018-01-14 01/08/2018 CUAUHTEMOC L Primary CUAUHTEMOC L [place] [id number] N Insurance:AETNA CHRISTMANDOB: Community [employer] [facility] Number: [id number] [id number] Repository [address]Ico: (330) Date:9778-19-64FI [phone] (HP) [id number] [place] [address]LJ: 01/08/2018 Secondary NOT GIVENUNK [place] Insurance:SELF PAY [facility] Number: Effective Repository Date:2018-01-08 12/17/2017 CUAUHTEMOC L Primary CUAUHTEMOC L [place] [id number] N Insurance:AETNA CHRISTMANDOB: [facility] Number: [id number] [id number] Repository [address]Yzn: (330) Date:5840-83-71AF [phone] () [id number] MEL ASKE[place] [phone]: 12/17/2017 Secondary NOT GIVENUNK [place] Insurance:SELF PAY [facility] Number: Effective Repository Date:2017-12-16 12/10/2017 CUAUHTEMOC L Primary CUAUHTEMOC L [place] [id number] N Insurance:AETNA DREMANDOB: [facility] Number: [id number] [id number] Repository [address]Zuk: (330) Date:6069-98-92EB [phone] (HP) [id number] MEL ASKE[place] [address]WQ: 12/10/2017 Secondary NOT GIVENUNK [place] Insurance:SELF PAY [facility] Number: Effective Repository Date:2017-12-10 12/02/2017 CUAUHTEMOC L Primary CUAUHTEMOC L [place] [id number] N Insurance:AETNA CHRISTMANDOB: [facility] Number: [id number] [id number] Repository [address]Pxl: (330) Date:1196-21-90MH [phone] (HP) [id number] MEL ASKEW [address]TU: 12/02/2017 Secondary NOT GIVENUNK [place] Insurance:SELF PAY [facility] Number: Effective Repository Date:2017-11-26 12/02/2017 CUAUHTEMOC L Primary CUAUHTEMOC L [place] [id number] N Insurance:AETNA CHRISTMANDOB: Community [employer] MCRPolicy Number: [id number] [id number] Repository 11290Wqk: (330) Date:8202-26-69SS [phone] (HP) [phone] LONGO [phone]: 12/02/2017 Secondary NOT GIVENUNK Ezio Insurance:SELF PAY [facility] Number: Effective Repository Date:2017-12-02 12/01/2017 CUAUHTEMOC L Primary CUAUHTEMOC L [place] [id number] N Insurance:AETBINTA MURPHYOB: Formerly [facility] [employer] [facility] Number: [id number] [id number] Repository 76646Ibc: (330) Date:2856-52-26WT [phone] (HP) [id number] MEL SAKEW [phone]: 12/01/2017 Secondary NOT GIVENUNK Ez[place] Insurance:SELF PAY [facility] Number: Effective Repository Date:2017-12-01 11/02/2017 CUAUHTEMOC L Primary CUAUHTEMOC L [place] [id number] N Insurance:JACOBO MURPHYOB: Formerly [facility] [employer] [place] [facility] Number: [id number] [id number] Repository 30798Fln: (330) Date:0327-01-24PD [phone] (HP) [phone] LONGO [phone]: 11/02/2017 Secondary NOT GIVENUNK [place] Insurance:SELF PAY [facility] Number: Effective Repository Date:2017-11-02 10/30/2017 CUAUHTEMOC L Primary CU[place]EMOC L [place] [id number] N Insurance:JACOBO MURPHYOB: Community [employer] [facility] COUNTYPolicy Number: [id number], [place] [id number] Repository [address]Ala: (330) Date:2385-40-12AJ [phone] (HP) [id number] MEL ASKEW [phone]: 10/30/2017 Secondary NOT GIVENUNK [place] Insurance:SELF PAY [facility] Number: Effective Repository Date:2017-10-30 10/28/2017 CUAUHTEMOC L Primary [facility]OC L [facility]AETNA DREMANDOB: [facility] [id number] N MEDICARE O [id number] Repository [employer] [employer] [place] [facility] Number[facility] 0 N [employer] [place] [facility] [place] [id number] [place], [place] [address]Isq: 330) Date:2017-10-16 90375Qew: (HP) [phone] Name:[facility] [address] ()Tel: (000 MEL Askew 0000000 () [phone]: 10/23/2017 CUAUHTEMOC L Primary CUAUHTEMOC L [place] [id number] N Insurance:AETBINTA [facility]: [facility] Number: [id number] [id number] Repository 627[address]Fbp: (330) Date:3645-57-58LG [phone] (HP) [id number] MEL ASKEW [phone]: 10/23/2017 Secondary NOT GIVENUNK [place] Insurance:SELF PAY [facility] Number: Effective Repository Date:2017-10-23 10/23/2017 CUAUHTEMOC L Primary CUAUHTEMOC L [place] [id number] N Insurance:AETNA DREMANDOB: Formerly [facility] [employer] [facility] Number: [id number], [place] [id number] Repository 160[address]Ntn: (330) Date:9939-90-72HL [phone] (HP) [id number] MEL ASKEW [phone]: 10/23/2017 Secondary NOT GIVENUNK [place] Insurance:SELF PAY [facility] Number: Effective Repository Date:2017-10-23 10/20/2017 CUAUHTEMOC L Primary CUAUHTEMOC L [facility] Insurance:AETBINTA MURPHYOB: [facility] [id number] N MEDICARE O [id number] Repository [facility] Number: [address] [place], [place] [id number] [place], [place] [address]Keo: (330) Date:2017-10-16Tel: (HP) [phone] Name:[facility] [address] ()Tel: 000 MEL Askew [phone] () [phone]: 09/24/2017 CUAUHTEMOC L Primary CUAUHTEMOC L [place] [id number] N Insurance:JACOBO MURPHYOB: [facility] Number: [id number] [id number] Repository [address]29[address]Xfa: (330) Date:6981-93-33LH [phone] (HP) [id number] MEL ASKEW [phone]: 09/24/2017 Secondary NOT GIVENUNK [place] Insurance:SELF PAY [facility] Number: Effective Repository Date:2017-09-24 09/24/2017 CUAUHTEMOC L Primary CUAUHTEMOC L [place] [id number] N Insurance:JACOBO MURPHYOB: [facility] Number: [id number], [place] [id number] Repository 47[address]Iwk: (330) Date:2183-94-20HK [phone] () [id number] LONGO [phone]: 09/24/2017 Secondary NOT GIVENUNK [place] Insurance:SELF PAY [facility] Number: Effective Repository Date:2017-09-24 09/23/2017 CUAUHTEMOC L Primary CUAUHTEMOC L [place] [id number] N Insurance:AETNA CHRISTMANDOB: Formerly [facility]Policy Number: [id number] [place], [place] [id number] Repository [address]95[address]Ptb: (330) Date:3957-44-21ZF [phone] (HP) [id number] MEL ASKEW [phone]: 09/23/2017 Secondary NOT GIVENUNK [place] Insurance:SELF PAY [facility] Number: Effective Repository Date:2017-09-23 09/16/2017 CUAUHTEMOC L Primary CUAUHTEMOC L [place] [id number] N Insurance:AETNA CHRISTMANDOB: Formerly [facility] Number: [id number], [place] [id number] Repository 30[address]Zyp: Date:6501-37-13RW [phone] JAMILAH [place] -4 (HP) [phone]: 09/16/2017 Secondary NOT GIVENUNK [place] Insurance:SELF PAY [facility] Number: Effective Repository Date:2017-09-16 09/12/2017 CUAUHTEMOC L Primary CUAUHTEMOC L [place] [id number] N Insurance:AETNA DREMANDOB: [facility] Number: [id number] [id number] Repository [address]44[address]Kuj: Date:3397-32-74PV [phone] [id number] JAMILAH [facility]4 () [phone]: 09/12/2017 Secondary NOT GIVENUNK [place] Insurance:SELF PAY [facility] Number: Effective Repository Date:2017-09-05 09/08/2017 CUAUHTEMOC L Primary CUAUHTEMOC L [place] [id number] N Insurance:AETNA DREMANDOB: [facility]ly [facility] Number: [id number] [place], [place] [id number] Repository 86[address]Lxi: (330) Date:0244-78-73WK [phone] (HP) [id number] MEL ASKEW [phone]: 09/08/2017 Secondary NOT GIVENUNK [place] Insurance:SELF PAY [facility] Number: Effective Repository Date:2017-09-05 08/18/2017 CUAUHTEMOC L Primary CUAUHTEMOC L [place] [id number] N Insurance:AETBINTA MURPHYOB: Community [employer] [facility]Policy Number: [id number] [place], [place] [id number] Repository [address]Jai: Date:9679-11-41RA [phone] [id number] LONGO -4 (HP) [phone]: 08/18/2017 Secondary NOT GIVENUNK [place] Insurance:SELF PAY [facility] Number: Effective Repository Date:2017-08-18 08/13/2017 CUAUHTEMOC L Primary CUAUHTEMOC L [place] [id number] N Insurance:AETBINTA MURPHYOB: [facility] Number: [id number], [place] [id number] Repository 05[address]Hyx: Date:9180-66-60LU [phone] [id number] LONGO -4 (HP) [phone]: 08/13/2017 Secondary NOT GIVENUNK [place] Insurance:SELF PAY [facility] Number: Effective Repository Date:2017-08-13 08/06/2017 CUAUHTEMOC L Primary CUAUHTEMOC L [place] [id number] N Insurance:WENDITBINTA MURPHYOB: [facility] Number: [id number] [id number] Repository 84544Qjg: Date:3120-11-25MI [phone] [id number] MEL ASKEW -4 (HP) [phone]: 08/06/2017 Secondary NOT GIVENUNK [place] Insurance:SELF PAY [facility] Number: Effective Repository Date:2017-07-21 08/06/2017 CUAUHTEMOC L Primary CUAUHTEMOC L [place] [id number] N Insurance:AETNA CHRISTMANDOB: Community [employer] MCRPolicy Number: [id number], [place] [id number] Repository [address]Taa: Date:7476-06-88MF [phone] [id number] MEL ASKEW4 () [phone]: 08/06/2017 Secondary NOT GIVENUNK [place] Insurance:SELF PAY [facility] Number: Effective Repository Date:2017-08-06 07/21/2017 CUAUHTEMOC L Primary CUAUHTEMOC L [place] [id number] N Insurance:ANTHEMPolic CHRISTMANDOB: Community [employer] y Number: [id number] [id number] Repository 179[address]Pjo: Date:9900-01-01EB [phone] [id number], [place] -4 () [address]TC: 07/21/2017 Secondary NOT GIVENUNK [place] Insurance:SELF PAY [facility] Number: Effective Repository Date:2017-07-21 04/30/2017 CUAUHTEMOC L Primary CUAUHTEMOC L [place] [id number] N Insurance:ANTHEMPolic CHRISTMANDOB: Community [employer] y Number: [id number], [place] [id number] Repository 28[address]Odz: Date:0597-76-02YU [phone] [id number], [place] -4 () [address]AX: 04/30/2017 Secondary NOT GIVENUNK [place] Insurance:SELF PAY [facility] Number: Effective Repository Date:2017-04-29
== END ==
PROVIDERS: Family Provider Family Medicine; PCP Family Medicine; Referring Provider Otolaryngology; Visit Provider Otolaryngology
DX: D23.21 Other benign neoplasm of skin of right ear and external auricular canal (principal)
CPT/HCPCS: 88305

== ENCOUNTER 2018-04-13 14:05 | Outpatient (RCR) | payer MEDICARE, SELFPAY ==
[2018-03-11 10:58] VITALS: BMI 27.1
--- NOTE | 2018-04-13 14:46 | HP.PTEVAL ---
Patient's Visit Information CUAUHTEMOC FUCHS is a 67 year old M referred to Physical Therapy by CLYDE Mcmanus with a diagnosis of TKR. Date of Evaluation: 04/13/18 Physical Therapist: Kathie Samuel DPT - Subjective Findings: Total knee replacement on the right in October- had home therapy and was not recommended to go to outpatient. Saw the PA who was suprised that he was not doing therapy. He has good ROM in the knee. Does pretty much everything including getting on the floor with the grandchildren but its harder to get up then it use to be. Has a little bit of pain in the back of the knee but feels its normal. Uses an exercise bike at home. Has 4 horses and is doing all of the things that they require. Worst: 2/10 Best: 0/10. Most of the time painfree. Agg: moving the wrong way or sitting to long and its a little stiff then it goes away. Feels like he is 80% back to all normal activities. Split longs yesterday- Sleep: not disturbed. PMHx/Meds: no changes since he saw him. - Objective Posture: good throghout. Gait: no deviation noted. Stairs: asc/desc 8 recip no deficit and no HR. Squat: mild weight shift to the left. SLS: 30 sec without LOB. HR/TR: able. Palpation: not tender. Strength: 5/5 throughout LE. ROM: 0-125 degrees. Flex:hs: mild. Transfer: up from floor without A - Rehabilitation Potential Physical Therapy Diagnosis: Patient is fully functional with all ADL's and recreational activities. He has full ROM and strength and is not appropriate for PT at this time. Will continue gym program at [employer]. Rehabilitation Potential: Excellent - Anticipated Interventions Thank you for the opportunity to evaluate your patient. For Medicare and Medicare HMO plans, please review the plan of care and approve it. It will need to be FAXED BACK to us at [phone] for Medicare purposes. For Medicare only, by signing this I certify the plan of care. Please let me know if there are questions or concerns regarding this plan of care. Physician Signature: Date:
--- NOTE | 2018-06-02 09:56 | HP.PT.NRP ---
HP - Discharge Summary (1) - Patient Information CUAUHTEMOC FUCHS was seen in my office for initial evaluation on 04/13/18. The following Plan of Care was established for this patient: This patient was last seen in our office . Pertinent comments regarding their Physical therapy will appear below: At this point I will be discontinuing this patient from physical therapy. I would be happy to see this patient again in the future if found appropriate by the physician. Thank you! ROSSY KnightT
== END 2018-04-13 19:00 | disposition home or self-care (01) ==
LOC: PT 14:05
PROVIDERS: Family Provider Family Medicine; PCP Family Medicine; Referring Provider Physician Assistant Surgical; Visit Provider Physician Assistant Surgical
DX: Z96.651 Presence of right artificial knee joint (principal); Z09 Encounter for follow-up examination after completed treatment for conditions other than malignant neoplasm
CPT/HCPCS: 97161

== ENCOUNTER → 2018-06-29 12:26 | Outpatient (CLI) | payer MEDICARE, SELFPAY ==
[2018-03-11 10:58] VITALS: BMI 27.1
[2018-06-29 13:54] LABS: Absolute Lymphocyte Count 1.37 X10^3/ul (0.83-4.51); Absolute Neutrophil Count 5.3 X10^3/uL (2.0-7.7); Basophil# 0.02 X10^3/uL; Basophil% 0.3 % (0-1); Eosinophil# 0.12 X10^3/uL; Eosinophils% 1.6 % (0-5); Hematocrit 48.3 % (40-54); Hemoglobin 15.8 g/dl (13.0-16.5); Lymphocyte # 1.37 X10^3/ul (4.0); Lymphocyte % 18.6 % (19-41); Mean Corp Hgb Conc 32.7 g/gl (32-36); Mean Corpuscular Hgb 30.9 pg (27.0-32.0); Mean Corpuscular Volume 94.5 fL (80-94); Mean Platelet Vol. 11.4 fl (6.2-12.0); Monocyte# 0.52 X10^3/uL; Monocyte% 7.1 % (0-10); Neutrophil # 5.32 X10^3/uL (2.7-7.7); Neutrophil % 72.3 % (47-70); Platelet Count 160 K/mm3 (150-450); RBC Distribution Width SD 43.6 fl (35.1-43.9); Red Blood Count 5.11 M/mm3 (4.6-6.2); White Blood Count 7.4 K/mm3 (4.4-11.0)
[2018-06-29 14:03] LABS: ALB/GLOB Ratio 1.4 RATIO (0.9-2.4); AST(SGOT) 17 U/L (15-37); Alanine Aminotransfer ALT/SGPT 23 U/L (16-61); Alkaline Phosphatase 84 U/L (45-117); Anion Gap 6 (5-15); BUN 15 mg/dL (7-18); BUN/Creat Ratio 14.7 RATIO (10-20); CRP 4.68 mg/L (0.0-3.0); Calcium,Total 8.7 mg/dL (8.5-10.1); Chloride 108 mmol/L (98-107); Creatinine, Serum 1.02 mg/dL (0.70-1.30); EST Glomerular Filtration Rate 78 mL/min (>60); Est Glom Filt Rate - Afr Amer 94 mL/min (>60); Globulin 2.8 g/dL (2.2-4.2); Glucose 97 mg/dL (74-106); Lipase 122 U/L (73-393); Potassium 4.3 mmol/L (3.5-5.1); Protein, Total 6.8 g/dL (6.4-8.2); Sodium Level 141 mmol/L (136-145)
[2018-06-29 14:06] LABS: POSITIVE COUNT NO; POSITIVE DIFFERENTIAL NO; POSITIVE MORPHOLOGY NO
== END ==
PROVIDERS: Family Provider Family Medicine; PCP Family Medicine; Referring Provider Family Medicine; Visit Provider Family Medicine
DX: R10.13 Epigastric pain (principal)
CPT/HCPCS: 36415; 80053; 83690; 85025; 86140

== ENCOUNTER → 2018-07-09 08:26 | Outpatient (CLI) | payer MEDICARE, SELFPAY ==
[2018-03-11 10:58] VITALS: BMI 27.1
--- NOTE | 2018-07-09 08:33 | RAD_ITS ---
STUDY: AIR-CONTRAST UPPER GI SERIES. REASON FOR EXAM: Male, 68 years old. Post prandial abdominal bloating. FLUOROSCOPY TIME (if supplied): (2:12) minutes/seconds. 15 fluoroscopic images were obtained. TECHNIQUE: The patient ingested barium. Multiple images of the esophagus, stomach and duodenum were obtained. Following this, a small bowel follow-through examination was obtained. COMPARISON: None. FINDINGS: The esophagus is unremarkable. There is evidence of a small sliding hiatal hernia without gastroesophageal reflux. The stomach and duodenum are unremarkable. No evidence of ulceration or mass lesion. A small bowel follow-through examination was then performed. The transit time is normal. There is no evidence of extrinsic or intrinsic small bowel disease. RAD/Upper GI/w Small Bowel IMPRESSION: Small sliding hiatal hernia without esophageal reflux. Electronically Signed: Dhruv Goyal, at 15:51 EDT , Service support ,
== END ==
PROVIDERS: Family Provider Family Medicine; PCP Family Medicine; Referring Provider Family Medicine; Visit Provider Family Medicine
DX: R10.13 Epigastric pain (principal)
CPT/HCPCS: 74249

== ENCOUNTER 2018-07-27 09:31 | Day surgery (SDC) | payer MEDICARE, SELFPAY ==
[2018-07-14 08:59] VITALS: BMI 27.1
[2018-07-27 10:00] VITALS: PULSE 66; RESP 18; TEMP 36.6; O2SAT 100; BMI 28.6
[2018-07-27 10:27] VITALS: BP 96/65; PULSE 68; RESP 18; TEMP 36.5; O2SAT 92
--- NOTE | 2018-07-27 10:29 | OP.ENDO_ITS ---
07/27/2018 Hammad Burr [address] [place] [address] Re : Upper GI endoscopy procedure for Lalito Isai Dear Dr. Burr This procedure was performed on Friday, July 27, 2018. My impressions and recommendations are as follows: Impressions : - LA Grade A reflux esophagitis. Rule out Wesley's esophagus. Biopsied. - Normal stomach. - Normal examined duodenum. Recommendations : - Await pathology results. - Repeat upper endoscopy in 3 months for surveillance. - Return to my office in 1 week. - Continue present medications. My findings are described in the full procedure note, which is enclosed. If I can be of further assistance, please feel free to contact me at Doctor phone number(s): , Fax: [phone], Work: . Sincerely, MD Jerson Cosby MD 07/27/2018 10:29:21 AM This report has been signed electronically.
[2018-07-27 10:30] VITALS: BP 111/92; PULSE 63; RESP 16; O2SAT 94
--- NOTE | 2018-07-27 10:30 | EGD_PTH ---
PATIENT: CUAUHTEMOC FUCHS LOC: EN U#:[id number] AGE/SX: 68/M ROOM: RE07/27/[address]: Dr. Jerson Buckley MD : 1950 BED: DIS: 07/27/2018 SPEC #: [id number] RECD: 07/27/18 10:51 STATUS: MOHIT SHERIDAN #: [id number] KATELYN: 07/27/18 10:[address]: Jerson Buckley DEPT: SURGICAL PATHOLOGY RECD BY: Kj Rivers ENTERED: 07/27/18 11:23 SP TYPE: EGD BIOPSY OT DR: Dr. Hammad Burr MD Tissues: Esophageal mucous membrane Procedures: Special Stain Group I Surgery Specimen Level IV GMS Stain (control) HEADER OPERATION: EGD (MAC) PRE-OP DIAGNOSIS: Esophageal dysphagia, abdominal bloating TISSUE SUBMITTED: Biopsy distal esophagus MICROSCOPIC DIAGNOSIS Distal esophagus, biopsy: Focal ulceration with associated acute and chronic inflammation and fibrinopurulent material. Positive for fungal organisms consistent with Zari species. See comment. AM:kade 07/28/18 COMMENT GMS stain with matched control supports the above diagnosis. MICROSCOPIC DESCRIPTION Slides are reviewed. GROSS DESCRIPTION Received in fixative is one container labeled with the patient's name and designated biopsy distal esophagus. The specimen consists of multiple irregular fragments of light fatima soft tissue that in aggregate measure 1.5 x 0.2 x 0.1 cm. The specimen is totally submitted in one cassette. / SJ:kade 07/27/18 TC:2 CPT: 96802, 28819
[2018-07-27 10:35] VITALS: BP 111/70; PULSE 64; RESP 16; O2SAT 93
[2018-07-27 10:40] VITALS: BP 119/73; PULSE 61; RESP 16; O2SAT 93
[2018-07-27 10:43] VITALS: BP 115/77; PULSE 56; RESP 16; TEMP 36.4; O2SAT 93
== END 2018-07-27 11:20 | disposition home or self-care (01) ==
LOC: EN 09:32
PROVIDERS: Family Provider Family Medicine; PCP Family Medicine; Referring Provider Surgery; Visit Provider Surgery
PROC: 0DJ08ZZ Inspection of Upper Intestinal Tract, Via Natural or Artificial Opening Endoscopic (ICD-10-PCS; CPT 43235; principal; 2018-07-27 10:25)
DX: K21.0 Gastro-esophageal reflux disease with esophagitis (principal); R13.14 Dysphagia, pharyngoesophageal phase; R14.0 Abdominal distension (gaseous); I10 Essential (primary) hypertension
CPT/HCPCS: 43239; 88305; 88312; J7120; J1610

== ENCOUNTER → 2019-02-11 11:36 | Outpatient (CLI) | payer MEDICARE, SELFPAY ==
[2019-01-14 14:55] VITALS: BMI 28.6
[2019-02-11 14:55] LABS: Anion Gap 7 (5-15); BUN 18 mg/dL (7-18); BUN/Creat Ratio 17.6 RATIO (10-20); Calcium,Total 8.8 mg/dL (8.5-10.1); Chloride 107 mmol/L (98-107); Cholesterol 159 mg/dL (200); Creatinine, Serum 1.02 mg/dL (0.70-1.30); EST Glomerular Filtration Rate 78 mL/min (>60); Est Glom Filt Rate - Afr Amer 94 mL/min (>60); Glucose 98 mg/dL (74-106); High Density Lipoprotein 60 mg/dL; PSA,Total - Annual Screen 1.16 ng/mL (0.00-4.00); Potassium 3.9 mmol/L (3.5-5.1); Sodium Level 141 mmol/L (136-145); Triglycerides 45 mg/dL; Very Low Density Lipoprotein 9 mg/dL (5-40)
== END ==
PROVIDERS: Family Provider Family Medicine; PCP Family Medicine; Referring Provider Family Medicine; Visit Provider Nurse Practitioner Family
DX: Z00.00 Encounter for general adult medical examination without abnormal findings (principal); Z12.5 Encounter for screening for malignant neoplasm of prostate
CPT/HCPCS: 36415; 80048; 80061; 84153; G0103

== ENCOUNTER → 2019-07-02 12:42 | Outpatient (CLI) | payer MEDICARE, SELFPAY ==
--- NOTE | 2019-07-02 | LES_PTH ---
PATIENT: CUAUHTEMOC FUCHS [facility] U#:[id number] AGE/SX: 74/M ROOM: RE07/02/[address]: Dr. Gunner Ball MD : 1950 BED: DIS: SPEC #: [id number] RECD: 07/02/19 12:21 STATUS: MOHIT SHERIDAN #: [id number] KATELYN: 07/02/19 00:[address]: Gunner Ball DEPT: SURGICAL PATHOLOGY RECD BY: Kj Rivers ENTERED: 07/02/19 13:25 SP TYPE: Lesion OTHR DR: Dr. Hammad Burr MD Tissues: A - Skin of forehead B - Skin of face, NOS C - Skin of neck, NOS D - Skin of external ear, NOS E - Skin of face, NOS F - Skin of neck, NOS Procedures: Surgery Specimen Level IV HEADER OPERATION: Shave biopsies, excision lesions PRE-OP DIAGNOSIS: Enlarged lesions; family history of melanoma TISSUE SUBMITTED: A - Right lateral forehead, B - Left upper cheek by sideburn, C - Right upper neck (cutaneous horn), D - Right lower lateral cheek by earlobe, E - Right lower lateral cheek by jawline, F - Left upper neck by jawline MICROSCOPIC DIAGNOSIS A. Skin of right lateral forehead, shave biopsy: Actinic keratosis. Solar elastosis. See comment. B. Left upper cheek by sideburn, shave biopsy: Actinic keratosis, mildly inflamed. C. Skin lesion, right upper neck, shave biopsy: Consistent with verrucoid keratosis with associated cutaneous horn. D. Skin lesion, right lower lateral cheek by earlobe, shave biopsy: Seborrheic keratosis. E. Skin lesion, right lower lateral cheek by jawline, shave biopsy: Actinic keratosis with focal changes of seborrheic keratosis. Solar elastosis. Mild chronic inflammation. F. Skin lesion, left upper neck by jawline, shave biopsy: Seborrheic keratosis with features of actinic keratosis. Solar elastosis. AM:kade 07/05/19 COMMENT A. The actinic keratosis contains seborrheic keratosis-like features. MICROSCOPIC DESCRIPTION Slides are reviewed. GROSS DESCRIPTION A - Received in fixative is one container labeled with the patient's name and designated right lateral forehead. The specimen consists of a light fatima shave biopsy of skin measuring 5 cm in diameter and 0.1 cm in thickness. The specimen is totally submitted in one cassette. B - Received in fixative is one container labeled with the patient's name and designated left upper cheek. The specimen consists of a light fatima shave biopsy of skin measuring 0.4 cm in diameter and 0.1 cm in thickness. The specimen is totally submitted in one cassette. C - Received in fixative is one container labeled with the patient's name and designated right upper neck. The specimen consists of an irregular fragment of light fatima soft tissue measuring 0.2 x 0.2 x 0.1 cm. The specimen is totally submitted in one cassette. D - Received in fixative is one container labeled with the patient's name and designated right lower lateral cheek. The specimen consists of a light fatima shave biopsy of skin measuring 0.8 cm in diameter and 0.1 cm in thickness. The specimen is totally submitted in one cassette. E - Received in fixative is one container labeled with the patient's name and designated right lower lateral cheek. The specimen consists of a light fatima shave biopsy of skin measuring 0.8 x 0.6 x 0.1 cm. The specimen is totally submitted in one cassette. F - Received in fixative is one container labeled with the patient's name and designated left upper neck. The specimen consists of a light fatima shave biopsy of skin measuring 0.8 x 0.6 x 0.1 cm. The specimen is totally submitted in one cassette. / AM:kaed 07/02/19 TC:5 CPT: 52080 x6
[2019-07-02 10:35] VITALS: BMI 28.6
== END ==
PROVIDERS: PCP Family Medicine; Referring Provider Surgery; Visit Provider Surgery
DX: L57.0 Actinic keratosis (principal); L57.8 Other skin changes due to chronic exposure to nonionizing radiation; Z80.7 Family history of other malignant neoplasms of lymphoid, hematopoietic and related tissues
CPT/HCPCS: 88305

== ENCOUNTER 2019-07-14 13:20 | Inpatient (IN) | payer MEDICARE, SELFPAY ==
[2019-07-02 10:35] VITALS: BMI 28.6
[2019-07-14] VITALS (7 sets, daily range): BP systolic 135–146; BP diastolic 69–77; PULSE 65–71; RESP 18; TEMP 36.8–37.2; O2SAT 95–97; BMI 29.0; BMI 27.5
--- NOTE | 2019-07-14 13:44 | ED.VIS.GEN ---
History of Present Illness Chief Complaint: Bite Detail of Chief Complaint: Cat bite right hand Informant: Patient Onset: Days Context: Gradual Onset Current Severity: Moderate Maximum Severity: Moderate Narrative: Patient presents secondary to a cat bite. He will was bit by his pet cat on Friday evening, 2 days ago. Yesterday he was seen by PCP and started on amoxicillin. Patient is known to Dr. Ball and stop by his office to check on some results from skin biopsy and Dr. Ball noted the erythema of the patient's hand. He told the patient that if the redness spreads outside the outlined area he should call him. He did notice that the erythema had expanded today and called Dr. Ball who advised him to come to the emergency room for admission. - Past Medical History (1) Hypertension Status: Chronic Past Medical History - Allergies and Home Meds Allergies/Adverse Reactions: Allergies amlodipine [From Norvasc] Allergy (Unknown, Verified 07/14/19 13:21) Unknown atenolol Allergy (Unknown, Verified 07/14/19 13:21) Unknown ketoprofen [From Orudis] Allergy (Unknown, Verified 07/14/19 13:21) Unknown morphine Adverse Reaction (Verified 07/14/19 13:21) Nausea Primary Care Physician: Hammad Burr MD [Primary Care Provider] - Doctors: Dr Ball Smoking Status: Never smoker - Family History Maternal Family History: Family History (Last Reviewed 07/02/19 @ 10:33 by Yakelin Lee) Father Diabetes Heart disease Hypertension CVA (cerebral vascular accident) Mother Hypertension Cancer Alzheimer's dementia Anesthesia complication Breast cancer Family History: Reports: No pertinent history Review of Systems General: Denies: Chills, Fever Eyes: Denies: Visual changes - bilaterally ENT: Denies: Bilateral ear pain Cardiovascular: Denies: Chest pain Respiratory: Denies: Dyspnea, Cough Gastrointestinal: Denies: Abdominal pain, Nausea, Vomiting, Diarrhea Genitourinary: Denies: Dysuria Musculoskeletal: Reports: Swelling, Extremity Pain Skin: Reports: Wounds Neurological: Denies: Headache, Parasthesia, Numbness Hematologic: Denies: Easy bruising Allergy: Denies: Uticaria Physical Exam Vital Signs/Narrative: Vital Signs Temp Pulse Resp BP Pulse Ox 07/14/19 13:22 99.0 F 71 18 138/70 H 95 Inital Vital Signs reviewed: Yes General: Well nourished, Well developed Head: Normocephalic ENT: Moist mucous membranes Neck: Supple Cardiovascular: Regular rate, Regular rhythm Respiratory: No distress, CTA bilaterally Abdomen: Soft, Nontender Skin: - - Patient has 5 small scabbed wounds to the back of the right hand. There is surrounding erythema extending onto the distal forearm. He has slight decreased range of motion of his fingers. Good cap refill and sensation noted distally. No focal sign of abscess. Neurological: Alert, Oriented x3 Psychological: Normal affect Diagnostic/Tx/Re-eval Impressions Hand X-Ray 07/14/19 14:40 IMPRESSION: Soft tissue swelling. Electronically Signed: Dhruv Goyal, at 14:57 EDT , Service support , 07/14/19 14:40 Hand Min 3 Views [RAD] Stat Laboratory Results 07/14/19 07/14/19 14:05 14:05 WBC 7.1 RBC 4.76 Hgb 14.4 Hct 44.1 MCV 92.6 MCH 30.3 MCHC 32.7 RDW Std Deviation 42.9 RDW Coeff of Debbi 12.5 Plt Count 156 MPV 10.4 Immature Gran % (Auto) 0.300 Neut % (Auto) 75.0 H Lymph % (Auto) 16.0 L [place] % (Auto) 7.3 Eos % (Auto) 1.1 Baso % (Auto) 0.3 Absolute Neuts (auto) 5.3 Absolute Lymphs (auto) 1.13 Nucleated RBC % 0 Sodium 139 Potassium 4.4 Chloride 109 H Carbon Dioxide 27.0 Anion Gap 3 L BUN 22 H Creatinine 1.13 Estim Creat Clear Calc 59.31 Est GFR (MDRD) Af Amer 83 Est GFR (MDRD) Non-Af 69 BUN/Creatinine Ratio 19.5 Glucose 105 Calcium 8.7 - Medical Decision Making Patient was given a dose of Unasyn. Test results are discussed with Dr. Ball. Patient will be admitted to his service. ED Disposition - Plan for ED Patient: Disposition[facility] Diagnosis: Cat bite Referrals: Hammad Burr MD [Primary Care Provider] -
[2019-07-14 14:24] LABS: Absolute Lymphocyte Count 1.13 X10^3/uL (0.83-4.51); Absolute Neutrophil Count 5.3 X10^3/uL (2.0-7.7); Basophil# 0.02 X10^3/uL; Basophil% 0.3 % (0-1); Eosinophil# 0.08 X10^3/uL; Eosinophils% 1.1 % (0-5); Hematocrit 44.1 % (40-54); Hemoglobin 14.4 g/dL (13.0-16.5); Lymphocyte # 1.13 X10^3/ul (4.0); Mean Corp Hgb Conc 32.7 g/dL (32-36); Mean Corpuscular Hgb 30.3 pg (27.0-32.0); Mean Corpuscular Volume 92.6 fL (80-94); Mean Platelet Vol. 10.4 fl (6.2-12.0); Monocyte# 0.52 X10^3/uL; Monocyte% 7.3 % (0-10); NRBC Flagged by Analyzer 0 % (0-5); Neutrophil # 5.31 X10^3/uL (2.7-7.7); Platelet Count 156 K/mm3 (150-450); RBC Distribution Width CV 12.5 % (11.6-14.6); RBC Distribution Width SD 42.9 fl (35.1-43.9); Red Blood Count 4.76 M/mm3 (4.6-6.2); White Blood Count 7.1 K/mm3 (4.4-11.0)
[2019-07-14 14:36] LABS: Anion Gap 3 (5-15); BUN 22 mg/dL (7-18); BUN/Creat Ratio 19.5 RATIO (10-20); Calcium,Total 8.7 mg/dL (8.5-10.1); Chloride 109 mmol/L (98-107); Creatinine, Serum 1.13 mg/dL (0.70-1.30); EST Glomerular Filtration Rate 69 mL/min (>60); Est Glom Filt Rate - Afr Amer 83 mL/min (>60); Estimated Creatinine Clearance 59.31 ml/min; Glucose 105 mg/dL (74-106); Potassium 4.4 mmol/L (3.5-5.1); Sodium Level 139 mmol/L (136-145)
--- NOTE | 2019-07-14 14:40 | RAD_ITS ---
STUDY: X-RAY - RIGHT HAND REASON FOR EXAM: Male, 69 years old. Cat bite to posterior surface of hand on Friday, now very red and swollen TECHNIQUE: 3 view(s) of the hand. COMPARISON: None. FINDINGS: Normal radiocarpal articulation. Normal distal radioulnar joint. Normal visualized carpal bones. Normal carpal articulations Normal carpometacarpal articulation of the thumb. Normal second through fifth carpometacarpal joints. Normal metacarpi. Normal metacarpophalangeal joint of the thumb. Normal interphalangeal joint of the thumb. Normal proximal and distal phalanges of the thumb. Normal metacarpophalangeal joints of the second through fifth fingers. Normal proximal and distal interphalangeal joints of the second through fifth fingers. Normal phalanges of the second through fifth fingers. Soft tissue swelling. No radiopaque foreign body is seen. RAD/Hand Min 3 Views IMPRESSION: Soft tissue swelling. Electronically Signed: Dhruv Goyal, at 14:57 EDT , Service support ,
--- NOTE | 2019-07-14 15:03 | NURSING ---
MED SURG SLABY CAT BITE
--- NOTE | 2019-07-14 18:37 | HP.PCM_ITS ---
History and Physical Date of Admission: 07/14/19 HISTORY OF PRESENT ILLNESS 69 year old man presents with a worsening cat bite dorsum right hand that he sustained 2 days ago from his pet cat. He went to his PCP yesterday who placed him on Augmentin. The pain and redness and swelling worsened over the next 24 hours, and it was recommended he go to the ED for evaluation. X-ray was done which showed no fracture and no foreign body. He failed outpatient therapy and he was admitted for IV antibiotics and evaluation for possible surgical inter vention. He is right hand dominant. His WBC on admission was 7.1. PAST MEDICAL HISTORY Cataracts, bilateral Hearing problem Heart murmur Hypertension PAST SURGICAL HISTORY lateral meniscus repair of right knee cataract extraction gynecomastia surgery hydrocelectomy inguinal herniorrhaphy shoulder surgery tonsillectomy and adenoidectomy colonoscopy right knee arthroscopy right total knee surgery Excision 1 cm mucous cyst left long finger on the radial aspect at the DIP joint - 12/02/17 ALLERGIES morphine MEDICATIONS Doxazosin Mesylate [Cardura] Lisinopril [Zestril] metoprolol succinate ER Amoxicillin Esomeprazole Imiquimod FAMILY HISTORY Father - Diabetes, Heart disease, Hypertension, CVA (cerebral vascular accident) Mother - Hypertension, Cancer, Alzheimer's dementia, Anesthesia complication, Breast cancer SOCIAL HISTORY Smoking Status: Never smoker alcohol intake: never substance use type: does not use REVIEW OF SYSTEMS General - Denies fever, fatigue, and weight loss. Eyes - Denies cataracts and glaucoma. ENT - Denies nasal congestion and sore throat. Endocrine - Denies excessive thirst and urination. Skin - Denies suspicious lesions and skin cancer. Has infected cat bite dorsum right hand. Musculoskeletal - Denies joint pain, joint stiffness, weakness of muscles and joints, back pain, and arthritis. On the dorsum left long finger on the radial aspect at the DIP joint is a mucous cyst with nail grooving. Neuro - Denies headaches. Cardiovascular - Denies chest pain, fatigue, and shortness of breath with exertion. Psych - Denies anxiety and depression. Respiratory - Denies chronic cough and shortness of breath. Gastrointestinal - Denies nausea, vomiting, diarrhea, and constipation. Hematologic - Denies abnormal bruising and bleeding. Genitourinary - Denies hematuria and urinary frequency. PHYSICAL EXAMINATION General - Alert and Oriented HEENT - PERRL. EOMI. Throat is clear. Neck - Supple and nontender. No cervical adenopathy. Lungs - Clear to auscultation. Heart - Regular rate and rhythm. Abdomen - Soft and nondistended. Extremities - FROM. No axillary adenopathy. Radial pulses are palpable. On the dorsum right hand are multiple cat bite wounds. Redness over the dorsum extending to the wrist. MP joints are not involved. Mild swelling noted. No fluctuance. No purulent drainage. Flexion and extension are intact. No sensory deficits. Fingers are warm with good capillary refill. He can almost make a fist with limitation secondary to pain and swelling. [employer] strength slightly decreased. Wrist range of motion nontender. Forearm is nontender. Patient is right hand dominant. Neuro - CN II-XII grossly intact. Psych - Normal mood and affect. ASSESSMENT Cat bite infection dorsum right hand with cellulitis. PLAN X-ray reviewed. No fracture and no foreign body. Begin IV antibiotics with Unasyn. Keep right hand elevated. Will keep npo in the morning until evaluated. If the redness continues to worsen despite IV antibiotics, then he would need operative intervention with incision and drainage and excisional debridement of the cat bite wounds dorsum right hand. Would leave the wounds open and begin daily Silver dressing changes. If there is worsening, a CT scan would be obtained preoperatively. If there is improvement, would continue the IV Unasyn for an additional day. At which time we can switch to po Augmentin in preparation for discharge. Would followup office one week after discharge. Encourage range of motion exercises to minimize stiffness. Patient was informed of the risks and complications of the procedure including alternatives to surgery. These were discussed with the patient personally. Patient voices understanding and wishes to proceed with the current plan of IV antibiotics and close observation. Patient understands that surgery may be necessary. Some of the risks and complications that were discussed included but were not inclusive of failure to diagnose including symptom relief, pain, infection, numbness, stiffness, loss of digit, RSD (CRPS), need for further surgery, contracture, nail deformity and wound healing problems. Inpatient E&M: 36777 Init Hosp L2 - ICD-10 - W55.01xA, S61.451A, L03.113
[2019-07-14] MEDS: Lactated Ringers 1,000 ML 60 ML IV (20:24)
[2019-07-14] MEDS: 0.9% Saline Lock 10 ML Syringe IV ×2 (20:30→22:38)
[2019-07-14] MEDS: Metoprolol(XL)Succ 25 MG Tablet 12.5 MG PO (22:19)
[2019-07-14] MEDS: Doxazosin 1 MG Tablet PO (22:20)
[2019-07-14] MEDS: Lisinopril 20 MG Tablet PO (22:20)
[2019-07-15 04:00] VITALS: BP 132/75; PULSE 60; RESP 16; TEMP 36.9; O2SAT 94
[2019-07-15] MEDS: 0.9% Saline Lock 10 ML Syringe IV ×2 (06:32→17:10)
[2019-07-15 07:00] LABS: Erythrocyte Sedimentation Rate 12 mm/hr (0-20)
[2019-07-15 07:03] LABS: Hematocrit 43.8 % (40-54); Hemoglobin 14.5 g/dL (13.0-16.5); Mean Corp Hgb Conc 33.1 g/dL (32-36); Mean Corpuscular Hgb 30.9 pg (27.0-32.0); Mean Corpuscular Volume 93.2 fL (80-94); Mean Platelet Vol. 10.6 fl (6.2-12.0); Platelet Count 162 K/mm3 (150-450); RBC Distribution Width CV 12.3 % (11.6-14.6); RBC Distribution Width SD 42.5 fl (35.1-43.9); White Blood Count 7.7 K/mm3 (4.4-11.0)
[2019-07-15 07:43] LABS: ALB/GLOB Ratio 1.1 RATIO (0.9-2.4); AST(SGOT) 17 U/L (15-37); Alanine Aminotransfer ALT/SGPT 24 U/L (16-61); Albumin, Serum 3.2 g/dL (3.2-5.0); Alkaline Phosphatase 75 U/L (45-117); Anion Gap 7 (5-15); BUN 15 mg/dL (7-18); BUN/Creat Ratio 16.1 RATIO (10-20); Calcium,Total 8.3 mg/dL (8.5-10.1); Chloride 107 mmol/L (98-107); Creatinine, Serum 0.93 mg/dL (0.70-1.30); EST Glomerular Filtration Rate 86 mL/min (>60); Est Glom Filt Rate - Afr Amer 104 mL/min (>60); Estimated Creatinine Clearance 72.06 ml/min; Globulin 2.9 g/dL (2.2-4.2); Glucose 115 mg/dL (74-106); Potassium 4.1 mmol/L (3.5-5.1); Prealbumin 25.5 mg/dL (20.0-40.0); Protein, Total 6.1 g/dL (6.4-8.2); Sodium Level 139 mmol/L (136-145)
[2019-07-15] MEDS: Pantoprazole Sodium 40 MG Tablet PO (09:07)
--- NOTE | 2019-07-15 09:49 | PN.SURG_ITS ---
Subjective: Patient complains of less pain today. He states he is able to make a fist without difficulty. - Physical Exam Vitals/I&O's: Vital Signs Temp Pulse Resp BP Pulse Ox 98.4 F 60 16 132/75 H 94 07/15/19 04:00 07/15/19 04:00 07/15/19 04:00 07/15/19 04:00 07/15/19 04:00 Oxygen Delivery Method Room Air Weight: 175 lb 11.335 oz Body Mass Index (BMI) 27.5 Intake and Output for Last 24 Hours 07/13/19 07/14/19 07/15/19 23:59 23:59 23:59 Intake Total 600 / 600 607 / 607 Balance 600 / 600 607 / 607 General: Alert, Oriented x3 HEENT: PERRLA, EOMI Oral: Moist Mucosa Neck: Supple Lungs: Clear to auscultation Cardiovascular: Regular rate, Regular Rhythm Abdomen: Soft, Non-Distended Skin: Ulcer/ Wound - multiple cat bite wound dorsum right hand. Redness much better. Swelling improved. He can make a fist. Much less tenderness on dorsum right hand. Wrist range of motion is nontender. Forearm is nontender. Fingers are warm with good capillary refill. Radial pulses are palpable. No axillary adenopathy. Neurological: Cranial nerves II-XII grossly intact Psych/Mental Status: Normal Affect, Appropriate Laboratory Results 07/14/19 14:05: WBC 7.1, RBC 4.76, Hgb 14.4, Hct 44.1, MCV 92.6, MCH 30.3, MCHC 32.7, RDW Std Deviation 42.9, RDW Coeff of Debbi 12.5, Plt Count 156, MPV 10.4, Immature Gran % (Auto) 0.300, Neut % (Auto) 75.0 H, Lymph % (Auto) 16.0 L, Centre % (Auto) 7.3, Eos % (Auto) 1.1, Baso % (Auto) 0.3, Absolute Neuts (auto) 5.3, Absolute Lymphs (auto) 1.13, Nucleated RBC % 0 07/14/19 14:05: Sodium 139, Potassium 4.4, Chloride 109 H, Carbon Dioxide 27.0, Anion Gap 3 L, BUN 22 H, Creatinine 1.13, Estim Creat Clear Calc 59.31, Est GFR (MDRD) Af Amer 83, Est GFR (MDRD) Non-Af 69, BUN/Creatinine Ratio 19.5, Glucose 105, Calcium 8.7 07/15/19 06:28: WBC 7.7, RBC 4.70, Hgb 14.5, Hct 43.8, MCV 93.2, MCH 30.9, MCHC 33.1, RDW Std Deviation 42.5, RDW Coeff of Debbi 12.3, Plt Count 162, MPV 10.6, ESR 12 07/15/19 06:28: Sodium 139, Potassium 4.1, Chloride 107, Carbon Dioxide 25.0, Anion Gap 7, BUN 15, Creatinine 0.93, Estim Creat Clear Calc 72.06, Est GFR (MDRD) Af Amer 104, Est GFR (MDRD) Non-Af 86, BUN/Creatinine Ratio 16.1, Glucose 115 H, Calcium 8.3 L, Total Bilirubin 0.60, AST 17, ALT 24, Alkaline Phosphatase 75, C-React Prot Ext Range 14.90 H, Total Protein 6.1 L, Albumin 3.2, Globulin 2.9, Albumin/Globulin Ratio 1.1, Prealbumin 25.5 Current Medications Docusate Sodium (Colace) 100 mg PO BID [facility] Last Admin: 07/15/19 09:07 Dose: Not Given Documented by: Doxazosin Mesylate (Cardura) 1 mg PO QHS [facility] Last Admin: 07/14/19 22:20 Dose: 1 mg Documented by: Hydromorphone HCl (Dilaudid Inj) 1 mg IV Q4H PRN PRN PRN Reason: Pain Score 6-10/10 Sodium Chloride () 250 mls @ 15 mls/hr IV .[id number] PRN PRN Reason: Saline Flush Last Infusion: 07/14/19 22:30 Dose: 0 mls/hr Documented by: Sodium Chloride () 250 mls @ 15 mls/hr IV .[id number] PRN PRN Reason: Additional IVPB Infusion Ampicillin Sodium/Sulbactam (Sodium 3 gm/ Sodium Chloride) 112 mls @ 150 mls/hr IV Q6 [facility] Last Infusion: 07/15/19 07:03 Dose: Infused Documented by: Lactated Ringer's () 1,000 mls @ 60 mls/hr IV .[id number] [facility] Last Infusion: 07/15/19 06:32 Dose: 0 mls/hr Documented by: Lisinopril (Zestril) 20 mg PO QHS [facility] Last Admin: 07/14/19 22:20 Dose: 20 mg Documented by: Metoprolol Succinate (Toprol Xl (Beta Brent)) 12.5 mg PO QHS [facility] Last Admin: 07/14/19 22:19 Dose: 12.5 mg Documented by: Nutritional Formula ([place] - [place] Flavor) 1 packet PO BIDCM [facility] Last Admin: 07/15/19 09:07 Dose: 1 packet Documented by: Nutritional Formula (Lactose Free) (Ensure Enlive) 120 ml PO TID [facility] Last Admin: 07/15/19 06:19 Dose: Not Given Documented by: Ondansetron HCl (Zofran) 4 mg IV Q6H PRN PRN PRN Reason: NAUSEA Oxycodone HCl (Oxyir) 10 mg PO Q4H PRN PRN PRN Reason: Pain Score 4-5/10 Pantoprazole Sodium (Protonix) 40 mg PO DAILY [facility] Last Admin: 07/15/19 09:07 Dose: 40 mg Documented by: Promethazine HCl (Phenergan Tablet) 25 mg PO Q4H PRN PRN PRN Reason: NAUSEA/VOMITING Sodium Chloride () 10 - 40 ml IV UD PRN PRN Reason: SALINE FLUSH Last Admin: 07/15/19 06:32 Dose: 10 ml Documented by: Medical Necessity - Tobacco Use Smoking Status: Never smoker Assessment/Plan All Active Problems (Last Reviewed 07/02/19 @ 10:33 by Yakelin Lee) Cellulitis of right hand (Acute) Open wound of right hand due to cat bite (Acute) Cat bite (Acute) S/P colonoscopy (Acute) Hearing problem (Acute) Heart murmur (Acute) History of tonsillectomy and adenoidectomy (Acute) History of inguinal herniorrhaphy (Acute) History of gynecomastia (Acute) History of shoulder surgery (Acute) History of hydrocelectomy (Acute) History of cataract extraction (Acute) H/O lateral meniscus repair of right knee (Acute) Colon cancer screening (Acute) ASSESSMENT Cat bite infection dorsum right hand with cellulitis, improving. PLAN X-ray reviewed. No fracture and no foreign body. The cellulitis has improved. He has better range of motion and can make a fist. No need for urgent surgery today. He may eat breakfast. Continue IV antibiotics with Unasyn for another day. Keep right hand elevated. Will keep npo again tomorrow morning until evaluated. If the redness worsens despite IV antibiotics, then he would need operative intervention with incision and drainage and excisional debridement of the cat bite wounds dorsum right hand. Would leave the wounds open and begin daily Silver dressing changes. If there is worsening, a CT scan would be obtained preoperatively. If there is improvement, would stop the IV Unasyn and start PO Augmentin in preparation for discharge. Would followup office one week after discharge. Encourage range of motion exercises to minimize stiffness. Prealbumin was 24.5. Encourage nutritional supplementation with protein to help the healing process. Patient was informed of the risks and complications of the procedure including alternatives to surgery. These were discussed with the patient personally. Patient voices understanding and wishes to proceed with the current plan of IV antibiotics and close observation. Patient understands that surgery may be necessary. Some of the risks and complications that were discussed included but were not inclusive of failure to diagnose including symptom relief, pain, infection, numbness, stiffness, loss of digit, RSD (CRPS), need for further surgery, contracture, nail deformity and wound healing problems. Inpatient E&M: 25267 Subs Hosp L2 - ICD-10 - W55.01xA, S61.451A, L03.113
[2019-07-15 10:00] VITALS: BP 136/58; PULSE 74; RESP 16; TEMP 36.8; O2SAT 98
--- NOTE | 2019-07-15 11:35 | CASEMGMT ---
RN CM Face to Face with patient for initial transition planning/care coordination assessment. RN CM introduced self and role at [facility]. Patient lying in bed, alert and oriented. Patient willing to participate in assessment and is able to answer all questions appropriately. Care providers, pharmacy, and demographics verified. Patient wishes to discharge home, denies need for home health at this time. Patient states he has no further needs or concerns at this time. CM to follow for discharge planning needs that may arise. PCP: Hammad Burr Specialists: Samm Ball Pharmacy: [facility] Insurance: [facility] Prescription Benefit: yes Living Will/HPOA: none LNOK: Living Arrangements: Patient lives with in 1 story home wiht 2 steps to enter the home. Patient is independent at home. Transportation: self/ DME/HHC: Patient denies any DME in the home. Patient states that he has had [facility] in the past. Disposition Plan: Patient to discharge home with family support and follow-up plans in place. Valeria MADDEN, RN, CM
[2019-07-15 15:05] VITALS: BP 126/68; PULSE 79; RESP 16; TEMP 36.7; O2SAT 94
[2019-07-15 19:43] VITALS: BP 137/70; PULSE 79; RESP 16; TEMP 36.8; O2SAT 93
[2019-07-15 21:46] VITALS: BP 140/80; PULSE 74; RESP 14; TEMP 36.9; O2SAT 94
[2019-07-15 21:48] VITALS: PULSE 74
[2019-07-15] MEDS: Doxazosin 1 MG Tablet PO (21:48)
[2019-07-15] MEDS: Metoprolol(XL)Succ 25 MG Tablet 12.5 MG PO (21:48)
[2019-07-15] MEDS: Docusate Sodium 100 MG Capsule PO (21:48)
[2019-07-15] MEDS: Lisinopril 20 MG Tablet PO (21:48)
[2019-07-16] MEDS: 0.9% Saline Lock 10 ML Syringe IV (00:01)
[2019-07-16 03:50] VITALS: BP 123/73; PULSE 60; RESP 18; TEMP 36.8; O2SAT 92
[2019-07-16 06:59] LABS: Hematocrit 44.1 % (40-54); Hemoglobin 14.8 g/dL (13.0-16.5); Mean Corp Hgb Conc 33.6 g/dL (32-36); Mean Corpuscular Hgb 30.6 pg (27.0-32.0); Mean Corpuscular Volume 91.3 fL (80-94); Mean Platelet Vol. 10.3 fl (6.2-12.0); Platelet Count 152 K/mm3 (150-450); RBC Distribution Width CV 12.3 % (11.6-14.6); RBC Distribution Width SD 40.9 fl (35.1-43.9); Red Blood Count 4.83 M/mm3 (4.6-6.2); White Blood Count 7.6 K/mm3 (4.4-11.0)
[2019-07-16 07:22] LABS: Anion Gap 6 (5-15); BUN 22 mg/dL (7-18); BUN/Creat Ratio 20.6 RATIO (10-20); Calcium,Total 8.4 mg/dL (8.5-10.1); Chloride 107 mmol/L (98-107); Creatinine, Serum 1.07 mg/dL (0.70-1.30); EST Glomerular Filtration Rate 73 mL/min (>60); Est Glom Filt Rate - Afr Amer 89 mL/min (>60); Estimated Creatinine Clearance 62.63 ml/min; Glucose 111 mg/dL (74-106); Potassium 3.9 mmol/L (3.5-5.1); Sodium Level 139 mmol/L (136-145)
[2019-07-16 08:39] VITALS: BP 142/46; PULSE 61; RESP 16; TEMP 36.7; O2SAT 92
[2019-07-16] MEDS: Docusate Sodium 100 MG Capsule PO (09:57)
[2019-07-16] MEDS: Amox/Clavulanate 875 MG Tablet PO (09:57)
[2019-07-16] MEDS: Pantoprazole Sodium 40 MG Tablet PO (09:57)
[2019-07-16 13:17] VITALS: BP 139/70; PULSE 73; RESP 16; TEMP 37.2; O2SAT 93
--- NOTE | 2019-07-16 13:48 | PCM.DC ---
You will use the following diet at home:: No restrictions Your food should be the consistency of: Regular Discharge Activity: May not drive while taking narcotic pain medications., - - keep right hand elevated. May shower in (days): 1 May resume sexual activity in: No Restrictions Weight Bearing Status: Weight bearing as tolerated Keep extremity elevated above heart level: Right Arm Call your doctor if your incision/area has: Continuous Slow Oozing, Sudden Increased Bleeding, Increased Pain/ Swelling, Increased Redness, Foul Smelling Discharge, Swelling at the incision site Call your doctor if you observe: Fever of 101 or Higher, Coldness, Increased Pain, Shortness of breath, Chest pain, Calf discomfort, Uncontrolled pain Suture Line Care: - - wash cat bite wounds with soap and water daily. Cleanse incision/area with: Soap & Water, - - patient may shower. Additional Instructions: Patient has Tylenol or Ibuprofen as needed for pain. Encourage range of motion exercises to minimize stiffness. Allergies/Adverse Reactions: Allergies amlodipine [From Norvasc] Allergy (Unknown, Verified 07/14/19 16:00) Swelling legs swell atenolol Allergy (Unknown, Verified 07/14/19 16:00) Swelling legs swell ketoprofen [From Orudis] Allergy (Unknown, Verified 07/14/19 13:21) Unknown morphine Adverse Reaction (Verified 07/14/19 13:21) Nausea Medications to take at Discharge Doxazosin Mesylate [Cardura] 1 mg PO QHS 03/15/15 Lisinopril [Zestril] 20 mg PO QHS 03/15/15 metoprolol succinate 25 mg tablet,extended release 24 hr 12.5 mg PO QHS 04/30/17 Esomeprazole Magnesium 40 mg PO DAILY 07/14/19 Imiquimod 1 applic TOPICAL 5XW 07/14/19 Amox/Clavulanate Tablet [Augmentin Tablet] 875 mg PO BIDCM #42 tab 07/16/19 Lactobacillus Acidophilus/Fos [Acidophilus Probiotic Tablet] 1 ea PO BID #50 tab 07/16/19 The following prescriptions were given: Lactobacillus Acidophilus/Fos [Acidophilus Probiotic Tablet] 1 ea PO BID #50 tab Transmission Status: Pending to [id number] Amox/Clavulanate Tablet [Augmentin Tablet] 875 mg PO BIDCM #42 tab Transmission Status: Pending to [id number] Primary Care Physician: Hammad Burr MD [Primary Care Provider] - Test Results: Test results from this visit will be discussed in further detail at your follow-up appointment, if applicable. Please Follow Up With: Gunner Ball MD When: one week. call [phone] for appt. Proposed Discharge Date: 07/16/19
--- NOTE | 2019-07-16 22:44 | PCM.DC.SUM ---
Discharge Date and Diagnosis Date of Admission: 07/14/19 Date of Discharge: 07/16/19 - Primary Discharge Diagnosis Cat bite infection dorsum right hand with cellulitis. - Secondary Discharge Diagnosis Family history of melanoma mucous cyst radial aspect left long finger at DIP joint Pterygium left long finger involving scarring of eponychium and nail fold to nail bed leading to split nail Hypertension Cataracts, bilateral Nail grooving left long finger. Actinic keratosis right lateral forehead, left upper cheek by sideburn, right lower lateral cheek by jawline, and left upper neck by jawline. Hospital Course and Treatment Imaging Results: Diagnostic Data Hand X-Ray 07/14/19 14:40 IMPRESSION: Soft tissue swelling. Electronically Signed: Dhruv Jay Jay, at 14:57 EDT , Service support , CONSULTATIONS None. Operations: None Procedures: None Summary of Care Provided: 69 year old man presents with a worsening cat bite dorsum right hand that he sustained 2 days ago from his pet cat. He went to his PCP yesterday who placed him on Augmentin. The pain and redness and swelling worsened over the next 24 hours, and it was recommended he go to the ED for evaluation. X-ray was done which showed no fracture and no foreign body. He failed outpatient therapy and he was admitted for IV antibiotics and evaluation for possible surgical intervention. He is right hand dominant. His WBC on admission was 7.1. Unasyn was started. His WBC remained normal during his hospital stay. The pain and redness and swelling resolved over 48 hours of IV Unasyn. On the third hospital day, 07/16/19, the Unasyn was stopped and he was transitioned to Augmentin. Over the next several hours, his right hand remained the same without a relapse of the infection. The pain and redness and swelling remain resolved. The cat bite wounds developed dry scabs without drainage. Prealbumin was 25.5. Encourage nutritional supplementation with protein to help the healing process. On 07/16/19, after tolerating po Augmentin without a relapse of the infection, he was discharged home in satisfactory condition. Wrote a script for Augmentin and for Acidophilus Probiotic. Keep right hand elevated. Encourage range of motion exercises to minimize stiffness. Followup office one week. He was instructed to call sooner if he notices increasing pain, redness, or swelling. Condition upon discharge is good. Subjective: Patient has no pain complaints. He has no trouble making a fist. - Physical Exam Vitals/I&O's: Vital Signs Temp Pulse Resp BP Pulse Ox 99.0 F 73 16 139/70 H 93 07/16/19 13:17 07/16/19 13:17 07/16/19 13:17 07/16/19 13:17 07/16/19 13:17 Oxygen Delivery Method Room Air Weight: 175 lb 11.335 oz Body Mass Index (BMI) 27.5 Intake and Output for Last 24 Hours 07/14/19 07/15/19 07/16/19 23:59 23:59 23:59 Intake Total 600 / 600 2306.5 / 2306.5 691.00 / 691.00 Balance 600 / 600 2306.5 / 2306.5 691.00 / 691.00 General: Alert, Oriented x3 HEENT: PERRLA, EOMI Oral: Moist Mucosa Neck: Supple Abdomen: Soft, Non-Distended Skin: Ulcer/ Wound - multiple cat bite wound dorsum right hand. Redness much better. Swelling improved. He can make a fist. Much less tenderness on dorsum right hand. Wrist range of motion is nontender. Forearm is nontender. Fingers are warm with good capillary refill. Radial pulses are palpable. No axillary adenopathy. Neurological: Cranial nerves II-XII grossly intact Psych/Mental Status: Normal Affect, Appropriate Microbiology Past 72 Hours 07/14/19 15:00 Blood Culture (Wb) - Anticubital Right Blood Culture - Preliminary No growth in 48 hours. 07/14/19 15:05 Blood Culture (Wb) - Left Forearm Blood Culture - Preliminary No growth in 48 hours. Laboratory Results 07/16/19 06:49: WBC 7.6, RBC 4.83, Hgb 14.8, Hct 44.1, MCV 91.3, MCH 30.6, MCHC 33.6, RDW Std Deviation 40.9, RDW Coeff of Debbi 12.3, Plt Count 152, MPV 10.3 07/16/19 06:49: Sodium 139, Potassium 3.9, Chloride 107, Carbon Dioxide 26.0, Anion Gap 6, BUN 22 H, Creatinine 1.07, Estim Creat Clear Calc 62.63, Est GFR (MDRD) Af Amer 89, Est GFR (MDRD) Non-Af 73, BUN/Creatinine Ratio 20.6 H, Glucose 111 H, Calcium 8.4 L Discharge Diet: No Restrictions Discharge Activity: May not drive while taking narcotic pain medications., - - keep right hand elevated. May shower in (days): 1 May resume sexual activity in: No Restrictions Weight Bearing Status: Weight bearing as tolerated Keep extremity elevated above heart level: Right Arm Call your doctor if your incision/area has: Continuous Slow Oozing, Sudden Increased Bleeding, Increased Pain/ Swelling, Increased Redness, Foul Smelling Discharge, Swelling at the incision site Call your doctor if you observe: Fever of 101 or Higher, Coldness, Increased Pain, Shortness of breath, Chest pain, Calf discomfort, Uncontrolled pain Suture Line Care: - - wash cat bite wounds with soap and water daily. Cleanse incision/area with: Soap & Water, - - patient may shower. Home Medications: Medications to take at Discharge Doxazosin Mesylate [Cardura] 1 mg PO QHS 03/15/15 Lisinopril [Zestril] 20 mg PO QHS 03/15/15 metoprolol succinate 25 mg tablet,extended release 24 hr 12.5 mg PO QHS 04/30/17 Esomeprazole Magnesium 40 mg PO DAILY 07/14/19 Imiquimod 1 applic TOPICAL 5XW 07/14/19 Amox/Clavulanate Tablet [Augmentin Tablet] 875 mg PO BIDCM #42 tab 07/16/19 Lactobacillus Acidophilus/Fos [Acidophilus Probiotic Tablet] 1 ea PO BID #50 tab 07/16/19 Following Prescrptions Were Given to Patient: Lactobacillus Acidophilus/Fos [Acidophilus Probiotic Tablet] 1 ea PO BID #50 tab Transmission Status: Received by [facility] Amox/Clavulanate Tablet [Augmentin Tablet] 875 mg PO BIDCM #42 tab Transmission Status: Received by [id number] Primary Care Physician: Hammad Burr MD [Primary Care Provider] - Please Follow Up With: Gunner Ball MD When: one week. call [phone] for appt. Disposition: Home Minutes spent on discharge:: 30 Patient Condition:: Good Medical Necessity - Tobacco Use Smoking Status: Never smoker Meaningful Use Info Meaningful Use Diagnoses (Choose all that apply): None applicable Inpatient E&M: 15818 Disch Hosp - ICD-10 - W55.01xA, S61.451A, L03.113
== END 2019-07-16 15:16 | disposition home or self-care (01) | DRG 603 ==
LOC: ED 15:02 → PCU 20:20
PROVIDERS: Admitting Provider Surgery; Emergency Provider Emergency Medicine; PCP Family Medicine; Visit Provider Surgery
DX: L03.113 Cellulitis of right upper limb (principal); W55.01XA Bitten by cat, initial encounter; L57.0 Actinic keratosis; I10 Essential (primary) hypertension; R01.1 Cardiac murmur, unspecified; H26.9 Unspecified cataract; Q84.6 Other congenital malformations of nails; Z80.8 Family history of malignant neoplasm of other organs or systems; Z82.0 Family history of epilepsy and other diseases of the nervous system; Z80.3 Family history of malignant neoplasm of breast; Z82.3 Family history of stroke; Z82.49 Family history of ischemic heart disease and other diseases of the circulatory system; Z83.3 Family history of diabetes mellitus
CPT/HCPCS: 36415; 73130; 80048; 80053; 84134; 85025; 85027; 85652; 86140; 87040; 97802; 99284; J7030; J7050; J7120; A4216; J0295

== ENCOUNTER → 2020-09-12 16:41 | Outpatient (CLI) | payer MEDICARE, SELFPAY ==
[2020-03-08 10:43] VITALS: BMI 29.5
[2020-09-12 17:45] LABS: Absolute Lymphocyte Count 1.53 X10^3/uL (0.83-4.51); Absolute Neutrophil Count 5.1 X10^3/uL (2.0-7.7); Basophil# 0.03 X10^3/uL; Basophil% 0.4 % (0-1); Eosinophil# 0.12 X10^3/uL; Eosinophils% 1.6 % (0-5); Hematocrit 42.8 % (40-54); Lymphocyte # 1.53 X10^3/ul (0.83-4.51); Lymphocyte % 20.9 % (19-41); Mean Corp Hgb Conc 32.7 g/dL (32-36); Mean Corpuscular Hgb 30.4 pg (27.0-32.0); Monocyte# 0.47 X10^3/uL; Monocyte% 6.4 % (0-10); NRBC Flagged by Analyzer 0 % (0-5); Neutrophil # 5.14 X10^3/uL (2.7-7.7); Neutrophil % 70.4 % (47-70); Platelet Count 198 K/mm3 (150-450); RBC Distribution Width CV 12.9 % (11.6-14.6); White Blood Count 7.3 K/mm3 (4.4-11.0)
[2020-09-12 18:13] LABS: ALB/GLOB Ratio 1.1 RATIO (0.9-2.4); AST(SGOT) 17 U/L (15-37); Alanine Aminotransfer ALT/SGPT 29 U/L (16-61); Albumin, Serum 3.5 g/dL (3.2-5.0); Alkaline Phosphatase 88 U/L (45-117); Anion Gap 5 (5-15); BUN 14 mg/dL (7-18); BUN/Creat Ratio 13.2 RATIO (10-20); Calcium,Total 8.6 mg/dL (8.5-10.1); Chloride 109 mmol/L (98-107); Cholesterol 156 mg/dL (200); Creatinine, Serum 1.06 mg/dL (0.70-1.30); EST Glomerular Filtration Rate 74 mL/min (>60); Est Glom Filt Rate - Afr Amer 89 mL/min (>60); Globulin 3.1 g/dL (2.2-4.2); Glucose 126 mg/dL (74-106); High Density Lipoprotein 43 mg/dL; Potassium 4.2 mmol/L (3.5-5.1); Protein, Total 6.6 g/dL (6.4-8.2); Sodium Level 141 mmol/L (136-145)
[2020-09-12 18:41] LABS: Microalbumin,Random Urine 8.7 mg/L (NO RANGE EST.); Microalbumin:Creatinine Ratio 4.3 mg/g CRE (<30 mg/g CRE)
== END ==
PROVIDERS: PCP Family Medicine; Visit Provider Family Medicine
DX: I10 Essential (primary) hypertension (principal)
CPT/HCPCS: 36415; 80053; 82043; 82465; 82570; 83718; 85025

== ENCOUNTER → 2020-11-07 12:16 | Outpatient (CLI) | payer MEDICARE, SELFPAY ==
[2020-09-13 10:49] VITALS: BMI 29.5
--- NOTE | 2020-11-07 12:24 | CT_ITS ---
EXAM: CT MAXILLOFACIAL WITHOUT INTRAVENOUS CONTRAST : 1950 CLINICAL INDICATION: nasal congestion, AM malaise and balance issues. ? mass TECHNIQUE: Helically acquired images were obtained of the face without intravenous contrast. This CT exam was performed using one or more of the following dose reduction techniques: automated exposure control, adjustment of the mA and/or kV according to patient size, and/or use of iterative reconstruction technique. This report was created using [employer] report generation technology. COMPARISON: None. FINDINGS: BONES/JOINTS: Unremarkable. No displaced fracture. No discrete lytic or blastic abnormalities. SOFT TISSUES: Unremarkable. No focal subcutaneous swelling. No discrete fluid collections. ORBITS: Unremarkable. Both globes are unremarkable. Extraocular muscles are normal. Retrobulbar fat appears unremarkable. SINUSES: There is extensive mucosal thickening in the right maxillary sinus. MASTOID AIR CELLS: Unremarkable as visualized. Clear. DENTAL: No acute findings. No periodontal osseous erosion. CT/Sinus/Facial Bone IMPRESSION: 1. No acute osseous abnormalities of the facial bones. 2. Mucosal thickening of the right maxillary sinus. The other sinuses are well aerated. Individualized dose optimization techniques were used for this CT. at 1537 Reported and signed by: Gal Salguero MD Electronically Signed: Gal Salguero MD at 15:36 EDT Tel , Service support ,
== END ==
PROVIDERS: PCP Family Medicine; Referring Provider Family Medicine; Visit Provider Family Medicine
DX: J32.9 Chronic sinusitis, unspecified (principal)
CPT/HCPCS: 70486

== ENCOUNTER → 2021-03-15 11:33 | Outpatient (CLI) | payer MEDICARE, SELFPAY ==
[2021-03-15 15:14] LABS: Anion Gap 3 (5-15); BUN 17 mg/dL (7-18); Calcium,Total 9.3 mg/dL (8.5-10.1); Chloride 106 mmol/L (98-107); Cholesterol 167 mg/dL (200); Creatinine, Serum 1.13 mg/dL (0.70-1.30); EST Glomerular Filtration Rate 68 mL/min (>60); Est Glom Filt Rate - Afr Amer 83 mL/min (>60); Glucose 113 mg/dL (74-106); High Density Lipoprotein 56 mg/dL; Potassium 4.2 mmol/L (3.5-5.1); Sodium Level 140 mmol/L (136-145); Triglycerides 63 mg/dL; Very Low Density Lipoprotein 13 mg/dL (5-40)
== END ==
PROVIDERS: PCP Family Medicine; Referring Provider Family Medicine; Visit Provider Registered Nurse
DX: I10 Essential (primary) hypertension (principal)
CPT/HCPCS: 36415; 80048; 80061

== ENCOUNTER → 2021-09-11 | Outpatient (CLI) | payer MEDICARE, SELFPAY ==
[2021-09-11 10:53] LABS: ALB/GLOB Ratio 1.5 RATIO (0.9-2.4); AST(SGOT) 17 U/L (15-37); Alanine Aminotransfer ALT/SGPT 25 U/L (16-61); Albumin, Serum 3.8 g/dL (3.2-5.0); Alkaline Phosphatase 74 U/L (45-117); Anion Gap 7 (5-15); BUN 18 mg/dL (7-18); Chloride 107 mmol/L (98-107); Creatinine, Serum 0.94 mg/dL (0.70-1.30); EST Glomerular Filtration Rate 84 mL/min (>60); Est Glom Filt Rate - Afr Amer 102 mL/min (>60); Globulin 2.6 g/dL (2.2-4.2); Glucose 131 mg/dL (74-106); Potassium 4.1 mmol/L (3.5-5.1); Protein, Total 6.4 g/dL (6.4-8.2); Sodium Level 140 mmol/L (136-145)
== END | disposition home or self-care (01) ==
LOC: MFPLAB 09:14
PROVIDERS: PCP Family Medicine; Referring Provider Family Medicine; Visit Provider Family Medicine
DX: I10 Essential (primary) hypertension (principal)
CPT/HCPCS: 36415; 80053; 82043; 82570

== ENCOUNTER → 2022-05-30 | Outpatient (CLI) | payer MEDICARE, SELFPAY ==
[2022-05-30 13:06] LABS: Microalbumin,Random Urine 8.5 mg/L (NO RANGE EST.); Microalbumin:Creatinine Ratio 4.7 mg/g CRE (<30 mg/g CRE)
[2022-05-30 13:08] LABS: ALB/GLOB Ratio 1.3 RATIO (0.9-2.4); AST(SGOT) 17 U/L (15-37); Alanine Aminotransfer ALT/SGPT 24 U/L (16-61); Albumin, Serum 3.8 g/dL (3.2-5.0); Alkaline Phosphatase 73 U/L (45-117); Anion Gap 5 (5-15); BUN 20 mg/dL (7-18); Chloride 108 mmol/L (98-107); Cholesterol 173 mg/dL (200); EST Glomerular Filtration Rate 79 mL/min (>60); Est Glom Filt Rate - Afr Amer 95 mL/min (>60); Globulin 2.9 g/dL (2.2-4.2); Glucose 134 mg/dL (74-106); High Density Lipoprotein 58 mg/dL; Potassium 4.1 mmol/L (3.5-5.1); Protein, Total 6.7 g/dL (6.4-8.2); Sodium Level 141 mmol/L (136-145); Triglycerides 56 mg/dL; Very Low Density Lipoprotein 11 mg/dL (5-40)
== END | disposition home or self-care (01) ==
LOC: MFPLAB 11:04
PROVIDERS: PCP Family Medicine; Referring Provider Family Medicine; Visit Provider Family Medicine
DX: Z00.00 Encounter for general adult medical examination without abnormal findings (principal); I10 Essential (primary) hypertension
CPT/HCPCS: 36415; 80053; 80061; 82043; 82570

== ENCOUNTER → 2022-08-02 | Outpatient (CLI) | payer MEDICARE, SELFPAY ==
[2022-08-02 15:36] LABS: Absolute Lymphocyte Count 1.63 X10^3/uL (0.83-4.51); Absolute Neutrophil Count 4.4 X10^3/uL (2.0-7.7); Basophil# 0.05 X10^3/uL; Basophil% 0.7 % (0-1); Eosinophil# 0.21 X10^3/uL; Eosinophils% 3.1 % (0-5); Hematocrit 45.1 % (40-54); Lymphocyte # 1.63 X10^3/ul (0.83-4.51); Lymphocyte % 24.2 % (19-41); Mean Corp Hgb Conc 33.3 g/dL (32-36); Mean Corpuscular Hgb 30.7 pg (27.0-32.0); Mean Corpuscular Volume 92.4 fL (80-94); Mean Platelet Vol. 11.2 fl (6.2-12.0); Monocyte# 0.45 X10^3/uL; Monocyte% 6.7 % (0-10); NRBC Flagged by Analyzer 0 % (0-5); Neutrophil # 4.36 X10^3/uL (2.7-7.7); Neutrophil % 64.9 % (47-70); Platelet Count 169 K/mm3 (150-450); RBC Distribution Width CV 12.4 % (11.6-14.6); RBC Distribution Width SD 42.2 fl (35.1-43.9); Red Blood Count 4.88 M/mm3 (4.6-6.2); White Blood Count 6.7 K/mm3 (4.4-11.0)
[2022-08-02 15:57] LABS: Erythrocyte Sedimentation Rate 9 mm/hr (0-20)
[2022-08-02 16:19] LABS: ALB/GLOB Ratio 1.2 RATIO (0.9-2.4); AST(SGOT) 16 U/L (15-37); Alanine Aminotransfer ALT/SGPT 30 U/L (16-61); Albumin, Serum 3.7 g/dL (3.2-5.0); Alkaline Phosphatase 71 U/L (45-117); Anion Gap 4 (5-15); BUN 16 mg/dL (7-18); BUN/Creat Ratio 16.4 RATIO (10-20); CRP 3.68 mg/L (0.0-3.0); Calcium,Total 9.1 mg/dL (8.5-10.1); Chloride 106 mmol/L (98-107); Creatinine, Serum 0.97 mg/dL (0.70-1.30); EST Glomerular Filtration Rate 81 mL/min (>60); Est Glom Filt Rate - Afr Amer 98 mL/min (>60); Globulin 3.1 g/dL (2.2-4.2); Glucose 123 mg/dL (74-106); Potassium 3.9 mmol/L (3.5-5.1); Protein, Total 6.8 g/dL (6.4-8.2); Sodium Level 136 mmol/L (136-145)
== END | disposition home or self-care (01) ==
LOC: MFPLAB 12:09
PROVIDERS: PCP Family Medicine; Visit Provider Family Medicine
DX: R29.898 Other symptoms and signs involving the musculoskeletal system (principal)
CPT/HCPCS: 36415; 80053; 85025; 85652; 86140

== ENCOUNTER → 2023-05-20 | Outpatient (CLI) | payer MEDICARE, SELFPAY ==
--- NOTE | 2023-05-20 12:45 | RAD_ITS ---
STUDY: X-RAY - RIGHT SHOULDER REASON FOR EXAM: Male, 72 years old. pain TECHNIQUE: 4 view(s) of the shoulder. COMPARISON: None. FINDINGS: There is mild degenerative arthrosis of the glenohumeral articulation. There is degenerative arthrosis of the acromioclavicular joint with small adjacent well-corticated ossicle. Normal acromion. There is demineralization of the humerus and visualized osseous structures. The soft tissue structures are unremarkable. Normal visualized pulmonary apex. RAD/Shoulder min 2 Views IMPRESSION: Degenerative changes with no evidence of acute osseous injury or fracture. Electronically Signed: Naga Story DO at 16:49 EST ,
== END | disposition home or self-care (01) ==
LOC: MTRAD 12:42
PROVIDERS: PCP Family Medicine; Referring Provider Family Medicine; Visit Provider Family Medicine
DX: M25.511 Pain in right shoulder (principal)
CPT/HCPCS: 73030

== ENCOUNTER → 2023-05-28 | Outpatient (CLI) | payer MEDICARE, SELFPAY ==
[2023-05-28 15:23] LABS: ALB/GLOB Ratio 1.2 RATIO (0.9-2.4); AST(SGOT) 10 U/L (15-37); Alanine Aminotransfer ALT/SGPT 22 U/L (16-61); Albumin, Serum 3.6 g/dL (3.2-5.0); Alkaline Phosphatase 71 U/L (45-117); Anion Gap 4 (5-15); BUN 19 mg/dL (7-18); BUN/Creat Ratio 18.8 RATIO (10-20); Chloride 108 mmol/L (98-107); Cholesterol 141 mg/dL (200); Creatinine, Serum 1.01 mg/dL (0.70-1.30); EST Glomerular Filtration Rate 77 mL/min (>60); Est Glom Filt Rate - Afr Amer 94 mL/min (>60); Glucose 156 mg/dL (74-106); High Density Lipoprotein 53 mg/dL; Potassium 4.2 mmol/L (3.5-5.1); Protein, Total 6.6 g/dL (6.4-8.2); Sodium Level 139 mmol/L (136-145); Triglycerides 58 mg/dL; Very Low Density Lipoprotein 12 mg/dL (5-40)
[2023-05-28 15:38] LABS: Microalbumin,Random Urine 11.5 mg/L (NO RANGE EST.); Microalbumin:Creatinine Ratio 6.1 mg/g CRE (<30 mg/g CRE)
== END | disposition home or self-care (01) ==
LOC: MFPLAB 11:18
PROVIDERS: PCP Family Medicine; Visit Provider Family Medicine
DX: Z13.220 Encounter for screening for lipoid disorders (principal); I10 Essential (primary) hypertension
CPT/HCPCS: 36415; 80053; 80061; 82043; 82570

== ENCOUNTER → 2023-11-27 | Outpatient (CLI) | payer MEDICARE, SELFPAY ==
[2023-11-27 18:46] LABS: ALB/GLOB Ratio 1.1 RATIO (0.9-2.4); AST(SGOT) 12 U/L (15-37); Alanine Aminotransfer ALT/SGPT 22 U/L (16-61); Albumin, Serum 3.4 g/dL (3.2-5.0); Alkaline Phosphatase 93 U/L (45-117); Anion Gap 7 (5-15); BUN 21 mg/dL (7-18); BUN/Creat Ratio 15.6 RATIO (10-20); Calcium,Total 8.6 mg/dL (8.5-10.1); Chloride 99 mmol/L (98-107); Creatinine, Serum 1.35 mg/dL (0.70-1.30); EST Glomerular Filtration Rate 55 mL/min (>60); Est Glom Filt Rate - Afr Amer 67 mL/min (>60); Globulin 3.2 g/dL (2.2-4.2); Glucose 494 mg/dL (74-106); PSA,Total - Annual Screen 1.43 ng/mL (0.00-4.00); Potassium 4.3 mmol/L (3.5-5.1); Protein, Total 6.6 g/dL (6.4-8.2); Sodium Level 131 mmol/L (136-145)
[2023-11-27 18:47] LABS: Microalbumin,Random Urine < 5.0 mg/L (NO RANGE EST.)
== END | disposition home or self-care (01) ==
LOC: MFPLAB 13:57
PROVIDERS: PCP Family Medicine; Visit Provider Family Medicine
DX: I10 Essential (primary) hypertension (principal); Z12.5 Encounter for screening for malignant neoplasm of prostate
CPT/HCPCS: 36415; 80053; 82043; 82570; 84153; G0103

== ENCOUNTER → 2023-12-15 | Outpatient (CLI) | payer MEDICARE, SELFPAY ==
[2023-12-15 12:28] LABS: ALB/GLOB Ratio 1.2 RATIO (0.9-2.4); AST(SGOT) 13 U/L (15-37); Alanine Aminotransfer ALT/SGPT 21 U/L (16-61); Albumin, Serum 3.7 g/dL (3.2-5.0); Alkaline Phosphatase 67 U/L (45-117); Anion Gap 9 (5-15); BUN 24 mg/dL (7-18); BUN/Creat Ratio 20.5 RATIO (10-20); Calcium,Total 9.8 mg/dL (8.5-10.1); Chloride 101 mmol/L (98-107); Creatinine, Serum 1.17 mg/dL (0.70-1.30); EST Glomerular Filtration Rate 65 mL/min (>60); Est Glom Filt Rate - Afr Amer 79 mL/min (>60); Globulin 3.2 g/dL (2.2-4.2); Glucose 132 mg/dL (74-106); Lipase 89 U/L (13-75); Potassium 4.5 mmol/L (3.5-5.1); Protein, Total 6.9 g/dL (6.4-8.2); Sodium Level 131 mmol/L (136-145)
== END | disposition home or self-care (01) ==
LOC: MFPLAB 10:46
PROVIDERS: PCP Family Medicine; Visit Provider Family Medicine
DX: E11.9 Type 2 diabetes mellitus without complications (principal); R11.0 Nausea
CPT/HCPCS: 36415; 80053; 83690

== ENCOUNTER → 2023-12-24 | Outpatient (CLI) | payer MEDICARE, SELFPAY ==
--- NOTE | 2023-12-24 09:27 | US_ITS ---
INDICATION: PANCREATIC ABN EXAMINATION: Ultrasound US Abdomen Limited (quadrant) TECHNIQUE: Flynn scale and color doppler imaging was performed of the right upper quadrant. COMPARISON: None. FINDINGS: LIVER: Diffuse increased echogenicity. Mild hepatomegaly with the right lobe length measuring 17.0 cm. No evidence of a mass. No intrahepatic duct dilation. GALLBLADDER: Mildly distended. No evidence of a stone or sludge. Normal wall thickness. No pericholecystic fluid. Negative sonographic Bellamy''s sign. COMMON BILE DUCT: Normal measuring 3 mm in diameter. PANCREAS: Not visualized due to overlying bowel gas. RIGHT KIDNEY: Simple renal cyst with no follow-up recommended. FREE FLUID: No free fluid in the right upper quadrant. US/Abdomen Limited IMPRESSION: 1. Pancreas not visualized due to overlying bowel gas. For evaluation of a congenital pancreatic duct abnormality, recommend follow-up with MRI with dedicated pancreas protocol. 2. Fatty infiltration of the liver and mild hepatomegaly. Electronically Signed: Jsee Lombardi DO at 22:18 EDT ,
== END | disposition home or self-care (01) ==
PROVIDERS: PCP Family Medicine; Referring Provider Family Medicine; Visit Provider Family Medicine
DX: Q45.3 Other congenital malformations of pancreas and pancreatic duct (principal)
CPT/HCPCS: 76705

== ENCOUNTER → 2024-03-18 | Outpatient (CLI) | payer MEDICARE, SELFPAY ==
[2024-03-18 12:04] LABS: Absolute Lymphocyte Count 1.59 X10^3/uL (0.83-4.51); Basophil# 0.05 X10^3/uL; Basophil% 0.7 % (0-1); Eosinophil# 0.23 X10^3/uL; Eosinophils% 3.1 % (0-5); Hemoglobin 15.5 g/dL (13.0-16.5); Lymphocyte # 1.59 X10^3/ul (0.83-4.51); Lymphocyte % 21.7 % (19-41); Mean Corpuscular Hgb 30.4 pg (27.0-32.0); Mean Corpuscular Volume 92.2 fL (80-94); Mean Platelet Vol. 10.5 fl (6.2-12.0); Monocyte# 0.41 X10^3/uL; Monocyte% 5.6 % (0-10); NRBC Flagged by Analyzer 0 % (0-5); Neutrophil # 5.03 X10^3/uL (2.7-7.7); Neutrophil % 68.8 % (47-70); Platelet Count 195 K/mm3 (150-450); RBC Distribution Width CV 12.8 % (11.6-14.6); RBC Distribution Width SD 43.3 fl (35.1-43.9); White Blood Count 7.3 K/mm3 (4.4-11.0)
[2024-03-18 12:31] LABS: ALB/GLOB Ratio 1.1 RATIO (0.9-2.4); AST(SGOT) 13 U/L (15-37); Alanine Aminotransfer ALT/SGPT 19 U/L (16-61); Albumin, Serum 3.6 g/dL (3.2-5.0); Alkaline Phosphatase 71 U/L (45-117); Anion Gap 6 (5-15); BUN 25 mg/dL (7-18); BUN/Creat Ratio 22.3 RATIO (10-20); Calcium,Total 9.4 mg/dL (8.5-10.1); Chloride 103 mmol/L (98-107); Creatinine, Serum 1.12 mg/dL (0.70-1.30); EST Glomerular Filtration Rate 69 mL/min (>60); Est Glom Filt Rate - Afr Amer 83 mL/min (>60); Globulin 3.4 g/dL (2.2-4.2); Glucose 161 mg/dL (74-106); Potassium 4.3 mmol/L (3.5-5.1); Sodium Level 135 mmol/L (136-145)
[2024-03-18 12:37] LABS: Microalbumin,Random Urine 5.2 mg/L (NO RANGE EST.); Microalbumin:Creatinine Ratio 6.4 mg/g CRE (<30 mg/g CRE)
[2024-03-18 12:57] LABS: Hemoglobin A1c 6.3 % (3.8-5.6)
== END | disposition home or self-care (01) ==
LOC: MFPLAB 10:25
PROVIDERS: PCP Family Medicine; Referring Provider Family Medicine; Visit Provider Family Medicine
DX: E11.9 Type 2 diabetes mellitus without complications (principal)
CPT/HCPCS: 36415; 80053; 82043; 82570; 83036; 85025

== ENCOUNTER 2024-06-24 10:00 | Outpatient (RCR) | payer MEDICARE, SELFPAY ==
--- NOTE | 2024-05-20 09:33 | HP.PTEVAL ---
Patient's Visit Information Visit Information Visit Information: CUAUHTEMOC FUCHS is a 73 year old M referred to Physical Therapy by Dr. Hammad Burr MD with a diagnosis of L lateral gastrocnemius strain, L hip pain, L leg pain, L lower extremity p. Date of Evaluation: 05/18/24 Physical Therapist: Gus Catherine DPT Visit Plan Frequency: 2x /Week Duration: 4 Weeks Plan: 1) DN to L calf, stick rolling, inhibition 2) G/S stretching, peronial stretching 3) ankle EVR eccentrics. Subjective Subjective: Pt. is here today for his initial evaluation with L lateral gastrocnemius strain, L hip pain, L leg pain, L lower extremity pain. Physician reports having tender/tight R glute medius, tender L glute min, peroneus and soleus pain on L side. Pt. reports having increased pain to 10/10 at times. Pt. reports having the worst pain with prolonged sitting. Pt. reports ~1 year ago he started to feel very tired all the time. He eventually was found to be diabetic. Starting in he started to have some calf pain and has been progressively getting worse. Pt. reports lateral calf pain. He reports that he does not have much pain with walking and activity, but worse when sitting for prolonged. Pt. reports nights and at rest is when his pain is the worse. He has minimal issues with walking and being active. pt. is hopeful to reduce symptoms in order to get back to all recreational activities without limitations. Pain L lateral calf: Pain Intensity (Out of 10): 5 Pain Intensity Range: 2 and 8 Objective Objective: POSTURE: Pt. has decent posture in stance. No major issues noted. pt. has normal wt. shifting between BLEs. PALPATION: Pt. has no pain with palpation throughout B hips or proximal LEs. Pt. has marked pain with palpation of lateral calf musculature. NEURO: Pt. has normal sensation throughout BLEs. Pt. has normal DTR of BLEs. Pt. is able to rise on heels and toes without issues. ROM: Pt. has good ROM throughout Lumbar spine and BLEs. Pt. has some tightness in L calf, but not severe. MMT: Pt. has good strength throughout BLEs and core. Pt. is able to L single leg heel raises without increase in symptoms. GAIT: Pt. has normal gait pattern without increase in symptoms. STAIRS: normal throughout with 1 HR. - slump test, - SLR test, - obers test. Pt. was very pin point tender to L peroneals and later gastroc. Balance/Special Test Scores Lower Extremity Functional Score: 50 Goals Goal 1:: LTG: Pt. to be I with HEP. Goal Time Frame: 4-6 Weeks Goal 2:: STG: Pt. to reports decreased pain in evenings and night to less than 2/10 in L calf. Goal Time Frame: 2-4 Weeks Goal 3:: LTG: pt. to complete all daily activities without increase in L calf pain. Goal Time Frame: 4-6 Weeks Goal 4:: LTG: Pt. to sleep throughout night without increase in L calf pain. Goal Time Frame: 4-6 Weeks Rehabilitation Potential Physical Therapy Diagnosis: Pt. has sign and symptoms consistent with L lateral gastrocnemius strain, L hip pain, L leg pain, L lower extremity pain. Pt. has mainly increased symptoms with palpation and at the end of the day. His pain is mostly at lateral calf. Pt. would benefit from PT to address his pain and tightness. Rehabilitation Potential: Excellent Anticipated Interventions Patient/Client Instruction: Educate patient on: Condition, Plan of Care, Risk Factors and Benefits of Fitness Program For the Purpose of:: To facilitate caregiver knowledge, To improve self management, To prevent re-injury and To improve ability to perform tasks related to life management Therapeutic Exercise to Include: Strength training, Power training, Flexibilty training, Passive ROM and Active ROM For the Purpose of:: To decrease pain, To increase ROM, To improve nutrient delivery to tissue, To increase oxygenation perfusion, To improve muscle performance and motor function, To improve ability to perform ADL's and To increase tolerance to activity/condition/position Manual Therapy Techniques to Include: Functional dry needling and Soft tissue mobilization For the Purpose of:: To decrease pain, To decrease swelling/inflammation and To increase ROM Text: Thank you for the opportunity to evaluate your patient. For Medicare and Medicare HMO plans, please review the plan of care and approve it. It will need to be FAXED BACK to us at [phone] for Medicare purposes. For Medicare only, by signing this I certify the plan of care. Please let me know if there are questions or concerns regarding this plan of care. Physician Signature: Date:
--- NOTE | 2024-06-01 07:33 | HP.OTEVAL ---
Patient's Visit Information Visit Information Visit Information: CUAUHTEMOC FUCHS is a 73 year old M, referred to Occupational Therapy by Dr. Hammad Burr MD, with a diagnosis of right thumb sesamoiditis/trigger. Date of Evaluation: 05/31/24 Occupational Therapist: Yanet Snider, LELANDR/Roni, CHT Subjective Subjective: This 73 year old male was seen for OT eval with dx of right thumb sesamoiditis/trigger. pt states he feels this started about two months ago- became so swollen and painful pt was placed on prednisone pt states pain and swelling is better but to touch his thumb or use if to daily tasks it hurts- and feel like he cannot straighten his thumb. Pain right thumb: Current Pain Intensity: 0 Pain Intensity Range: 4 ROM CMC: right 15 left 15 MP: right 60 left 50 IP: right 40 left 40 Palmar Abduction: right 45 left 45 ROM Comments: pt corby with full right thumb extension with CMC in flexed position- Strength Strength Comments: will test later date Edema Other: right thumb 7.0 left 6.0 Sensation Sensation Comments: denies Quick DASH-Disab of Arm,Shoulder& Hand Quick DASH Score: 17.5000 Goals Goal:: pt will demo full right thumb ROM without signs of triggering by d.c Goal:: pt will report no pain greater than 2/10 with use of right hand with ADLs and IADls by d.c. Goal:: Pt will demo understanding of joint protection and ergonomics when performing BADLs and IADLs by d/c Pt will demo understanding of adaptive Equipment use to decrease stress on joints to allow pt to perform BADSL and IADLS at YOVANNY level. Rehabilitation General Assessment: pt arrives with swelling and pain at right thumb MCP region- no trigger this date but pt has been on prednisone since last week. pt states swelling has decreased, but pain is still limiting him with using his right dominate hand for ADLs and IADLs. pt would benefit from skilled OT services 1-2x week for 3-4 weeks to decrease edema- limit pts ROM and ed. pt on avoiding repetitive motion. custom thumb spica was nicole. for use with daily tasks to decrease FPL and FPB motion. pt demo understanding and agree to POC. Rehabilitation Potential: Good Anticipated Interventions Anticipated Interventions: A/AAROM/PROM, Triggerpoint Release, Modalities, Orthoses, Joint Protection/Energy Conservation, Education re Diagnosis and Home Program Visit Plan Frequency: 1-2x /Week Duration: 4 Weeks TEXT: Thank you for the opportunity to evaluate your patient. For Medicare and Medicare HMO plans, please review the plan of care and approve it. It will need to be FAXED BACK to us at [phone] for Medicare purposes. Please let me know if there are questions or concerns regarding this plan of care. Physician Signature: Date:
--- NOTE | 2024-06-24 10:30 | HP.OTDCSUM ---
Discharge Summary D/C Summary: It has been my pleasure to treat CUAUHTEMOC FUCHS under orders from Dr. Hammad Burr MD, for the diagnosis of right thumb sesamoiditis/trigger for a total of 6 visit(s). Please see the following information for a summary of their discharge status. Overall Improvement % Improvement: 15 Objective Objective/Function: pt demo with decrease nodule of right thumb- Goals Patient Goals: Regain Mobility, Decrease Pain, Use Hand/Wrist/Arm Normally Again and Resume Former Household Responsibilities (Cooking,Cleaning,Yard, etc.) Goal:: pt will demo full right thumb ROM without signs of triggering by d.c Goal:: pt will report no pain greater than 2/10 with use of right hand with ADLs and IADls by d.c. Goal:: Pt will demo understanding of joint protection and ergonomics when performing BADLs and IADLs by d/c Pt will demo understanding of adaptive Equipment use to decrease stress on joints to allow pt to perform BADSL and IADLS at YOVANNY level. Plan Plan: D/C pt at this time- pt to cont with use of orthosis- pt continues to have trigger/catch. D/C Information Discharge Comments: pt was seen for 6 OT sessions for conservative tx of right trigger thumb/tendonitis- pt made some gains but continues to have trigger/catch. pt would benefit from surgical consultation/surgery. pt demo understanding and agree to POC. d/c sentence: If there are questions or concerns regarding this patient's occupational therapy, please fell free to call me at [phone]. Thank you for the referral of this patient. Sincerely, Yanet Snider, OTR/L, CHT
== END 2024-06-24 19:00 | disposition home or self-care (01) ==
LOC: OT 10:00
PROVIDERS: PCP Family Medicine; Referring Provider Family Medicine; Visit Provider Family Medicine
DX: M25.841 Other specified joint disorders, right hand (principal); M62.462 Contracture of muscle, left lower leg
CPT/HCPCS: 97035; 97110; 97140; 97161; 97166; 97530

== ENCOUNTER → 2024-07-05 | Outpatient (CLI) | payer MEDICARE, SELFPAY ==
[2024-07-05 15:36] LABS: Microalbumin,Random Urine < 12.0 mg/L (NO RANGE EST.); Microalbumin:Creatinine Ratio UNABLE TO CALCULATE mg/g CRE
[2024-07-05 15:37] LABS: Hemoglobin A1c 6.4 % (<=5.6)
[2024-07-05 15:41] LABS: ALB/GLOB Ratio 1.7 RATIO (0.9-2.4); AST(SGOT) 21 U/L (<=37); Alanine Aminotransfer ALT/SGPT 20 U/L (<=46); Albumin, Serum 4.1 g/dL (3.4-4.8); Alkaline Phosphatase 56 U/L (40-129); Anion Gap 10 (5-15); BUN 18 mg/dL (4-19); BUN/Creat Ratio 20.2 RATIO (10-20); Calcium,Total 8.8 mg/dL (7.6-11.0); Carbon Dioxide 21.6 mmol/L (21.0-32.0); Chloride 106 mmol/L (98-108); Cholesterol 181 mg/dL (<=200); EST Glomerular Filtration Rate 91 (>60); Globulin 2.3 g/dL (2.2-4.2); Glucose 122 mg/dL (70-99); High Density Lipoprotein 63 mg/dL; Low Density Lipoprotein Calc. 108 mg/dL; Protein, Total 6.4 g/dL (5.9-8.4); Sodium Level 138 mmol/L (133-145); Total Bilirubin 0.68 mg/dL (0.00-1.30); Triglycerides 51 mg/dL; Very Low Density Lipoprotein 10 mg/dL (5-40); cholesterol:hdl ratio screen 2.87
== END | disposition home or self-care (01) ==
LOC: MTLAB 11:29
PROVIDERS: PCP Family Medicine; Referring Provider Family Medicine; Visit Provider Family Medicine
DX: E11.9 Type 2 diabetes mellitus without complications (principal)
CPT/HCPCS: 36415; 80053; 80061; 82043; 82570; 83036

== ENCOUNTER 2024-07-06 05:58 | Day surgery (SDC) | payer MEDICARE, SELFPAY ==
[2024-07-06] VITALS (8 sets, daily range): BP systolic 121–131; BP diastolic 61–72; PULSE 54–72; RESP 16–20; TEMP 36.3–36.6; O2SAT 92–98; BMI 24.5
--- NOTE | 2024-07-06 06:29 | PCM.PRE.AN2 ---
ASA Classification* ASA Classification ASA Classification: 2 Assessment & Plan Anesthesia* Anesthesia Assessment Anesthesia Assessment: Discussed sedation and/or anesthesia options, risks, benefits, and alternatives with patient/parents/legal guardian/POA. Questions invited. The patient/parents/legal guardian/POA seems to understand and agrees to proceed with anesthesia plan. Reviewed the physical assessment, medical history, allergy history and patient home medications list prior to surgery/procedure/anesthetic and documented any changes. Performed airway and anesthesia risk assessments. Anesthesia Type Anesthesia Type: MAC and Block (Maxime block) History Source History Obtained from:: Patient and Chart Anesthesia Focused Assessment* Temperature: 97.4 F Pulse Rate: 57 Blood Pressure: 130/61 Respiratory Rate: 16 Pulse Ox: 98 Oxygen Delivery Method: Room Air Airway Assessment Mouth opens: >3 cm Mallampati Score: II Teeth Condition: Intact Neck Range of motion (ROM): Full ROM Focused Labs Anesthesia Preop lab: CBC WBC 7.3 K/mm3 (4.4-11.0) 03/18/24 10:25 03/18/24 RBC 5.10 M/mm3 (4.6-6.2) 03/18/24 10:25 03/18/24 Hgb 15.5 g/dL (13.0-16.5) 03/18/24 10:25 03/18/24 Hct 47.0 % (40-54) 03/18/24 10:25 03/18/24 Plt Count 195 K/mm3 (150-450) 03/18/24 10:25 03/18/24 CHEMISTRY Potassium 4.0 mmol/L (3.3-5.1) 07/05/24 11:42 07/05/24 Sodium 138 mmol/L (133-145) 07/05/24 11:42 07/05/24 BUN 18 mg/dL (4-19) 07/05/24 11:42 07/05/24 Creatinine 0.90 mg/dL (0.70-1.20) 07/05/24 11:42 07/05/24 Glucose 122 mg/dL (70-99) H 07/05/24 11:42 07/05/24 TSH 0.95 uIU/mL (0.358-3.74) 09/08/17 13:15 09/08/17 COAG PT 13.8 SECONDS (11.7-14.9) 09/08/17 13:15 09/08/17 Pre-Assessment Diagnosis/Proposed Procedure Planned Operative Procedure(s): RIGHT THUMB TRIGGER RELEASE RIGHT CARPAL TUNNEL Anesthesia History 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 When Was Last Pacemaker Check QUESTION #4 FULL TEXT: You/Your Family Experience fever (hyperthermia) with Anesthesia Last Oral Intake Last Oral intake: Last Oral Intake NPO since 00:00 07/06/24 06:23 Meds taken in AM with sips of Yes 07/06/24 06:23 water? 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 Female No 06/29/24 10:06 HX of Motion Sickness No 06/29/24 10:06 HX of N/V After Surgery No 06/29/24 10:06 Non-Smoker Yes 06/29/24 10:06 Duration of Surgery greater Yes 06/29/24 10:06 than 60 minutes Number of Risk Factors 2 06/29/24 10:06 PONV Score Moderate Risk 06/29/24 10:06 Height & Weight Height & Weight: Anesthesia: Height & Weight Height 5 ft 9 in 07/06/24 06:23 Weight: 75.5 kg 07/06/24 06:23 Body Mass Index (BMI) 24.5 07/06/24 06:23 Respiratory Assessment Respiratory Assessment - batch mixing truck driver: Respiratory Tract Infection Hx - 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 Has anyone observed you stop No 06/29/24 10:06 breathing during sleep? STOP Results Negative 06/29/24 10:06 QUESTION #5 FULL TEXT : Do you snore loudly (louder than talking or can be heard through closed doors)? 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 Specify any problems Hx of Preganancy in last 3 N/A 06/29/24 10:06 Months Nurse Filling Out Transfusion DSCHRIBER 06/29/24 10:06 & Questions: Date: 06/29/24 06/29/24 10:06 Time: 10:08 06/29/24 10:06 Patient unable to answer at this time (ie. 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: /Reproductive Hx- batch mixing truck driver Hx Now No 06/29/24 10:06 Gestational Age (in weeks): EDC: Hx Hx Para Hx Section SAB No 06/29/24 10:06 Active Medications Active Medications: Current Medications Generic Name Dose Route Start Last Admin Trade Name Freq PRN Reason Stop Dose Admin Cefazolin Sodium 2 gm/ N/A 20 mls @ 400 mls/hr 07/06/24 07:30 IV 07/06/24 07:32 X1 [facility] Medical History Wears hearing aid History of steroid therapy Diabetes Back pain Dietary restriction Gastric reflux Non-smoker Neoplasm of skin of left lateral forehead Neoplasm of skin of upper arm Neoplasm of skin of back Neoplasm of skin of lip Neoplasm of skin of nose Actinic keratosis Other seborrheic keratosis Cellulitis of right hand Open wound of right hand due to cat bite Cat bite Seborrheic keratosis Pterygium of nail Acquired deformity of nail of finger Mucous cyst of digit of left hand Heart murmur Hearing problem Colon cancer screening Hypertension Home Medications ?Medication ?Instructions ?Recorded ?Last Taken ?Type doxazosin 1 mg tablet 1 mg PO QHS heart 03/15/15 07/05/24 History lisinopril 20 mg tablet 20 mg PO QHS bp 03/15/15 07/05/24 History metoprolol succinate 25 mg 12.5 mg PO QHS heart 04/30/17 07/05/24 History tablet,extended release 24 hr esomeprazole magnesium 40 mg 40 mg PO DAILY gerd 07/14/19 07/06/24 History capsule,delayed release diclofenac sodium 1 % topical gel 2 g topical .PRN 09/13/20 Unknown History (Voltaren Arthritis Pain) blood sugar diagnostic (Digital [employer] #10 ea 03/16/24 Unknown History Ultra Test strips) blood-glucose sensor ([employer] G7 #1 ea 03/16/24 Unknown History Sensor device) dapagliflozin propanediol 5 mg 5 mg PO QDAY 03/16/24 07/02/24 History tablet (Farxiga) lancets 33 gauge (Digital [employer] Delica #100 ea 03/16/24 Unknown History Plus Lancet) metformin 500 mg tablet 500 mg PO BID 03/16/24 07/05/24 History magnesium 200 mg tablet 400 mg PO QHS 06/29/24 07/05/24 History pyridoxine (vitamin B6) 100 mg 100 mg PO DAILY 06/29/24 07/05/24 History tablet Allergy/AdvReac Type Severity Reaction Status Date / Time amlodipine (From Norvasc) Allergy Unknown Swelling Verified 06/29/24 10:01 atenolol Allergy Unknown Swelling Verified 06/29/24 10:01 ketoprofen (From Orudis) Allergy Unknown Unknown Verified 06/29/24 10:01 morphine AdvReac Nausea Verified 06/29/24 10:01 Family History Father Diabetes Heart disease Hypertension CVA (cerebral vascular accident) Mother Hypertension Cancer Alzheimer's dementia Anesthesia complication Breast cancer Surgical History Hx of colonoscopy History of excision of lesion S/P excision of ganglion cyst History of esophagogastroduodenoscopy (EGD) (~07/27/18) H/O lateral meniscus repair of right knee History of cataract extraction History of hydrocelectomy History of shoulder surgery History of gynecomastia History of inguinal herniorrhaphy History of tonsillectomy and adenoidectomy Cataracts, bilateral S/P right knee arthroscopy Gynecomastia S/P shoulder surgery History of tonsillectomy H/O hernia repair Social History Smoking Status: Never smoker second hand exposure: No alcohol intake: never substance use type: does not use caffeine: Yes frequency: 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
[2024-07-06 06:54] LABS: Bedside Glucose 125 mg/dL (74-106)
--- NOTE | 2024-07-06 07:17 | HP.PCM.SX_ITS ---
HPI - General HPI Narrative Triggering of right thumb and carpal tunnel syndrome symptoms in the right hand. 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 These problems have been occurring for the past 8 months, without signs of improvement. He was diagnosed with type 2 diabetes in November 2023 when the symptoms of triggering and carpal tunnel began. The patient has not cortisone injection. No personal or family history of Dupuytren's disease or any signs of this disease. The patient reports having difficulty performing activities of daily living such as putting on socks due to finger flexion contracture. Last Hg A1C was 6.3 in Mar 2024 With regards to the complaint of possible carpal tunnel, patient reports (+) night awakening. The patient has tried wearing wrist splint, without much improvement of symptoms. He has also seen an occupational therapist for the triggering without much improvement. He reports the numbness and tingling around the thumb index and long fingers, and is episodic but worse at night. No nerve conduction studies Current Encounter (DATE OF SURGERY H&P UPDATE): I saw and examined the patient this morning in pre-operative holding. We discussed risks and benefits of today's surgery and they would like to proceed. NO CHANGE in health history since last seen and evaluated. Ready to proceed with surgery. [facility] Medical History Wears hearing aid History of steroid therapy Diabetes Back pain Dietary restriction Gastric reflux Non-smoker Neoplasm of skin of left lateral forehead Neoplasm of skin of upper arm Neoplasm of skin of back Neoplasm of skin of lip Neoplasm of skin of nose Actinic keratosis Other seborrheic keratosis Cellulitis of right hand Open wound of right hand due to cat bite Cat bite Seborrheic keratosis Pterygium of nail Acquired deformity of nail of finger Mucous cyst of digit of left hand Heart murmur Hearing problem Colon cancer screening Hypertension Home Medications ?Medication ?Instructions ?Recorded ?Last Taken ?Type doxazosin 1 mg tablet 1 mg PO QHS heart 03/15/15 0 07/05/24 History lisinopril 20 mg tablet 20 mg PO QHS bp 03/15/15 History metoprolol succinate 25 mg 12.5 mg PO QHS heart 07/05/24 History tablet,extended release 24 hr esomeprazole magnesium 40 mg 40 mg PO DAILY gerd 07/1307/06/24 History capsule,delayed release diclofenac sodium 1 % topical gel 2 g topical .PRN 12/26 Unknown History (Voltaren Arthritis Pain) blood sugar diagnostic ([employer] [employer] #10 ea 03/16/24 Unkno wn History Ultra Test strips) blood-glucose sensor (Dex[employer] G7 #1 ea 03/16/24 Unknown History Sensor device) dapagliflozin propanediol 5 mg 5 mg PO QDAY 03/16/24 0 07/02/24 History tablet (Farxiga) lancets 33 gauge ([employer] [place] [employer] [employer] #100 ea 03/16/24 Unk nown History Plus Lancet) metformin 500 mg tablet 500 mg PO BID 03/16/2407/05 History magnesium 200 mg tablet 400 mg PO QHS 06/29/2407/05 History pyridoxine (vitamin B6) 100 mg 100 mg PO DAILY 5 07/05/24 History tablet Allergy/AdvReac Type Severity Reaction Status Date / Time amlodipine (From Norvasc) Allergy Unknown Swelling Verified 06/29/24 10:01 atenolol Allergy Unknown Swelling Verified 06/29/24 10:01 ketoprofen (From Orudis) Allergy Unknown Unknown Verified 06/29/24 10:01 morphine AdvReac Nausea Verified 06/29/24 10:01 Family History Father Diabetes Heart disease Hypertension CVA (cerebral vascular accident) Mother Hypertension Cancer Alzheimer's dementia Anesthesia complication Breast cancer Surgical History Hx of colonoscopy History of excision of lesion S/P excision of ganglion cyst History of esophagogastroduodenoscopy (EGD) (~07/27/18) H/O lateral meniscus repair of right knee History of cataract extraction History of hydrocelectomy History of shoulder surgery History of gynecomastia History of inguinal herniorrhaphy History of tonsillectomy and adenoidectomy Cataracts, bilateral S/P right knee arthroscopy Gynecomastia S/P shoulder surgery History of tonsillectomy H/O hernia repair Social History Smoking Status: Never smoker second hand exposure: No alcohol intake: never substance use type: does not use caffeine: Yes frequency: 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 use: always additional social history: DOES USE ASPIRIN DOES USE IBUPROFEN Vital Signs Vital Signs Vital Signs: 07/06/24 06:21 07/06/24 06:23 07/06/24 06:51 Temperature 97.4 F L 97.4 F L Temperature Source Temporal Pulse Rate 57 L 57 L Respiratory Rate 16 16 Respiratory Pattern Normal Blood Pressure 130/61 H 130/61 H Blood Pressure Mean 84 Blood Pressure Source Monitor Blood Pressure Position Semi-Fowlers Blood Pressure Location Left Arm Pulse Ox 98 98 Oxygen Delivery Method Room Air Room Air Weight Weight: 166 lb 7.184 oz Body Mass Index (BMI) 24.5 Physical Exam Narrative PE: Exam of the right upper limb revealed: ([+]) tenderness to palpation over A1 cinda region of right thumb finger. ([+]) reproducible triggering of the right thumb finger. (Negative) Table Top test Exam of the right upper limb revealed: ([+]) Tinel sign over carpal tunnel. ([+]) Phalen's and Durken's test. ([+]) thumb opposition without thenar atrophy. ([-]) tenderness to palpation over volar forearm near pronator teres. ([-]) numbness in median nerve distribution with compression of pronator teres. ([-]) Tinel sign along median nerve distribution over pronator teres region. ([-]) Tinel sign along median nerve distribution with passive supination of forearm. ([-]) decreased sensation over thenar eminence. Results Lab / Micro Data Labs: Laboratory Results - last 24 hr 07/06/24 06:29: POC Glucose 125 H Assessment & Plan Assessment/Plan (1) Carpal tunnel syndrome of right wrist: (2) Trigger finger: PLAN: Plan Trigger Finger, RIGHT THUMB I discussed with Mr. Alex the diagnosis and proposed treatment options.?? Treatment options for trigger finger discussed. Non-surgical treatment options include splinting, oral NSAIDs, and cortisone injection. When these options fail to improve symptoms, surgical release of T1 cinda would be recommended.Furthermore, any surgery on the hand (such as trigger finger release), in the presence of Dupuytren's disease, may lead to thickened and sensitive scar, as well as possible prolonged hand edema and stiffness. Patient desires to proceed with surgical release of the right T1 cinda. Patient understands that the sutures will be removed after 2-3 weeks, followed by scar massage and range of motion exercises to prevent stiffness. After surgery, there will be lifting restriction of < 5 lbs for 4 weeks to allow the incision to fully heal. Surgical consent was signed in clinic today. Case request has been submitted. Carpal Tunnel, RIGHT We discussed with Mr. Alex the diagnosis and proposed treatment options.?? We discussed that the patient likely has carpal tunnel syndrome. However, there has not been any EMG/NCS study. He is not interested in obtaining this study, which I think is reasonable at this point since his exam and symptoms are quite consistent with the RIGHT CTS. We discussed the surgical treatment options for carpal tunnel decompression.? One option is to perform open carpal tunnel release, which involves making an incision on the volar surface of the hand, between the thenar and hypothenar region. This can be done under local anesthesia, and can successfully decompress the carpal tunnel all of the time. The main disadvantage is a scar in the volar hand that can be painful and sensitive for a while, and the possibility of a wound dehiscence if the hand is over-used in the post-operative period. The other option is to perform endoscopic carpal tunnel release, which involves using an endoscope to decompress the carpal tunnel through a small incision in the distal forearm. The benefit of this approach is to avoid making an incision on the volar surface of the hand, with less scar tenderness. However, in 5% of the patient, the endoscopic approach will need to be converted to the open approach due to inability to clearly visualize the undersurface of the transvers e carpal ligament using the endoscope (usually due to excessive tenosynovitis in the wrist, or scarring from prior infection), which needs to be completely divided to decompress the carpal tunnel. We also discussed that although the endoscopic approach has faster recovery within the first 3 months, the long-term outcome after 1 year is equivalent with both the open and endoscopic approach. The patient desires to proceed with endoscopic carpal tunnel release, with possible conversion to the open approach if good visualization cannot be achieved using the endoscope. I talked the patient extensively about the risks of surgery, including bleeding, infection, damage to surrounding structures (especially nerves (thumb digital nerves and median nerve/recurrent branch)), surgical site dehiscence and wound formation, need for wound care, need for repeat operations, failure to obtain the desired result, DVT/PE, and the risks of anesthesia including , including stroke (from low blood pressure/ischemia or clot). The benefits and alternatives of this surgery were also discussed. All of their questions were answered, and they agreed to proceed with surgery. I also discussed how the symptoms may not get better, and may take a year to improve with regards to the CT, but that you're preventing worsening and preventing muscle wasting. Plan for right endoscopic CT release and Right trigger thumb release. INTERVAL H&P PLAN, DATE OF SURGERY: We will proceed with surgery today. Discussed above noted risks, benefits, and alteratives to the procedure. Reiterated risks of nerve damage and failure to obtain the desired results of the CT release and the trigger thumb release. Understands that may have to convert to open if cannot get safe view with endoscope. Plan for right endoscopic CT release and Right trigger thumb release.
[2024-07-06] MEDS: Cefazolin 2 GM in Syringe IV (07:32)
[2024-07-06] MEDS: Bupiv/Epi 0.25% 30 ML Vial (08:00)
--- NOTE | 2024-07-06 08:38 | PCM.POST.ANE ---
Anesthesia: Postop Eval I Current Vital Signs Temperature: 97.6 F Pulse Rate: 72 Blood Pressure: 131/65 Respiratory Rate: 20 Pulse Ox: 96 Oxygen Delivery Method: Room Air Assessment Airway patent: Yes Spontaneous unlabored respirations: Yes Mental status: Awake nausea: Yes Vomiting: No Anesthesia Complication: No Fluid Hydration Crystalloid volume administer (ml): 10 Total IV fluid infused: 10 Progress Note Post-operative progress note: patient given zofran no emesis Anesthesia document: Postop Eval 1 completed: Yes
[2024-07-06] MEDS: Meclizine HCl 25 MG Tablet PO (09:08)
--- NOTE | 2024-07-06 11:11 | POSTOPAN2_ITS ---
Anesthesia Postop Eval I Sum Postop Eval Completion status Anesthesia document: Postop Eval 1 completed: Yes Anesthesia Postop Eval I Summary Anesthesia Postop Eval I Summary: Anesthesia Postop Eval I: Assessment Summary Airway patent Yes 07/06/24 08:39 DEATH CLEARANCE [email or web address] Spontaneous unlabored Yes 07/06/24 08:39 DEATH CLEARANCE [email or web address] respirations Mental status Awake 07/06/24 08:39 DEATH CLEARANCE [email or web address] nausea Yes 07/06/24 08:39 DEATH CLEARANCE COORDINATOR.[email or web address] Vomiting No 07/06/24 08:39 DEATH CLEARANCE COORDINATOR.[email or web address] Anesthesia Postop Eval I: Fluid Summary Crystalloid volume administer 10 07/06/24 08:39 DEATH CLEARANCE [email or web address] (ml) Colloids volume administered ( ml) Blood Product volume administered (ml) Total IV fluid infused 10 07/06/24 08:39 DEATH CLEARANCE [email or web address].[email or web address] Anesthesia Postop Eval I: Summary Notes Anesthesia Complication No 07/06/24 08:39 DEATH CLEARANCE [email or web address].[email or web address] Anesthesia Complication Comment: Post-operative progress note patient given 07/06/24 08:39 DEATH CLEARANCE COORDINATOR.[email or web address] zofran no emesis Anesthesia: Postop Eval II Evaluation Mental status: Awake and Calm Pain Level: 1 nausea: No Vomiting: No Complications Anesthesia Complication: No
--- NOTE | 2024-07-06 11:11 | PCM.POSTANE2 ---
Anesthesia Postop Eval I Sum Postop Eval Completion status Anesthesia document: Postop Eval 1 completed: Yes Anesthesia Postop Eval I Summary Anesthesia Postop Eval I Summary: Anesthesia Postop Eval I: Assessment Summary Airway patent Yes 07/06/24 08:39 FELTMAKER [email or web address] Spontaneous unlabored Yes 07/06/24 08:39 FELTMAKER AND [email or web address] respirations Mental status Awake 07/06/24 08:39 FELTMAKER AND [email or web address] nausea Yes 07/06/24 08:39 FELTMAKER AND [email or web address] Vomiting No 07/06/24 08:39 FELTMAKER AND [email or web address] Anesthesia Postop Eval I: Fluid Summary Crystalloid volume administer 10 07/06/24 08:39 FELTMAKER AND [email or web address] (ml) Colloids volume administered ( ml) Blood Product volume administered (ml) Total IV fluid infused 10 07/06/24 08:39 FELTMAKER AND [email or web address] Anesthesia Postop Eval I: Summary Notes Anesthesia Complication No 07/06/24 08:39 FELTMAKER AND [email or web address].[email or web address] Anesthesia Complication Comment: Post-operative progress note patient given 07/06/24 08:39 FELTMAKER AND [email or web address].[email or web address] zofran no emesis Anesthesia: Postop Eval II Evaluation Mental status: Awake and Calm Pain Level: 1 nausea: No Vomiting: No Complications Anesthesia Complication: No
--- NOTE | 2024-07-07 11:14 | OP.PCM_ITS ---
Operative Report (Standard) Operative Information Date of Procedure: 07/06/24 Pre-Operative Diagnosis: 1) right carpal tunnel syndrome 2) right trigger thumb Post-Operative Diagnosis: Same Surgery/Procedure Performed: 1) endoscopic right carpal tunnel release (CPT: 35106) 2) right trigger thumb release (CPT: 84299) hydrogeologist: Yes Progressive Care Unit Registered Nurse: Keyon Vincent Tasks completed by teachers assistant: Retracting Type of Anesthesia: Block,[place]/Supplemental (5 cc of 0.25% Marcaine in addition to the ESTELITA block ) RN Documented Start/Stop Times: Operation Date: 07/06/24 07:30 Case Time Into Pre-Op 07/06/24 06:03 Out of Pre-Op 07/06/24 07:25 Anesthesia Start 07/06/24 07:30 Into Room 07/06/24 07:30 Procedure Start 07/06/24 07:49 Procedure End 07/06/24 08:20 Anesthesia End 07/06/24 08:25 Out of Room 07/06/24 08:25 Into Recovery 07/06/24 08:26 Out of Recovery 07/06/24 08:44 Into Phase II Recovery 07/06/24 08:46 Out of Phase II 07/06/24 10:34 Procedure Start Time: 07:49 Procedure Stop Time: 08:20 Select all DRAINS/GRAFTS/IMPLANTS that apply: None Estimated Blood Loss: minimal Specimen collected: No Description of surgery: Indications: Lalito Alex is a delightful 74-year-old male with history of right wrist carpal tunnel (he has provocative Phalen, Durkan's, and Tinel sign at the wrist as well as positive nighttime awakening from numbness and tingling in the radial 3 digits). He also has triggering of the right thumb. Elected for surgery. Understands the risks, benefits, and alternatives to the procedures. Procedure details: Patient was critically identified in preoperative holding and taken back to the operating room he was administered a [place] block. The patient was prepped and draped in sterile fashion and all proper timeouts were performed. The [employer] Gwendolyn scope was used for the endoscopic carpal tunnel release. A 15 blade scalpel was used to make a small transverse incision over the palmaris at an existing wrist crease just proximal to the carpal tunnel. Bipolar electrocautery was used to cauterize venous branches and the palmaris longus was retracted radially. A small incision was then made in the antebrachial fascia and carried proximally and distally with care taken to perform this under direct visualization protecting the underlying median nerve. The dilator for the endoscope was then placed under the distal antebrachial fascia and into the carpal tunnel. The synovial scraper was then used to scrape synovium off of the transverse carpal ligament. The endoscope was then placed within the carpal tunnel and direct visualization of the transverse carpal ligament was obtained. Beginning distally, the transverse carpal ligament was released under direct vis ualization. All fibers of the ligament were cut back to the level of the transverse skin incision to the level of the antebrachial fascia. Attention was then turned to the T1 cinda release. An oblique triangular incision was made over the T1 cinda with a 15 blade scalpel and care was taken to dissect the digital nerve branches to the thumb, retract them carefully and preserve them. Dissection was taken with tenotomy scissors down to the T1 cinda where the thick T1 cinda over the MCP joint was released with a 15 blade scalpel with a longitudinal incision. Tendon gliding was confirmed. The tourniquet was then let down and hemostasis was obtained with bipolar electrocautery and 5 cc of 0.25% Marcaine was used for local block at the incisions. The patient tolerated the procedure well. The wounds were closed with interrupted horizontal mattress 4-0 nylon sutures. Xeroform, gauze, bulky Toño and loose Coban were applied. Postoperative plan: Leave dressing on until clinic on 09 July 2024. Patient will come to clinic for wound check. Sutures to stay in for 2-week. Surgical Findings: Thick tight T1 cinda over the right thumb Complications Complications: No
== END 2024-07-06 10:34 | disposition home or self-care (01) ==
LOC: SDC 06:01 → AC 06:03
PROVIDERS: PCP Family Medicine; Referring Provider Surgery Plastic and Reconstructive Surgery; Visit Provider Surgery Plastic and Reconstructive Surgery
PROC: (CPT 26055; 2024-07-06 07:15)
DX: G56.01 Carpal tunnel syndrome, right upper limb (principal); E11.9 Type 2 diabetes mellitus without complications; M65.311 Trigger thumb, right thumb; I10 Essential (primary) hypertension; K21.9 Gastro-esophageal reflux disease without esophagitis; Z79.899 Other long term (current) drug therapy; Z79.84 Long term (current) use of oral hypoglycemic drugs
CPT/HCPCS: 82962; A4216; J2405

== ENCOUNTER → 2024-07-08 | Outpatient (CLI) | payer MEDICARE, SELFPAY ==
--- NOTE | 2024-07-08 12:32 | RAD_ITS ---
EXAM: XR Left Knee, 3 Views CLINICAL INDICATION: ANTERIOR AND PROXIAML KNEE PAIN, CHRONIC TECHNIQUE: Three views of the left knee. COMPARISON: No relevant prior studies available. FINDINGS: BONES/JOINTS: Moderate degenerative changes of the medial compartment of the knee joint. No acute fracture. No dislocation. SOFT TISSUES: Unremarkable. RAD/Knee 3 Views IMPRESSION: Degenerative changes as above. Reading Location: [facility]
== END | disposition home or self-care (01) ==
LOC: MTRAD 12:31
PROVIDERS: PCP Family Medicine; Referring Provider Family Medicine; Visit Provider Family Medicine
DX: M25.562 Pain in left knee (principal)
CPT/HCPCS: 73562

== ENCOUNTER → 2024-09-07 | Outpatient (CLI) | payer MEDICARE, SELFPAY ==
[2024-09-07 12:53] LABS: PSA,Total - Annual Screen 1.51 ng/mL (0.02-4.00)
== END | disposition home or self-care (01) ==
LOC: MFPLAB 10:13
PROVIDERS: PCP Family Medicine
DX: Z12.5 Encounter for screening for malignant neoplasm of prostate (principal)
CPT/HCPCS: 36415; 84153; G0103

== ENCOUNTER → 2025-01-07 | Outpatient (CLI) | payer MEDICARE, SELFPAY ==
[2025-01-07 12:51] LABS: AST(SGOT) 19 U/L (<=37); Alanine Aminotransfer ALT/SGPT 20 U/L (<=46); Albumin, Serum 4.0 g/dL (3.4-4.8); Alkaline Phosphatase 62 U/L (40-129); Anion Gap 11 (5-15); BUN 17 mg/dL (4-19); BUN/Creat Ratio 17.8 RATIO (10-20); Calcium,Total 8.5 mg/dL (7.6-11.0); Carbon Dioxide 23.7 mmol/L (21.0-32.0); Chloride 104 mmol/L (98-108); Creatinine, Urine (random) 199.00 mg/dL (39.00-259.00); Globulin 2.0 g/dL (2.2-4.2); Glucose 122 mg/dL (70-99); Microalbumin,Random Urine < 12.0 mg/L (<20 mg/L); Potassium 4.2 mmol/L (3.3-5.1)
== END | disposition home or self-care (01) ==
LOC: MFPLAB 09:55
PROVIDERS: PCP Family Medicine; Visit Provider Family Medicine
DX: E11.9 Type 2 diabetes mellitus without complications (principal)
CPT/HCPCS: 36415; 80053; 82043; 82570; 83036

== ENCOUNTER → 2025-03-09 | Outpatient (CLI) | payer MEDICARE, SELFPAY ==
[2025-03-09 10:19] LABS: Hematocrit 40.4 % (40-54); Hemoglobin 13.8 g/dL (13.0-16.5); Immature Granulocytes Count 0.030 X10^3/uL (0.0-0.0); Mean Corp Hgb Conc 34.2 g/dL (32-36); Mean Corpuscular Volume 91.8 fL (80-94); Mean Platelet Vol. 10.7 fl (6.2-12.0); NRBC Flagged by Analyzer 0 % (0-5); Platelet Count 175 K/mm3 (150-450); RBC Distribution Width CV 12.6 % (11.6-14.6); RBC Distribution Width SD 42.2 fl (35.1-43.9); Red Blood Count 4.40 M/mm3 (4.6-6.2); White Blood Count 5.0 K/mm3 (4.4-11.0)
[2025-03-09 10:34] LABS: Creatinine, Urine (random) 120.00 mg/dL (39.00-259.00); Microalbumin,Random Urine 35.1 mg/L (<20 mg/L)
[2025-03-09 10:44] LABS: AST(SGOT) 18 U/L (<=37); Alanine Aminotransfer ALT/SGPT 17 U/L (<=46); Albumin, Serum 4.1 g/dL (3.4-4.8); Alkaline Phosphatase 62 U/L (40-129); Anion Gap 11 (5-15); BUN 20 mg/dL (4-19); BUN/Creat Ratio 20.4 RATIO (10-20); Calcium,Total 9.4 mg/dL (7.6-11.0); Carbon Dioxide 24.0 mmol/L (21.0-32.0); Chloride 105 mmol/L (98-108); Globulin 2.3 g/dL (2.2-4.2); Glucose 139 mg/dL (70-99); Potassium 4.3 mmol/L (3.3-5.1)
== END | disposition home or self-care (01) ==
LOC: MFPLAB 08:55
PROVIDERS: PCP Family Medicine; Visit Provider Family Medicine
DX: E11.9 Type 2 diabetes mellitus without complications (principal); R35.0 Frequency of micturition
CPT/HCPCS: 36415; 80053; 82043; 82570; 84443; 85025